=== PATIENT | female | born 1945 | race Caucasian/White ===

== ENCOUNTER 2020-04-29 14:36 | Emergency (ER) | payer MEDICARE, SELFPAY ==
[2020-04-29 14:44] VITALS: BP 140/61; PULSE 71; RESP 18; TEMP 37.5; O2SAT 97
--- NOTE | 2020-04-29 15:40 | ED.SKABFB ---
HPI - Skin/Abscess/Foreign Bdy General Chief complaint: Skin/Abscess/Foreign Body Stated complaint: sore on back of right arm Time Seen by Provider: 04/29/20 15:40 Source: patient Mode of arrival: ambulatory Limitations: no limitations History of Present Illness HPI narrative: Ronald Rivera is a 74 yo feale with a PMH of HTN, prediabetes, mixed connective tissue disease, high cholesterol, fibrosis of lung, here for complaints of swelling around cyst on right arm after scratching 3 to 4 days ago. She stated that she protects on the cyst which made the cyst become more edematous and she scratched it with her nails Related Data Home Medications Medication Instructions Recorded Confirmed flaxseed oil 1,000 mg capsule 1,000 mg PO DAILY 09/24/19 04/29/20 metoprolol succinate 25 mg 25 mg PO DAILY 09/24/19 04/29/20 tablet,extended release 24 hr omeprazole magnesium 20 mg 20 mg PO DAILY 09/24/19 capsule,delayed release propylene glycol 0.6 % eye drops 1 drop EACH EYE DAILY 09/24/19 04/29/20 hydroxychloroquine 04/29/20 04/29/20 Allergies Allergy/AdvReac Type Severity Reaction Status Date / Time Sulfa (Sulfonamide Allergy Unknown Unknown Verified 04/29/20 15:27 Antibiotics) amoxicillin [From Augmentin] Allergy nausea and Verified 04/29/20 15:27 vomitting clavulanic acid Allergy nausea and Verified 04/29/20 15:27 [From Augmentin] vomitting Review of Systems Review of Systems: Narrative: CONSTITUTIONAL: Denies fever, chills, sweats. EYES: Denies visual changes, redness, discharge. ENT: Denies rhinorrhea, congestion, sore throat, otalgia. CARDIOVASCULAR: Denies chest pain, palpitations, edema. RESPIRATORY: Denies dyspnea, wheezing, cough GASTROINTESTINAL: Denies abdominal pain, nausea, vomiting, diarrhea. GENITOURINARY: Denies dysuria, hematuria, abnormal discharge SKIN: Denies rash or itching. Redness and swelling around existing cyst, NEUROLOGIC: Denies numbness, or focal weakness. PSYCHIATRIC: Denies anxiety or depression. [facility] Surgical History Surgical History H/O cataract extraction 09-03-13, 10-03-13 H/O hernia repair (06/03/15) H/O tubal ligation (1979) H/O: hysterectomy (1987) vaginal Hx of cholecystectomy (06/03/15) Family History Family History Mother Hypertension Family history of coronary artery disease Family history of heart disease in male family member before age 55 Father Family history of emphysema Social History Social History Smoking status: Former smoker Smoking end date: 11/03/1965 Alcohol intake: never Gender identity (if verbalized by the patient): Female Comments At time of signature, I agree with nursing past medical, surgical, social and family history. There is no relevant family history pertinent to the presenting complaint. Exam Narrative: Exam Narrative: GENERAL: This is a well-nourished, well-developed patient, in no distress. HEAD: normocephalic, atraumatic. EYES: Sclera clear/white. Vision is grossly intact. EARS: External ears normal. Hearing grossly intact. NOSE: External nose normal without nasal discharge, nares without redness, no rhinorrhea. THROAT: Mucous membranes moist, NECK: Neck supple, CARDIOVASCULAR: Regular rate and rhythm without murmurs, gallops, or rubs. RESPIRATORY: Clear to auscultation. Breath sounds equal bilaterally. No wheezes, rales, or rhonchi. GASTROINTESTINAL: Abdomen soft, non-tender, SKIN: warm, intact with no suspicious lesions or rash, good texture and turgor. Redness and swelling around cyst on back of right upper arm, minimal induration NEURO: awake, alert, and oriented to person, place and time. There were no obvious focal neurologic abnormalities. Steady gait EXTREMITIES: Normal range of motion. BACK: Nontender without deformity Course C
== END 2020-04-29 16:05 | disposition home or self-care (01) ==
PROVIDERS: Emergency Provider Nurse Practitioner; PCP Family Medicine
DX: L03.113 Cellulitis of right upper limb (principal); I10 Essential (primary) hypertension; R73.03 Prediabetes; E78.00 Pure hypercholesterolemia, unspecified; J84.10 Pulmonary fibrosis, unspecified; M35.1 Other overlap syndromes; Z98.49 Cataract extraction status, unspecified eye; Z87.891 Personal history of nicotine dependence
CPT/HCPCS: 99213; G0463

== ENCOUNTER 2020-08-29 14:26 | Outpatient (CLI) | payer MEDICARE, SELFPAY ==
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
== END 2020-08-29 14:27 | disposition home or self-care (01) ==
PROVIDERS: PCP Family Medicine; Visit Provider Obstetrics & Gynecology
DX: Z12.31 Encounter for screening mammogram for malignant neoplasm of breast (principal)
CPT/HCPCS: 77063; 77067

== ENCOUNTER 2021-08-03 14:47 | Outpatient (CLI) | payer MEDICARE, SELFPAY ==
--- NOTE | ~2021-08-03 | XR_ITS ---
XR lumbar spine 2-3V DATE: 08/03/2021 15:38 INDICATION: Hip pain for 2 weeks TECHNIQUE: AP, lateral, coned lateral lumbosacral views COMPARISON: 05/04/2009 lumbar spine FINDINGS: There is advanced of multilevel degenerative disc disease since 05/04/2009; there is severe d egenerative disc disease at L1-2, moderately severe degenerative disc disease at L2-3, L3-4 and L4-5 and L5-S1. No fracture or bone destruction is evident. The included lower thoracic and lumbar pedicles are intac t. No spondylolisthesis. The sacroiliac joints are normal. Right hip prosthesis. Surgical clips overlie the right upper quadrant, consistent with cholecystectomy. IMPRESSION: Prominent multilevel degenerative disc disease, increased in severity since 05/04/2009 Reviewed, dictated and finalized at location B. IMPRESSION: Prominent multilevel degenerative disc disease, increased in severi ty since 05/04/2009
--- NOTE | ~2021-08-03 | XR_ITS ---
XR hip BI wo pelvis DATE: 08/03/2021 15:38 INDICATION: Hip pain for 2 weeks TECHNIQUE: AP and lateral views of each hip COMPARISON: None FINDINGS: Right hip prosthesis is noted. No fracture or dislocation of the right hip is detected. There is moderately prominent osteoarthritic change at the left hip including joint space narrowing a nd degenerative spurring. No fracture, dislocation, avascular necrosis or bone destruction is detecte d. The pubic symphysis and sacroiliac joints are intact. Diffuse osteopenia. IMPRESSION: Right hip replacement Moderately prominent left hip osteoarthritis No fracture, dislocation or bone destruction of either hip Osteopenia Reviewed, dictated and finalized at location B.
--- NOTE | ~2021-08-03 | XR_ITS ---
XR knee RT 3V DATE: 08/03/2021 15:37 INDICATION: Right knee pain TECHNIQUE: AP, lateral, sunrise views COMPARISON: None FINDINGS: There is tricompartment osteoarthritis, most prominent at the medial compartment. No fracture or dislocation or joint effusion. No periosteal reaction or bone destruction. No radiopaq ue interarticular loose body or chondrocalcinosis is detected. IMPRESSION: Tricompartment osteoarthritis Reviewed, dictated and finalized at location B.
--- NOTE | ~2021-08-03 | XR_ITS ---
XR knee LT 3V DATE: 08/03/2021 15:38 INDICATION: Left knee pain TECHNIQUE: Raoul, AP and lateral views COMPARISON: None FINDINGS: There is tricompartment osteoarthritis, most prominent at the medial compartment. No fracture or dislocation or joint effusion, periosteal reaction or bone destruction, radiopaque int ra-articular loose body or chondrocalcinosis. IMPRESSION: Tricompartment osteoarthritis Reviewed, dictated and finalized at location B.
--- NOTE | ~2021-08-03 | XR_ITS ---
XR foot RT min 3V DATE: 08/03/2021 15:39 INDICATION: Right foot pain for 2 weeks TECHNIQUE: 4 views COMPARISON: 05/19/2019 right foot FINDINGS: Again noted is hallux valgus and bunion deformity. There is osteoarthritic change at the fi rst metatarsophalangeal joint and second metatarsophalangeal joint, to a lesser extent third metatars ophalangeal joint. There is interval severe hypertrophic osteoarthritic change at the first through fifth tarsometatarsa l joints, suggesting neuropathic arthropathy. There is a generator change at the ankle joint. Plantar calcaneal enthesopathy. IMPRESSION: Interval severe hypertrophic osteoarthritic change at the first through fifth metatarsal bones suggesting possible neuropathic arthropathy Osteoarthritic change at the tibiotalar and first through third metatarsophalangeal joints Plantar calcaneal enthesopathy Reviewed, dictated and finalized at location B. IMPRESSION: Interval severe hypertrophic osteoarthritic change at the first thr ough fifth metatarsal bones suggesting possible neuropathic arthropathy Osteoarthritic change at the tibiotalar and first through third metatarsophalan geal joints Plantar calcaneal enthesopathy
== END 2021-08-03 14:48 | disposition home or self-care (01) ==
LOC: ANHIMG 14:56
PROVIDERS: PCP Family Medicine; Visit Provider Family Medicine
DX: M25.559 Pain in unspecified hip (principal); M25.561 Pain in right knee; M25.562 Pain in left knee; M54.50 Low back pain, unspecified; M79.671 Pain in right foot; M77.31 Calcaneal spur, right foot; M17.0 Bilateral primary osteoarthritis of knee; Z96.641 Presence of right artificial hip joint; M16.11 Unilateral primary osteoarthritis, right hip; M85.89 Other specified disorders of bone density and structure, multiple sites; M51.36 Other intervertebral disc degeneration, lumbar region
CPT/HCPCS: 72100; 73521; 73562; 73630

== ENCOUNTER 2021-08-17 15:12 | Outpatient (CLI) | payer MEDICARE, SELFPAY ==
--- NOTE | ~2021-08-17 | US_ITS ---
EXAMINATION: US venous doppler LE RT DATE: 08/17/2021 15:38 INDICATION: Right lower limb pain. TECHNIQUE: Grayscale ultrasound images without and with compression and Doppler ultrasound images of the right lower extremity veins were obtained. COMPARISON: None. FINDINGS: The visualized portions of right common femoral vein, profunda (deep) femoral vein, femoral vein, pop liteal vein, peroneal veins, posterior tibial veins, and greater saphenous vein outflow are patent. IMPRESSION: 1. No deep venous thrombosis. Reviewed, dictated and finalized at location A.
== END 2021-08-17 15:13 | disposition home or self-care (01) ==
LOC: ANHIMG 15:15
PROVIDERS: PCP Family Medicine; Visit Provider Family Medicine
DX: M79.671 Pain in right foot (principal)
CPT/HCPCS: 93971

== ENCOUNTER 2021-08-23 15:29 | Outpatient (CLI) | payer MEDICARE, SELFPAY ==
--- NOTE | ~2021-08-23 | MM_ITS ---
EXAMINATION: MM screening freddy BI w cameron HISTORY: Screening mammogram TECHNIQUE: Craniocaudal and mediolateral oblique 3-D tomosynthesis images were obtained and synthetic 2-D images were generated. CAD analysis was submitted and interpreted. COMPARISON: 08/29/2020, 08/27/2018, 04/09/2017 bilateral digital screening mammogram examinations BREAST PARENCHYMAL COMPOSITION: There are scattered areas of fibroglandular density. FINDINGS: Prominent area of benign fat necrosis is again noted in the upper mid outer right breast. T here is no evidence of suspicious mass, calcification, or architectural distortion to suggest maligna ncy in either breast. There has been no suspicious interval change. IMPRESSION: 1. No mammographic evidence of malignancy. 2. Recommend routine screening mammography in one year. BI-RADS Category 2: Benign finding(s). Reviewed, dictated and finalized at location A.
== END 2021-08-23 15:30 | disposition home or self-care (01) ==
LOC: ANHIMG 15:34
PROVIDERS: PCP Family Medicine; Visit Provider Obstetrics & Gynecology
DX: Z12.31 Encounter for screening mammogram for malignant neoplasm of breast (principal)
CPT/HCPCS: 77063; 77067

== ENCOUNTER 2024-12-28 08:34 | Outpatient (CLI) | payer MEDICARE, SELFPAY ==
--- OUTSIDE RECORDS SUMMARY | 2024-12-28 08:48 | XMS_ITS | Encounter Summary ---
Author Organization [facility] Address [address] [place] [address] Care Team Providers Care Utilization Review Nurse Name Role Phone Faith Shukla DO Primary Care Provider [phone] Reason for Visit * Reason Onset Date Comments Results 09/19/2020 BMP Encounter Details Date Type Department Care Team (Late Contact Info) Description 09/19/2020 Telephone [facility] [address] [place] [address] Keagan Swan MD [address] [place] [address] Results (BMP) Social History Tobacco Use Types Packs/Day Years Used Date Smoking Tobacco: Former Cigarettes 0.5 2 1 963 - 11/03/1964 Smokeless Tobacco: Never Alcohol Use Standard Drinks/Week Comments Yes 0 (1 standard drink = 0.6 oz pur e alcohol) Ocassional drink Sex and Gender Information Value Date Recorded Sex Assigned at Not on file Gender Identity Not on file Sexual Orientation Not on file documented as of this encounter Plan of Treatment Upcoming Encounters Date Type Department Care Team (Late Contact Info) Description 06/30/2025 10:00 AM CDT Office Visit [facility] [address] [place] [id number] Nita Lundy, APNP-[employer] [address] OF PULMONARY/[place] [address] documented as of this encounter Goals Goal Patient Goal Type Associated Problems Recent Progress Patient-Stated? Author Safety General On track( 019 2:02 PM CDT) Nita Maria, RN Note: Expected end date: ONgonig Interventions: Your nurse will assess your risk for falls/injury each visit Use appropriate and safe transfer methods Medication Management General On track( 019 2:01 PM CDT) Nita Maria, RN Note: Expected end date: Ongoing Interventions: Take all medications as prescribed Let your doctor know right away about any changes in your medications documented as of this encounter Visit Diagnoses Not on filedocumented in this encounter Care Teams Utilization Review Nurse Relationship Specialty Start Date End Date Faith Shukla DO [address] [address] PCP - General 05/30/20 documented as of this encounter
--- OUTSIDE RECORDS SUMMARY | 2024-12-28 08:48 | XMS_ITS | Referral Summary ---
Author Organization [facility] [employer] Address [address] [place] [address] Care Team Providers Care Analyst Business Analysis Name Role Phone Faith Shukla DO Primary Care Provider [phone] Source Comments [facility],non-owned Affiliates and Associated Physician Practices is amultiple site organization consisting of ambulatory clinics and hospital sitesin [place], [place], [place] and [place]. This disclosure is being madepursuant to the Care Everywhere program and may not contain all information available regarding this patient. Last updated 18.[facility] [employer] Allergies Active Allergy Reactions Criticality Noted Date Comments Amoxicillin-Pot Clavulanate Rash,Nausea and/or Vomiting High 10/20/2019 Augmentin Nausea and/or Vomiting 03/19/2019 Celecoxib Nausea and/or Vomiting 05/17/2019 Clavulanic Acid Rash,Vomiting Medium 04/12/2019 Sulfa Drugs Nausea and/or Vomiting Low 06/23/2012 Medications * Be aware that medications may not be up to date on this document. Alwaysverify current medications with the patient. Medication Sig Dispensed Refills Start Date End Date Status meloxicam (MOBIC) 15 MG tablet Take 1 (one) tablet by mouth once daily 3 12/30/2017 Active atorvastatin (LIPITOR) 10 MG tablet Take 1 (one) tablet by mouth once daily 06/25/2021 Active Cholecalciferol (VITAMIN D3) 1.25 MG (61419 UT) capsule Take 1 (one) capsule by mouth every 7 days Active hydroxypropyl methylcellulose (Genteal; Genteal Mild To Moderate) 0.3 % ophthalmic solution 1 drop by Ophthalmic route once daily as needed Active carvedilol (Coreg) 6.25 MG tablet Take 1 (one) tablet by mouth every 12 hours 01/23/2023 Active acetaminophen (Tylenol) 500 MG capsule Take 2 (two) capsules by mouth every 8 hours 01/09/2023 Active Eliquis 5 MG tablet Take 1 (one) tablet by mouth 2 times daily 01/20/2024 Active losartan (Cozaar) 100 MG tablet Take 1 (one) tablet by mouth once daily 03/12/2024 03/12/2025 Active Active Problems Problem Noted Date Diagnosed Date Diastolic dysfunction 08/19/2023 08/27/2023 Pulmonary hypertension 08/30/2022 Venous insufficiency 01/04/2020 Assessment & Plan (08/30/2020 1:22 PM CDT): Resolved, not tolerating HCTZ previously stopped. Pt monitoring salt and leg elevation with improvement. 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 Did not tolerated HCTZ. Swelling improved, did not tolerate change to BID metoprolol she is now back on Metoprolol XL with controled HR. Will add Norvasc 2.5 mg daily and she will call in one week with report on effects of her blood pressure. Follow up with Dr. Walters in 3 months. Assessment & Plan (08/30/2020 1:20 PM CDT): Per pt report, BP remains above goal. Did not tolerated HCTZ. Swelling improved, will change Metoprolol to 25mg BID and follow up in three months telephone, telemedicine follow up. My Chart Message Akila in 2-3 weeks with BP log. OA (osteoarthritis) Osteoporosis Idiopathic peripheral neuropathy Bilateral carpal tunnel syndrome Immunizations Name Administration Dates Next Due INFLUENZA VACCINE, TRIV. (AF LURIA, FLUZONE TRIVALENT; 6MO+) (IIV3) 09/10/2007 Covid Moderna primary monovalent 12+ yr 0.5mL ,11/30/2020 INFLUENZA VACCINE 07/22/2022 INFLUENZA VACCINE, HIGH-DOSE , QUADR. (FLUZONE HIGH-DOSE QUADRIVALENT; 65Y+), 0.7 ML (HD-IIV4) 09/17/2021 MODERNA SARS-COV-2 COVID-19 VACCINE 0.25ML 09/22 PNEUMOCOCCAL PPSV23 09/06/2010 Pneumococcal Pcv13 Conj 05/30/2015 TDAP (7yrs+) 03/27/2017 iNFLUENZA VACCINE, RECOM-PADILLA, QUADR. (FLUBLOCK QUADRIVALENT; 18Y+) (RIV4) 09/01/2020 Social History Tobacco Use Types Packs/Day Years Used Date Smoking Tobacco: Former Cigarettes 0.5 2 1 963 - 11/03/1964 Smokeless Tobacco: Never Tobacco Cessation:Counseling Given: No Alcohol Use Standard Drinks/Week Comments Not Currently 0 (1 standard drink = 0.6 oz pur e alcohol) Ocassional drink PHQ-2 Answer Date Recorded PHQ2 TOTAL SCORE 0 03/18/2022 Sex and Gender Information Value Date Recorded Sex Assigned at Not on file Gender Identity Not on file Sexual Orientation Not on file Last Filed Vital Signs Vital Sign Reading Time Taken Comments Blood Pressure 165/75 06/30/2024 4:00 PM CDT Pulse 85 06/30/2024 4:00 PM CDT Temperature 36.4 C (97.6 F) 03/01/2024 1:26 PM CDT Respiratory Rate 22 05/19/2023 2:44 PM CDT Oxygen Saturation 96% 03/01/2024 1:26 PM CDT Inhaled Oxygen Concentration - - Weight 106.1 kg (234 lb) 06/30/2024 4:00 PM CDT Height 165.1 cm (5' 5 ) 06/30/2024 4:00 PM CDT Body Mass Index 38.94 06/30/2024 4:00 PM CDT Plan of Treatment Upcoming Encounters Date Type Department Care Team (Late st Contact Info) Description 06/30/2025 10:00 AM CDT Office Visit [facility] - [facility] [address] [place] [address] Nita Lundy, APNP-[employer] NET DEVELOPER [address] OF PULMONARY/[place] [address] Goals Goal Patient Goal Type Associated Problems Recent Progress Patient-Stated? Author Safety General On track( 2:02 PM CDT) No Nita Anaya, RN Note: Expected end date: ONgonig Interventions: Your nurse will assess your risk for falls/injury each visit Use appropriate and safe transfer methods Medication Management General On track( 2:01 PM CDT) No Nita Anaya, RN Note: Expected end date: Ongoing Interventions: Take all medications as prescribed Let your doctor know right away about any changes in your medications Advance Directives Documents on File Type Date Recorded Patient Manager [employer] Advance Directives and Livin g Will 06/15/2015 12:00 AM Care Teams Analyst Business Analysis Relationship Specialty Start Date End Date Faith Shukla DO [address] [place] [address] PCP - General 05/30/20
--- OUTSIDE RECORDS SUMMARY | 2024-12-28 08:48 | XMS_ITS | Clinical Summary ---
Author Organization [facility] [employer] Address [address] [place] [address] Care Team Providers Care Rn Assessment Name Role Phone Faith Shukla DO Primary Care Provider [phone] Source Comments [facility] [employer],non-owned Affiliates and Associated Physician Practices is amultiple site organization consisting of ambulatory clinics and hospital sitesin [place], [place], [place] and [place]. This disclosure is being madepursuant to the Care Everywhere program and may not contain all information available regarding this patient. 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 [...] RECOM-PADILLA, QUADR. (FLUBLOCK QUADRIVALENT; 18Y+) (RIV4) 09/01/2020 Family History Medical History Relation Name Comments Hyperlipidemia Brother 1 Hyperlipidemia Brother 2 Other - Cardiac Brother 2 afib Sleep Disorder - Other Brother 2 zayda Diabetes - Type 2 Daughter Hypertension Daughter COPD - Chronic Obstructive Pulmonary Disease Father Depression Father Emphysema Father Status: d Anxiety Disorder Mother Bleeding Disorders Mother CAD (Coronary Artery Disease) Mother Heart Disease Mother Status: Deceas ed Heart Surgery Mother angioplasty Hyperlipidemia Mother Hypertension Mother Renal Disease Mother None Known Son Status: Alive Relation Name Status Comments Brother 1 Alive Brother 2 Alive Daughter Alive Father Maternal Grandmother Alive Mother Son Alive Social History Tobacco Use Types Packs/Day Years [...] Description 06/30/2025 10:00 AM CDT Office Visit [facility] - [facility] [address] [place] [address] Nita Lundy, APNP-HEEL PRICKER [address] [facility] [address] OF PULMONARY/[place] [address] Health Maintenance Due Date Last Done Comments BONE DENSITY TESTING 1945 MEDICARE AWV 12 MONTHS 1945 ZOSTER VACCINE (1 of 2) 1995 Respiratory Syncytial Virus (RSV) Vaccine Pt: or over 60 yrs (1 - 1-dose 75+ series) 2020 COVID-19 VACCINE ( season) 2024 09/22/2021, 01/04/2021, 11/30/2020 INFLUENZA VACCINE (#1) 2024 2, 09/17/2021, 09/01/2020, Additional history exists DEPRESSION SCREENING 11/03/2024 07/17/2022 DTAP/TDAP/TD VACCINES (2 - Td or Tdap) 03/27/2027 03/27/2017 PNEUMOCOCCAL VACCINE 50+ Completed 05/30/2015, 02/2010 HEPATITIS B VACCINE Aged Out No longe r eligible based on patient's age to complete this topic HIB VACCINE Aged Out No longer eligi ble based on patient's age to complete this topic HPV VACCINE Aged Out No longer eligi ble based on patient's age to complete this topic MENINGOCOCCAL (Group B) VACCINE Aged Out No longer eligible based on patient's age to complete this topic MENINGOCOCCAL VACCINE Aged Out No michelle stuart eligible based on patient's age to complete this topic Goals Goal Patient Goal Type Associated Problems Recent Progress Patient-Stated? Author Safety General On track( 2:02 PM CDT) No Nita Anaya, JILLIAN Note: Expected end date: ONgonig Interventions: Your nurse will assess your risk for falls/injury each visit Use appropriate and safe transfer methods Medication Management General On track( 2:01 PM CDT) No Nita Anaya, JILLIAN Note: Expected end date: Ongoing Interventions: Take all medications as prescribed Let your doctor know right away about any changes in your medications Advance Directives Documents on File Type Date Recorded Patient Surveillance Monitor Expl anation Advance Directives and Livin g Will 06/15/2015 12:00 AM Care Teams Rn Assessment Relationship Specialty Start Date End Date Faith Shukla DO [address] [place] [address] PCP - General 05/30/20
--- OUTSIDE RECORDS SUMMARY | 2024-12-28 08:48 | XMS_ITS | Clinical Summary ---
Author Organization [facility] Address [address] [place] [id number] Care Team Providers Care Floatlight Powder Mixer Name Role Phone David Pantoja MD Primary Care Provider Social History Tobacco Use Types Packs/Day Years Used Date Smoking Tobacco: Never Assessed Comments Unknown Sex and Gender Information Value Date Recorded Sex Assigned at Not on file Legal Sex Female 6:23 PM CDT Gender Identity Not on file Sexual Orientation Not on file Last Filed Vital Signs Vital Sign Reading Time Taken Comments Blood Pressure 120/80 04/02/2013 11:33 AM CDT Pulse - - Temperature - - Respiratory Rate - - Oxygen Saturation - - Inhaled Oxygen Concentration - - Weight 98 kg (216 lb) 04/02/2013 11:33 AM CDT Height 162.6 cm (5' 4 ) 04/02/2013 11:33 AM CDT Body Mass Index 37.08 04/02/2013 11:33 AM CDT Plan of Treatment Health Maintenance Due Date Last Done Comments Hepatitis C 1963 DTaP, Tdap and Td Vaccines ( 1 - Tdap) 1964 Zoster Vaccines (1 of 2) 1995 Dexa Scan (General) 2010 Pneumococcal Vaccine: 65+ Ye ars (1 of 1 - PCV) 2010 RSV Immunization or 60+ Years (1 - 1-dose 75+ series) 2020 COVID-19 Vaccine ( - 2023-2 5 season) 2024 Influenza Adult (#1) 2024 Meningococcal B Vaccine Aged Out No l onger eligible based on patient's age to complete this topic Meningococcal Vaccine Aged Out No michelle stuart eligible based on patient's age to complete this topic RSV Immunizations Under 20 Months Aged Out No longer eligible based on patient's age to complete this topic Care Teams Floatlight Powder Mixer Relationship Specialty Start Date End Date David Pantoja MD [address] [place] [address] PCP - General 11/06/15
--- OUTSIDE RECORDS SUMMARY | 2024-12-28 08:49 | XMS_ITS | Continuity of Care Document ---
Author Organization [facility] Address [address] [facility], [place] [address] [place] [address] Phone Care Team Providers Care Leather Grainer Name Role Phone Leni OD OD, Juarez Unavailable Unavailabl e Advance Directives Directive Yes / No Effective Date File Name No Information Encounters Encounter Description Practice Location Reason(s) For Visit Diagnoses Date Provider Providers Copied on Encounter [facility], [address] [place], [place], [id number], [place] tel:[phone] [facility] No Information Leni OD Juarez. [address], [place], [id number], [place]. tel:[phone] Family History Family Member Type Diagnosis Age At Onset No Information Payers Payer name Insurance type Covered green party ID Authoriza tion(s) No Information Social History Type Description Quantity Date Captured Comments Sex Female Smoking Status No Information Chief Complaint And Reason For Visit No Information Reason For Referral Reason For Referral No Information History Of Present Illness Encounter Date Complaint History Of Prese nt Illness No Information Functional Status Date Functional Assessmen t No Information Instructions Date Instruction Additional Infor mation No Information Assessments Type Assessment Date No Information Patient Care Teams Name Effective Dates (start - stop) Status Members No Information
--- OUTSIDE RECORDS SUMMARY | 2024-12-28 08:49 | XMS_ITS | Patient Health Summary ---
Author Organization [facility] Address [address] [place] [address] Care Team Providers Care Software Engineer Name Role Phone Faith Shukla DO Primary Care Provider [phone] Note from [facility],non-owned Affiliates and Associated Physician Practices is amultiple site organization consisting of ambulatory clinics and hospital sitesin [place] and [place]. This disclosure is being madepursuant to the Care Everywhere program and may not contain all information available regarding this patient. Last updated 18.[facility] Allergies * Amoxicillin-Pot Clavulanate(Rash,Nausea and/or Vomiting) -High Criticality * Augmentin(Nausea and/or Vomiting) * Celecoxib(Nausea and/or Vomiting) * Clavulanic Acid(Rash,Vomiting) -Medium Criticality * Sulfa Drugs(Nausea and/or Vomiting) -Low Criticality Medications * Be aware that medications may not be up to date on this document. Alwaysverify current medications with the patient. * meloxicam (MOBIC) 15 MG tablet(Started 12/30/2017) Take 1 (one) tablet by mouth once daily 3 refills left * atorvastatin (LIPITOR) 10 MG tablet(Started 06/25/2021) Take 1 (one) tablet by mouth once daily * Cholecalciferol (VITAMIN D3) 1.25 MG (33682 UT) capsule Take 1 (one) capsule by mouth every 7 days * hydroxypropyl methylcellulose (Genteal; Genteal Mild To Moderate) 0.3 % ophthalmic solution 1 drop by Ophthalmic route once daily as needed * carvedilol (Coreg) 6.25 MG tablet(Started 01/23/2023) Take 1 (one) tablet by mouth every 12 hours * acetaminophen (Tylenol) 500 MG capsule(Started 01/09/2023) Take 2 (two) capsules by mouth every 8 hours * Eliquis 5 MG tablet(Started 01/20/2024) Take 1 (one) tablet by mouth 2 times daily * losartan (Cozaar) 100 MG tablet(Started 03/12/2024) Take 1 (one) tablet by mouth once daily Active Problems Problem Noted Date Diagnosed Date Diastolic dysfunction 08/19/2023 08/27/2023 Pulmonary hypertension 08/30/2022 Venous insufficiency 01/04/2020 Leg swelling 01/04/2020 Elevated serum immunoglobulin free light chains 05/17/2019 NSIP (nonspecific interstitial pneumonia) 2018 Prediabetes 02/17/2019 Morbid obesity with BMI of 40.0-44.9, adult 02/01 Body mass index (BMI) 40.0-44.9, adult 9 Primary osteoarthritis of left knee 09/10/2018 MCTD (mixed connective tissue disease) 8 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 (AFLURIA, FLUZONE TRIVALENT; 6MO+) (IIV3)(Given 09/10/2007) * Richard Huynh primary monovalent 12+ yr 0.5mL(Given 01/04/2021, 11/30/2020) * INFLUENZA VACCINE(Given 07/22/2022) * INFLUENZA VACCINE, HIGH-DOSE, QUADR. (FLUZONE HIGH-DOSE QUADRIVALENT; 65Y+), 0.7 ML (HD-IIV4)(Given 09/17/2021) * MODERNA SARS-COV-2 COVID-19 VACCINE 0.25ML(Given 09/22/2021) * PNEUMOCOCCAL PPSV23(Given 09/06/2010) * Pneumococcal Pcv13 Conj(Given 05/30/2015) * TDAP (7yrs+)(Given 03/27/2017) * iNFLUENZA VACCINE, RECOM-PADILLA, QUADR. (FLUBLOCK QUADRIVALENT; 18Y+) (RIV4)(Given 09/01/2020) Social History Tobacco Use Types Packs/Day Years [...] Mass Index 38.94 06/30/2024 4:00 PM CDT Procedures * COMPLETE PFT W/WO BRONCHODILATOR(Performed 05/24/2024) Performed for Simple chronic bronchitis (HCC) * SIX MINUTE WALK(Performed 05/24/2024) Performed for Pulmonary fibrosis (HCC) * URINALYSIS W/MICROSCOPIC NO CULTURE(Performed 03/03/2024) Performed for MCTD (mixed connective tissue disease) ([facility]) * ERYTHROCYTE SEDIMENTATION RATE(Performed 03/03/2024) Performed for MCTD (mixed connective tissue disease) ([facility]) * C-REACTIVE PROTEIN(Performed 03/03/2024) Performed for MCTD (mixed connective tissue disease) ([facility]) * COMPREHENSIVE METABOLIC PANEL(Performed 03/03/2024) Performed for MCTD (mixed connective tissue disease) ([facility]) * CK BLOOD(Performed 03/03/2024) Performed for MCTD (mixed connective tissue disease) ([facility]) * CBC W/O DIFFERENTIAL(Performed 03/03/2024) Performed for MCTD (mixed connective tissue disease) ([facility]) * ALDOLASE(Performed 03/03/2024) Performed for MCTD (mixed connective tissue disease) ([facility]) * SCLEROSIS 12 ANTIBODY PNL(Performed 03/03/2024) Performed for MCTD (mixed connective tissue disease) ([facility]) * LUZ PANEL COMPREHENSIVE(Performed 03/03/2024) Performed for MCTD (mixed connective tissue disease) ([facility]) * COMPLETE PFT W/WO BRONCHODILATOR(Performed 05/19/2023) Performed for NSIP (nonspecific interstitial pneumonia) ([facility]), Pulmonary HTN ([facility]), Obstructive sleep apnea, Pulmonary fibrosis ([facility]), Simple chronic bronchitis ([facility]) * SIX MINUTE WALK(Performed 05/19/2023) Performed for NSIP (nonspecific interstitial pneumonia) ([facility]), Pulmonary HTN ([facility]), Obstructive sleep apnea, Pulmonary fibrosis ([facility]), Simple chronic bronchitis ([facility]) * ALDOLASE(Performed 05/12/2023) * HDEZ (SM)+HEAVY EQUIPMENT TECHNICIAN ANTIBODY PANEL(Performed 05/12/2023) * C-REACTIVE PROTEIN(Performed 05/12/2023) * URINALYSIS NO MICROSCOPIC NO CULTURE(Performed 05/12/2023) * CBC W/O DIFFERENTIAL(Performed 05/12/2023) * ERYTHROCYTE SEDIMENTATION RATE(Performed 05/12/2023) * CK BLOOD(Performed 05/12/2023) * COMPREHENSIVE METABOLIC PANEL(Performed 05/12/2023) * PFT(Performed 10/09/2022) * ECHO COMPLETE(Performed 07/17/2022) Performed for MCTD (mixed connective tissue disease) ([facility]) * HDEZ/HEAVY EQUIPMENT TECHNICIAN (RADHA) ANTIBODY IGG(Performed 05/13/2022) Performed for MCTD (mixed connective tissue disease) ([facility]) * PFT-LAB(Performed 05/13/2022) Performed for MCTD (mixed connective tissue disease) ([facility]) * LUZ BLOOD TITER(Performed 04/29/2022) * ALDOLASE(Performed 04/29/2022) * C-REACTIVE PROTEIN(Performed 04/29/2022) * COMPLEMENT C4(Performed 04/29/2022) * COMPLEMENT C3(Performed 04/29/2022) * CBC W/O DIFFERENTIAL(Performed 04/29/2022) * ERYTHROCYTE SEDIMENTATION RATE(Performed 04/29/2022) * CK BLOOD(Performed 04/29/2022) * COMPREHENSIVE METABOLIC PANEL(Performed 04/29/2022) * LUZ PANEL COMPREHENSIVE(Performed 04/29/2022) * HDEZ (SM)+HEAVY EQUIPMENT TECHNICIAN ANTIBODY PANEL(Performed 10/16/2021) Performed for MCTD (mixed connective tissue disease) ([facility]) * URINALYSIS W/MICROSCOPIC NO CULTURE(Performed 10/16/2021) Performed for MCTD (mixed connective tissue disease) ([facility]) * ERYTHROCYTE SEDIMENTATION RATE(Performed 10/16/2021) Performed for MCTD (mixed connective tissue disease) ([facility]) * C-REACTIVE PROTEIN(Performed 10/16/2021) Performed for MCTD (mixed connective tissue disease) ([facility]) * COMPREHENSIVE METABOLIC PANEL(Performed 10/16/2021) Performed for MCTD (mixed connective tissue disease) ([facility]) * CK BLOOD(Performed 10/16/2021) Performed for MCTD (mixed connective tissue disease) ([facility]) * CBC W/O DIFFERENTIAL(Performed 10/16/2021) Performed for MCTD (mixed connective tissue disease) ([facility]) * ALDOLASE(Performed 10/16/2021) Performed for MCTD (mixed connective tissue disease) ([facility]) * ECHO COMPLETE(Performed 07/17/2021) Performed for MCTD (mixed connective tissue disease) ([facility]) * ALDOLASE(Performed 05/09/2021) * C-REACTIVE PROTEIN(Performed 05/09/2021) * COMPLEMENT C4(Performed 05/09/2021) * COMPLEMENT C3(Performed 05/09/2021) * URINALYSIS W/MICROSCOPIC NO CULTURE(Performed 05/09/2021) * CBC W/O DIFFERENTIAL(Performed 05/09/2021) * ERYTHROCYTE SEDIMENTATION RATE(Performed 05/09/2021) * CK BLOOD(Performed 05/09/2021) * COMPREHENSIVE METABOLIC PANEL(Performed 05/09/2021) * LUZ PANEL COMPREHENSIVE(Performed 05/09/2021) * ALDOLASE(Performed 11/27/2020) * HDEZ (SM)+HEAVY EQUIPMENT TECHNICIAN ANTIBODY PANEL(Performed 11/27/2020) * C-REACTIVE PROTEIN(Performed 11/27/2020) * CBC W/O DIFFERENTIAL(Performed 11/27/2020) * ERYTHROCYTE SEDIMENTATION RATE(Performed 11/27/2020) * URINALYSIS W/MICROSCOPIC NO CULTURE(Performed 11/27/2020) * CK BLOOD(Performed 11/27/2020) * COMPREHENSIVE METABOLIC PANEL(Performed 11/27/2020) * BASIC METABOLIC PANEL (CALCIUM TOTAL)(Performed 08/29/2020) Performed for MCTD (mixed connective tissue disease) ([facility]) * AMB REFERRAL TO CARDIOLOGY(Performed 05/30/2020) Performed for MCTD (mixed connective tissue disease) ([facility]) * PROC EKG IN CLINIC(Performed 05/30/2020) Performed for MCTD (mixed connective tissue disease) ([facility]) * ECHO COMPLETE(Performed 04/11/2020) Performed for NSIP (nonspecific interstitial pneumonia) ([facility]), MCTD (mixed connective tissue disease) ([facility]) * SIX MINUTE WALK(Performed 04/11/2020) Performed for NSIP (nonspecific interstitial pneumonia) ([facility]), MCTD (mixed connective tissue disease) ([facility]) * COMPLETE PFT W/WO BRONCHODILATOR(Performed 04/11/2020) Performed for NSIP (nonspecific interstitial pneumonia) ([facility]), MCTD (mixed connective tissue disease) ([facility]) * URINALYSIS W/MICROSCOPIC NO CULTURE(Performed 04/04/2020) Performed for MCTD (mixed connective tissue disease) ([facility]), Encounter for therapeutic drug level monitoring * ERYTHROCYTE SEDIMENTATION RATE(Performed 04/04/2020) Performed for MCTD (mixed connective tissue disease) ([facility]), Encounter for therapeutic drug level monitoring * C-REACTIVE PROTEIN(Performed 04/04/2020) Performed for MCTD (mixed connective tissue disease) ([facility]), Encounter for therapeutic drug level monitoring * COMPREHENSIVE METABOLIC PANEL(Performed 04/04/2020) Performed for MCTD (mixed connective tissue disease) ([facility]), Encounter for therapeutic drug level monitoring * CK BLOOD(Performed 04/04/2020) Performed for MCTD (mixed connective tissue disease) ([facility]), Encounter for therapeutic drug level monitoring * CBC W/O DIFFERENTIAL(Performed 04/04/2020) Performed for MCTD (mixed connective tissue disease) ([facility]), Encounter for therapeutic drug level monitoring * ALDOLASE(Performed 04/04/2020) Performed for MCTD (mixed connective tissue disease) ([facility]), Encounter for therapeutic drug level monitoring * MRI IAC WWO CONTRAST(Performed 11/29/2019) Performed for Unilateral vestibular schwannoma ([facility]) * CREATININE BLOOD - POCT (IP) SLH(Performed 11/29/2019) Performed for Conductive hearing loss of both ears * URINALYSIS REFLEX TO MICROSCOPIC NO CULTURE(Performed 10/04/2019) Performed for MCTD (mixed connective tissue disease) ([facility]), Encounter for therapeutic drug level monitoring * ERYTHROCYTE SEDIMENTATION RATE(Performed 10/04/2019) Performed for MCTD (mixed connective tissue disease) ([facility]), Encounter for therapeutic drug level monitoring * C-REACTIVE PROTEIN(Performed 10/04/2019) Performed for MCTD (mixed connective tissue disease) ([facility]), Encounter for therapeutic drug level monitoring * COMPREHENSIVE METABOLIC PANEL(Performed 10/04/2019) Performed for MCTD (mixed connective tissue disease) ([facility]), Encounter for therapeutic drug level monitoring * CK BLOOD(Performed 10/04/2019) Performed for MCTD (mixed connective tissue disease) ([facility]), Encounter for therapeutic drug level monitoring * CBC W AUTO DIFFERENTIAL(Performed 10/04/2019) Performed for MCTD (mixed connective tissue disease) ([facility]), Encounter for therapeutic drug level monitoring * ALDOLASE(Performed 10/04/2019) Performed for MCTD (mixed connective tissue disease) ([facility]), Encounter for therapeutic drug level monitoring * LUZ PANEL COMPREHENSIVE(Performed 10/04/2019) Performed for MCTD (mixed connective tissue disease) ([facility]), Encounter for therapeutic drug level monitoring * SCLEROSIS 12 ANTIBODY PNL(Performed 10/04/2019) Performed for MCTD (mixed connective tissue disease) ([facility]), Encounter for therapeutic drug level monitoring * XR WRIST LEFT 3VW OR MORE(Performed 07/19/2019) Performed for Bilateral carpal tunnel syndrome * XR WRIST RIGHT 3VW OR MORE(Performed 07/19/2019) Performed for Bilateral carpal tunnel syndrome * PROTEIN ELECTROPHORESIS URINE RANDOM(Performed 04/22/2019) Performed for Epithelial (juvenile) corneal dystrophy, Conductive hearing loss of both ears, Sensorineural hearing loss of both ears, Obstructive sleep apnea, Pulmonary fibrosis ([facility]), Iron deficiency, Vitamin B12 deficiency, Encounter for therapeutic drug level monitoring, 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[facility]), Pseudophakia, both eyes * KAPPA/LAMBDA LITE CHAIN FREE PANEL(Performed 04/22/2019) Performed for Neuropathy, Bilateral carpal tunnel syndrome * PROTEIN ELECTROPHORESIS BLOOD(Performed 04/22/2019) Performed for Neuropathy, Bilateral carpal tunnel syndrome * RUIZ URINE(Performed 04/22/2019) Performed for Neuropathy, Bilateral carpal tunnel syndrome * IMMUNOFIXATION BLOOD(Performed 04/22/2019) Performed for Neuropathy, Bilateral carpal tunnel syndrome * HEMOGLOBIN A1C(Performed 04/22/2019) Performed for Diabetes mellitus screening * IGA BLOOD(Performed 04/22/2019) Performed for Abdominal bloating, Flatulence, Diarrhea, unspecified type * TISSUE TRANSGLUTAMINASE AB IGA(Performed 04/22/2019) Performed for Abdominal bloating, Flatulence, Diarrhea, unspecified type * COMPLETE PFT W/WO BRONCHODILATOR(Performed 04/15/2019) Performed for MCTD (mixed connective tissue disease) ([facility]) * SIX MINUTE WALK(Performed 04/15/2019) Performed for MCTD (mixed connective tissue disease) ([facility]) * ECHO COMPLETE(Performed 04/05/2019) Performed for MCTD (mixed connective tissue disease) ([facility]) * URINALYSIS W/MICROSCOPIC NO CULTURE(Performed 03/15/2019) Performed for MCTD (mixed connective tissue disease) ([facility]), Encounter for therapeutic drug level monitoring * TSH REFLEX FREE T4(Performed 03/15/2019) Performed for MCTD (mixed connective tissue disease) ([facility]), Encounter for therapeutic drug level monitoring * ERYTHROCYTE SEDIMENTATION RATE(Performed 03/15/2019) Performed for MCTD (mixed connective tissue disease) ([facility]), Encounter for therapeutic drug level monitoring * C-REACTIVE PROTEIN(Performed 03/15/2019) Performed for MCTD (mixed connective tissue disease) ([facility]), Encounter for therapeutic drug level monitoring * COMPREHENSIVE METABOLIC PANEL(Performed 03/15/2019) Performed for MCTD (mixed connective tissue disease) ([facility]), Encounter for therapeutic drug level monitoring * CK BLOOD(Performed 03/15/2019) Performed for MCTD (mixed connective tissue disease) ([facility]), Encounter for therapeutic drug level monitoring * CBC W AUTO DIFFERENTIAL(Performed 03/15/2019) Performed for MCTD (mixed connective tissue disease) ([facility]), Encounter for therapeutic drug level monitoring * ALDOLASE(Performed 03/15/2019) Performed for MCTD (mixed connective tissue disease) ([facility]), Encounter for therapeutic drug level monitoring * IMMUNOGLOBULINS IGG/IGM/IGA PANEL(Performed 03/15/2019) Performed for MCTD (mixed connective tissue disease) (HCC), Encounter for therapeutic drug level monitoring * HEAVY EQUIPMENT TECHNICIAN ANTIBODY(Performed 03/15/2019) Performed for MCTD (mixed connective tissue disease) (HCC), Encounter for therapeutic drug level monitoring * CARDIAC EKG ORDER(Performed 03/04/2019) * XR CHEST 2VW(Performed 01/19/2019) Performed for Chest pain, unspecified type * URINALYSIS W/MICROSCOPIC NO CULTURE(Performed 01/19/2019) * TROPONIN I(Performed 01/19/2019) * LIPASE BLOOD(Performed 01/19/2019) * DIFFERENTIAL MANUAL(Performed 01/19/2019) * COMPREHENSIVE METABOLIC PANEL(Performed 01/19/2019) * CBC W AUTO DIFFERENTIAL(Performed 01/19/2019) * EKG 12-LEAD(Performed 01/19/2019) Performed for Chest pain, unspecified type * BREATH HYDROGEN ANALYSIS(Performed 12/03/2018) * ALDOLASE(Performed 10/01/2018) * C-REACTIVE PROTEIN(Performed 10/01/2018) * URINALYSIS W/MICROSCOPIC NO CULTURE(Performed 10/01/2018) * CK BLOOD(Performed 10/01/2018) * COMPREHENSIVE METABOLIC PANEL(Performed 10/01/2018) * ERYTHROCYTE SEDIMENTATION RATE(Performed 10/01/2018) * CBC W AUTO DIFFERENTIAL(Performed 10/01/2018) * PFT-LAB(Performed 04/20/2018) * SIX MINUTE WALK(Performed 04/20/2018) * ECHO COMPLETE(Performed 04/17/2018) Performed for NSIP (nonspecific interstitial pneumonia) (HCC), MCTD (mixed connective tissue disease) (HCC) * MRI BRAIN WWO CONTRAST(Performed 02/11/2018) Performed for Acoustic neuroma (HCC) * CREATININE BLOOD - POCT (IP) SLH(Performed 02/11/2018) Performed for Acoustic neuroma (HCC) * EARLY SJOGREN'S SYNDROME PROFILE(Performed 01/07/2018) * LUPUS ERYTHEMATOSUS PANEL(Performed 01/07/2018) * URINALYSIS W/MICROSCOPIC REFLEX TO CULTURE(Performed 01/07/2018) * TSH HI LOW REFLEX FREE T4(Performed 01/07/2018) * ERYTHROCYTE SEDIMENTATION RATE(Performed 01/07/2018) * CK BLOOD(Performed 01/07/2018) * C-REACTIVE PROTEIN(Performed 01/07/2018) * COMPREHENSIVE METABOLIC PANEL(Performed 01/07/2018) * CBC W/O DIFFERENTIAL(Performed 01/07/2018) * ALDOLASE(Performed 01/07/2018) * C-REACTIVE PROTEIN(Performed 04/17/2017) * COMPREHENSIVE METABOLIC PANEL(Performed 04/17/2017) * CBC W AUTO DIFFERENTIAL(Performed 04/17/2017) * ALDOLASE(Performed 04/17/2017) * URINALYSIS W/MICROSCOPIC REFLEX TO CULTURE(Performed 04/17/2017) * ERYTHROCYTE SEDIMENTATION RATE(Performed 04/17/2017) * CK BLOOD(Performed 04/17/2017) * COMPLETE PFT W/WO BRONCHODILATOR(Performed 04/16/2017) * BLOOD GASES ART - PFT(Performed 04/16/2017) * ECHO COMPLETE(Performed 04/16/2017) * FERRITIN(Performed 03/21/2017) * METHYLMALONIC ACID BLOOD(Performed 03/21/2017) * IRON BLOOD(Performed 03/21/2017) * LUPUS ERYTHEMATOSUS PANEL(Performed 08/16/2016) * ERYTHROCYTE SEDIMENTATION RATE(Performed 08/16/2016) * CK BLOOD(Performed 08/16/2016) * C-REACTIVE PROTEIN(Performed 08/16/2016) * COMPREHENSIVE METABOLIC PANEL(Performed 08/16/2016) * CBC W AUTO DIFFERENTIAL(Performed 08/16/2016) * ALDOLASE(Performed 08/16/2016) * XR PELVIS W BILAT HIP 2VW(Performed 07/01/2016) * XR LUMBAR SPINE 2 OR 3VW(Performed 07/01/2016) * CT CHEST WO CONT AND HIRES(Performed 04/29/2016) * COMPLETE PFT W/WO BRONCHODILATOR(Performed 03/12/2016) * ECHO COMPLETE(Performed 03/12/2016) * URINALYSIS W/MICROSCOPIC REFLEX TO CULTURE(Performed 01/31/2016) * ERYTHROCYTE SEDIMENTATION RATE(Performed 01/31/2016) * CK BLOOD(Performed 01/31/2016) * C-REACTIVE PROTEIN(Performed 01/31/2016) * COMPREHENSIVE METABOLIC PANEL(Performed 01/31/2016) * CBC W AUTO DIFFERENTIAL(Performed 01/31/2016) * ALDOLASE(Performed 01/31/2016) * XR LUMBAR SPINE 4VW OR MORE(Performed 01/30/2016) * URINALYSIS W/MICROSCOPIC REFLEX TO CULTURE(Performed 08/25/2015) * ERYTHROCYTE SEDIMENTATION RATE(Performed 08/25/2015) * CK BLOOD(Performed 08/25/2015) * C-REACTIVE PROTEIN(Performed 08/25/2015) * COMPREHENSIVE METABOLIC PANEL(Performed 08/25/2015) * CBC W AUTO DIFFERENTIAL(Performed 08/25/2015) * LDH ISOENZYMES+LDH TOTAL(Performed 08/25/2015) * ALDOLASE(Performed 08/25/2015) * CULTURE URINE REFLEXED(Performed 08/25/2015) * LUPUS ERYTHEMATOSUS PANEL(Performed 08/25/2015) * PATHOLOGY TISSUE(Performed 06/15/2015) * FL HARJIT SURGERY(Performed 06/15/2015) * COMPLETE PFT W/WO BRONCHODILATOR(Performed 04/24/2015) * LUPUS ERYTHEMATOSUS PANEL(Performed 03/15/2015) * URINALYSIS W/MICROSCOPIC REFLEX TO CULTURE(Performed 03/15/2015) * ERYTHROCYTE SEDIMENTATION RATE(Performed 03/15/2015) * CK BLOOD(Performed 03/15/2015) * C-REACTIVE PROTEIN(Performed 03/15/2015) * COMPREHENSIVE METABOLIC PANEL(Performed 03/15/2015) * CBC W AUTO DIFFERENTIAL(Performed 03/15/2015) * ALDOLASE(Performed 03/15/2015) * CULTURE URINE REFLEXED(Performed 03/15/2015) * CULTURE URINE(Performed 03/15/2015) * ECHO COMPLETE(Performed 11/16/2014) * COMPLETE PFT W/WO BRONCHODILATOR(Performed 10/17/2014) * CT CHEST WO CONT AND HIRES(Performed 10/17/2014) * METHYLMALONIC ACID BLOOD(Performed 08/05/2014) * VITAMIN B12(Performed 08/05/2014) * FERRITIN(Performed 08/05/2014) * COMPREHENSIVE METABOLIC PANEL(Performed 08/05/2014) * CBC W AUTO DIFFERENTIAL(Performed 07/22/2014) * ALDOLASE(Performed 07/22/2014) * URINALYSIS W/MICROSCOPIC REFLEX TO CULTURE(Performed 07/22/2014) * ERYTHROCYTE SEDIMENTATION RATE(Performed 07/22/2014) * CK BLOOD(Performed 07/22/2014) * C-REACTIVE PROTEIN(Performed 07/22/2014) * COMPREHENSIVE METABOLIC PANEL(Performed 07/22/2014) * COMPREHENSIVE METABOLIC PANEL(Performed 07/22/2014) * CULTURE URINE REFLEXED(Performed 07/22/2014) * XR CERVICAL SPINE 4 OR 5VW(Performed 06/21/2014) * LUZ COMPREHENSIVE PLUS PROFILE(Performed 01/05/2014) * VITAMIN D 25-HYDROXY D2+D3(Performed 01/05/2014) * HEAVY EQUIPMENT TECHNICIAN ANTIBODY(Performed 01/05/2014) * C-REACTIVE PROTEIN(Performed 01/05/2014) * ALDOLASE(Performed 01/05/2014) * COMPREHENSIVE METABOLIC PANEL(Performed 01/05/2014) * CK BLOOD(Performed 01/05/2014) * URINALYSIS W/MICROSCOPIC REFLEX TO CULTURE(Performed 01/05/2014) * TSH(Performed 01/05/2014) * ERYTHROCYTE SEDIMENTATION RATE(Performed 01/05/2014) * CBC W AUTO DIFFERENTIAL(Performed 01/05/2014) * CULTURE URINE REFLEXED(Performed 01/05/2014) * COMPLETE PFT W/WO BRONCHODILATOR(Performed 11/15/2013) * CT CHEST WO CONT AND HIRES(Performed 11/15/2013) * NM LUNG QUANT DIFF PERF ONLY(Performed 11/15/2013) * ECHO COMPLETE(Performed 11/15/2013) * HIV-1 HIV-2 ANTIBODIES W RFLX REFLEXED(Performed 09/28/2013) * C-REACTIVE PROTEIN(Performed 06/22/2013) * HEAVY EQUIPMENT TECHNICIAN ANTIBODY(Performed 06/22/2013) * ALDOLASE(Performed 06/22/2013) * COMPREHENSIVE METABOLIC PANEL(Performed 06/22/2013) * CK BLOOD(Performed 06/22/2013) * URINALYSIS W/MICROSCOPIC REFLEX TO CULTURE(Performed 06/22/2013) * ERYTHROCYTE SEDIMENTATION RATE(Performed 06/22/2013) * CBC W AUTO DIFFERENTIAL(Performed 06/22/2013) * CULTURE URINE REFLEXED(Performed 06/22/2013) * LUZ COMPREHENSIVE PLUS PROFILE(Performed 01/11/2013) * URINALYSIS W/MICROSCOPIC REFLEX TO CULTURE(Performed 01/11/2013) * ERYTHROCYTE SEDIMENTATION RATE(Performed 01/11/2013) * ALDOLASE(Performed 01/11/2013) * CK BLOOD(Performed 01/11/2013) * COMPREHENSIVE METABOLIC PANEL(Performed 01/11/2013) * C-REACTIVE PROTEIN(Performed 01/11/2013) * CBC W AUTO DIFFERENTIAL(Performed 01/11/2013) * CULTURE URINE REFLEXED(Performed 01/11/2013) * ECHO COMPLETE(Performed 12/18/2012) * LAB HISTORICAL RESULTS-ONBASE(Performed 08/18/2012) * LAB HISTORICAL RESULTS-ONBASE(Performed 05/18/2012) * PATHOLOGY/GENETICS HISTORICAL-ONBASE(Performed 04/15/2012) * LAB HISTORICAL RESULTS-ONBASE(Performed 03/20/2012) * URINALYSIS W/MICROSCOPIC NO CULTURE(Performed 03/19/2012) * CULTURE URINE(Performed 03/19/2012) * PATHOLOGY REPORTS - HPF HISTORICAL(Performed 03/19/2012) * DERMATOPATHOLOGY(Performed 03/19/2012) * DERMATOPATHOLOGY(Performed 03/19/2012) Results * COMPLETE PFT W/WO BRONCHODILATOR (05/24/2024 6:08 PM CDT) Impressions Jenni Montes MD - 05/24/2024 6:08 PM CDT [facility] DEPARTMENT OF PULMONARY, CRITICAL CARE, AND SLEEP MEDICINE PULMONARY FUNCTION TEST Please see technologist's comments mentioned in the report. INTERPRETATION: SPIROMETRY: FVC: normal FEV1: normal FEV1/FVC ratio is normal BRONCHODILATOR RESPONSE: There is no significant response to bronchodilator therapy however does not preclude from bronchodilator therapy if clinically indicated otherwise FLOW-VOLUME LOOPS: Normal flow-volume loops LUNG VOLUMES: Lung volumes by body plethysmography show normal total lung volume and normal residual volume DLCO: Unadjusted for Hb and COHb is: normal (-1.65 to 1.645) ARTERIAL BLOOD GAS ANALYSIS: not performed IMPRESSION: 1. Normal Pulmonary Function Test 2. No significant bronchodilator response, however this does not preclude the use of bronchodilators 3. Compared with previous study on 05/19/23, there is no significant change. Cathi Maya MD Pulmonary and Critical Care Fellow [facility] Pager: [phone] I have personally reviewed the fellow's interpretation of the test and made any necessary changes when needed. Jenni Montes MD Osteopathic Medicine Teacherexcellence leader Division of Pulmonary, Critical Care and Sleep Medicine [facility] [employer] Pager: [phone] Narrative Jenni Montes MD - 05/24/2024 6:08 PM CDT Cathi Maya MD 05/24/2024 9:36 PM Procedure Note Cathi Maya MD - 05/24/2024 6:08 PM CDT Images from the original note were not included. Julian Mcknight MD RESPIRATORY THE RAPY ORDERABLES * SIX MINUTE WALK (05/24/2024 6:03 PM CDT) Impressions Jenni Montes MD - 05/24/2024 6:03 PM CDT [facility] DEPARTMENT OF PULMONARY, CRITICAL CARE, AND SLEEP MEDICINE SIX MINUTE WALK TEST Ronald Rivera 05/24/2024 Interpretation: The patient walked for 6 minutes on room air and covered total distance of 270 meters. On the Alex scale at baseline, reported dyspnea was 0.5 and fatigue was 1. At the end of the study, the Alex reported dyspnea was 1 and fatigue was 1. There was no additional symptoms reported and oxygen saturation remained 100% throughout the test. IMPRESSION: 1. Total 6 minute walk distance is 270 meters, which is above the lower limit of normal of 174 meters for this patient. 2. Compared with previous study on 05/19/23, 6MWD increased by 45 meters. Cathi Maya MD Pulmonary and Critical Care Fellow [facility] Pager: [phone] I have personally reviewed the fellow's interpretation of the test and made any necessary changes when needed. Jenni Montes MD Osteopathic Medicine Teacherexcellence leader Division of Pulmonary, Critical Care and Sleep Medicine [facility] [employer] Pager: [phone] Narrative Jenni Montes MD - 05/24/2024 6:03 PM CDT Cathi Maya MD 05/24/2024 9:39 PM Procedure Note Cathi Maya MD - 05/24/2024 6:03 PM CDT Images from the original note were not included. Julian Mcknight MD RESPIRATORY THE RAPY ORDERABLES * (ABNORMAL) SCLEROSIS 12 ANTIBODY PNL (03/03/2024 9:05 AM CDT) Only the most recent of2 resultswithin the time period is included. SCL-70 <11 <11 SI [facility] Centromere protein A Antibody <11 <11 SI [facility] Centromere protein B Antibody <11 <11 SI [facility] RP11 <11 <11 SI [facility] RP11 <11 <11 SI [facility] U1 small nuclear ribonucleoprotein A Antibody 57(H) <11 SI [facility] U1 small nuclear ribonucleoprotein C Antibody <11 <11 SI [facility] U1 small nuclear ribonucleoprotein 70kD Antibody <11 <11 SI [facility] Fibrillarin <11 <11 SI [facility] TH/TO <11 <11 [facility] PM/SCL 100 <11 <11 SI [facility] PM/SCL 75 <11 <11 SI [facility] Comment: The [place] [employer] (ACR) considers anti-Scl-70 (also known as anti-topoisomerase I), anti-centromere and/or anti-RNA polymerase III antibodies part of the classification criteria for Systemic Sclerosis(SSc) given that the antibodies are present in 30%-60% of patients with SSc. Centromere protein B (CENP B) antibody positivity is found in 64-95% of patients with a limited form of cutaneous systemic sclerosis i.e. CREST syndrome. The addition of centromere protein A (CENP A) antibody to CENP B antibody improves specificity for diagnosis of SSc. Patients presenting with diffuse cutaneous systemic sclerosis (dcSSc) and features of CREST may have both centromere (A & B) antibodies and Scl-70 antibodies. RNA polymerase III antibodies target RNAP III epitopes 11 (RP11) and 155 (RP155). Anti-RP11 antibody occurs in about 10% of scleroderma patients and anti-RP155 antibodies in about 8%. Lmep-L7-gqTWG antibodies are associated with SSc and inflammatory myopathy overlap syndromes. Three major components of U1-snRNP are tested: U1-snRNP HEAVY EQUIPMENT TECHNICIAN A, U1-snRNP HEAVY EQUIPMENT TECHNICIAN C, U1-snRNP EQN69xs. The presence of U1-snRNP antibodies occur in 14% and 26% of Caucasians and Americans, respectively, in [place]. Anti-fibrillarin (anti-U3RNP) antibodies are specific for SSc, but are mutually exclusive from Scl-70, CENP, and RNAP III antibodies. Anti-U3RNP antibodies are detected in 4-10% of SSc patients, and when present are associated with dcSSc and frequently visceral renal and cardiac involvement. Fibrillarin antibodies are found more frequently in -[place] patients and when seen in this population, the antibodies are associated with severe pulmonary disease, pulmonary hypertension, severe small bowel involvement, and a poorer prognosis. Anti-Th/To antibodies are present in 1-13% of SSc patients, and are rarely found in other autoimmune diseases. Anti-Th/To antibodies are primarily associated with localized cutaneous systemic sclerosis (lcSSc). Anti-Th/To antibodies are also associated with pericarditis, interstitial lung disease and a high frequency of intrinsic pulmonary hypertension, and hence, a poorer prognosis. Autoantibodies to PM/Scl, the human exosome complex, are found in 4-11% of patients with SSc. PM/Scl antibodies have also been observed in polymyositis/SSc overlap syndromes and other autoimmune diseases. The majority of anti-PM/Scl reactivity is directed to one of two proteins: PM/Xln035 and/or PM/Scl75. More information can be found at https://www.Queplix.USB Promos/testcenter/testguide.action ?dc=CF-SystScler This test was developed and its analytical performance characteristics have been determined by [employer]. It has not been cleared or approved by FDA. This assay has been validated pursuant to the CLIA regulations and is used for clinical purposes. Test Performed at: [employer] [address] [place] [address] PADMINI ANDERSON MD,PHD,ERNIE Blood BLOOD SPECIMEN / Unknown 03/03/2024 9:05 AM CDT 03/03/2024 9:05 AM CDT Xavier Alfred MD LAB - SEROLOGY ORDER ADITYA nGAP [address] [place] [address] * (ABNORMAL) URINALYSIS W/MICROSCOPIC NO CULTURE (03/03/2024 9:05 AM CDT) Only the most recent of9 resultswithin the time period is included. Color UA DARK YELLOW YELLOW [facility] Appearance CLEAR CLEAR [facility] Specific [place] UA 1.027 1.001 - 1.035 [facility] pH UA 6.0 5.0 - 8.0 [facility] Glucose UA NEGATIVE NEGATIVE [facility] Bilirubin UA NEGATIVE NEGATIVE [facility] Ketone UA NEGATIVE NEGATIVE [facility] Blood UA NEGATIVE NEGATIVE [facility] Protein UA TRACE(A) NEGATIVE [facility] Nitrite UA NEGATIVE NEGATIVE [facility] Leukocyte UA NEGATIVE NEGATIVE [facility] WBC UA NONE SEEN < OR = 5 /HPF [facility] RBC UA 0-2 < OR = 2 /HPF [facility] Epithelial Cell UA 0-5 < OR = 5 /HPF [facility] Bacteria UA NONE SEEN NONE SEEN /HPF [facility] Hyaline Casts NONE SEEN NONE SEEN /LPF [facility] Comment: Test Performed at: [facility] [id number] [facility] [address] JACOBO PUTNAM MD Urine URINARY BLADDER CYTOLOGIC MATERIAL / Unknown 03/03/2024 9:05 AM CDT 03/03/2024 9:05 AM CDT Xavier Alfred MD LAB - URINALYSIS ORD ERABLES nGAP [address] [place] [address] * LUZ PANEL COMPREHENSIVE (03/03/2024 9:05 AM CDT) Only the most recent of4 resultswithin the time period is included. LUZ Screen NEGATIVE NEGATIVE [facility] Comment: LUZ IFA is a first line screen for detecting the presence of up to approximately 150 autoantibodies in various autoimmune diseases. A negative LUZ IFA result suggests an LUZ-associated autoimmune disease is not present at this time, but is not definitive. If there is high clinical suspicion for Sjogren's syndrome, testing for anti-SS-A/Ro antibody should be considered. Anti-Alva-1 antibody should be considered for clinically suspected inflammatory myopathies. AC-0: Negative International Consensus on LUZ Patterns (https://doi.org/10.1515/fqpp-1242-2061) For additional information, please refer to http://education.Venvy Interactive Video/faq/OYW926 (This link is being provided for informational/ educational purposes only.) Test Performed at: [facility] [place] [address] JACOBO PUTNAM MD dsDNA Antibody <1 IU/mL [facility] Comment: IU/mL Interpretation < or = 4 Negative 5-9 Indeterminate > or = 10 Positive SCL-70 Antibody <1.0 NEG <1.0 NEG AI [facility] SM Antibody <1.0 NEG <1.0 NEG AI [facility] SM/HEAVY EQUIPMENT TECHNICIAN Antibody <1.0 NEG <1.0 NEG AI [facility] Sjogren's Antibodies (SSA) <1.0 NEG <1.0 NEG AI [facility] Sjogren's Antibodies (SSB) <1.0 NEG <1.0 NEG AI [facility] Comment: Test Performed at: [place] [address] JACOBO PUTNAM MD Blood BLOOD SPECIMEN / Unknown 03/03/2024 9:05 AM CDT 03/03/2024 9:05 AM CDT Xavier Alfred MD LAB - SEROLOGY ORDER ADITYA Performing Organization Address [facility] Co de Phone Number [facility] [id number] [place] [address] * C-REACTIVE PROTEIN (03/03/2024 9:05 AM CDT) Only the most recent of20 resultswithin the time period is included. C-Reactive Protein 3.1 <8.0 mg/L [facility] Comment: Test Performed at: [facility] [place], [place] [address] JACOBO PUTNAM MD Blood BLOOD SPECIMEN / Unknown 03/03/2024 9:05 AM CDT 03/03/2024 9:05 AM CDT Xavier Alfred MD LAB - CHEMISTRY ORDSenia DE Performing Organization Address [facility] de Phone Number [facility] [id number] [place] [address] * ALDOLASE (03/03/2024 9:05 AM CDT) Only the most recent of20 resultswithin the time period is included. Aldolase 4.7 < OR = 8.1 U/L [facility] Comment: Test Performed at: [facility], [place] [address] JACOBO PUTNAM MD Blood BLOOD SPECIMEN / Unknown 03/03/2024 9:05 AM CDT 03/03/2024 9:05 AM CDT Xavier Alfred MD LAB - CHEMISTRY ERA DE Performing Organization Address [facility] Co de Phone Number [facility] [address] [place] [address] * ERYTHROCYTE SEDIMENTATION RATE (03/03/2024 9:05 AM CDT) Only the most recent of20 resultswithin the time period is included. Pathologist [facility] [place] Erythrocyte Sedimentation Rate Westergren 9 < OR = 30 mm/h [facility] Comment: Test Performed at: [email or web address] [address] JACOBO PUTNAM MD Blood BLOOD SPECIMEN / Unknown 03/03/2024 9:05 AM CDT 03/03/2024 9:05 AM CDT Xavier Alfred MD LAB - HEMATOLOGY ORD ERABLES Performing Organization Address [facility] Co de Phone Number [facility] [address] [place] [address] * (ABNORMAL) CBC W/O DIFFERENTIAL (03/03/2024 9:05 AM CDT) Only the most recent of8 resultswithin the time period is included. Pathologist [facility] White Blood Cell Count 7.6 3.8 - 10.8 Thousand/u L [facility] RBC 4.22 3.80 - 5.10 Million/uL [facility] Hemoglobin 12.2 11.7 - 15.5 g/dL [facility] Hematocrit 38.3 35.0 - 45.0 % [facility] MCV 90.8 80.0 - 100.0 fL [facility] MCH 28.9 27.0 - 33.0 pg [facility] MCHC 31.9(L) 32.0 - 36.0 g/dL [facility] RDW 14.5 11.0 - 15.0 % [facility] Platelet Count 284 140 - 400 Thousand/u L [facility] MPV 9.8 7.5 - 12.5 fL [facility] Comment: Test Performed at: [employer] [email or web address] [address] JACOBO PUTNAM MD Blood BLOOD SPECIMEN / Unknown 03/03/2024 9:05 AM CDT 03/03/2024 9:05 AM CDT Xavier Alfred MD LAB - HEMATOLOGY ORD ERABLES Performing Organization Address City/[facility] Co de Phone Number [facility] [address] [place] [address] * COMPREHENSIVE METABOLIC PANEL (03/03/2024 9:05 AM CDT) Only the most recent of23 resultswithin the time period is included. Glucose 95 65 - 99 mg/dL [facility] Comment: Fasting reference interval BUN 21 7 - 25 mg/dL [facility] Creatinine 0.84 0.60 - 1.00 mg/dL [facility] eGFR by Cystatin C 71 > OR = 60 mL/min/1. 73m2 [facility] BUN/Creatinine Ratio SEE NOTE: 6 - 22 (calc) [facility] Comment: Not Reported: BUN and Creatinine are within reference range. Sodium 142 135 - 146 mmol/L [facility] Potassium 3.9 3.5 - 5.3 mmol/L [facility] Chloride 108 98 - 110 mmol/L [facility] CO2 26 20 - 32 mmol/L [facility] Calcium 8.8 8.6 - 10.4 mg/dL [facility] Protein Total 6.4 6.1 - 8.1 g/dL [facility] Albumin 4.0 3.6 - 5.1 g/dL [facility] Globulin Total 2.4 1.9 - 3.7 g/dL (calc) [facility] Albumin/Globulin Ratio 1.7 1.0 - 2.5 (calc) [facility] Bilirubin Total 0.5 0.2 - 1.2 mg/dL [facility] Alkaline Phosphatase 90 37 - 153 U/L [facility] AST 19 10 - 35 U/L [facility] ALT 20 6 - 29 U/L [facility] Comment: Test Performed at: [facility] [place] [address] JACOBO PUTNAM MD Blood BLOOD SPECIMEN / Unknown 03/03/2024 9:05 AM CDT 03/03/2024 9:05 AM CDT Xavier Alfred MD LAB - CHEMISTRY ERA DE [facility] [address] [place] [address] * CK BLOOD (03/03/2024 9:05 AM CDT) Only the most recent of20 resultswithin the time period is included. CK 122 29 - 143 U/L [facility] Comment: Test Performed at: [employer] [place] [address] JACOBO PUTNAM MD Blood BLOOD SPECIMEN / Unknown 03/03/2024 9:05 AM CDT 03/03/2024 9:05 AM CDT Xavier Alfred MD LAB - CHEMISTRY ERA DE [facility] Organization Address City/State/ZIP Co de Phone Number [facility] [address] [place] [address] * Complete PFT w/wo Bronchodilator [facility] PFT Lab (05/19/2023 2:58 PM CDT) Impressions Sebastian Matthew MD - 05/19/2023 2:58 PM CDT [facility] DEPARTMENT OF PULMONARY, CRITICAL CARE, AND SLEEP MEDICINE PULMONARY FUNCTION TEST Please see technologist's comments mentioned in the report. INTERPRETATION: SPIROMETRY: FVC: normal. FEV1: normal. FEV1/FVC ratio is normal. BRONCHODILATOR RESPONSE: There is no significant response to bronchodilator therapy, however this does not mean the patient would not benefit from bronchodilator therapy. FLOW-VOLUME LOOPS: Inspection of the flow-volume loops shows normal flow-volume loops. LUNG VOLUMES: Lung volumes by body plethysmography show normal total lung volume and normal residual volume DIFFUSION CAPACITY DLCO: Unadjusted for Hb and COHb is normal. DLCO: Corrected for Hb and COHb is normal. IMPRESSION: 1. Normal spirometry and lung volumes. 2. Uncorrected DLCO is normal. 3. No significant bronchodilator response, however this does not preclude the use of bronchodilators. 4. Compared with previous study on 05/13/2023, there is no significant change in FEV1, FVC, TLC, and DLCO. Favio Anthony MD Pulmonary & Critical Care Fellow, PGY-4 Division of Pulmonary, Critical Care and Sleep Medicine [facility] I have personally reviewed the pulmonary function test data and made adjustment to the interpretation where necessary. Sebastian Matthew MD 05/30/2023 Narrative Sebastian Matthew MD - 05/19/2023 2:58 PM CDT Favio Anthony MD 05/19/2023 5:08 PM Devon Currie MD RESPIRATORY THERAPY ORDERABLES * Six Minute Walk Test [facility] PFT Lab (05/19/2023 2:54 PM CDT) Impressions Sebastian Matthew MD - 05/19/2023 2:54 PM CDT [facility] DEPARTMENT OF PULMONARY, CRITICAL CARE, AND SLEEP MEDICINE SIX MINUTE WALK TEST Ronald Rivera 05/19/2023 Interpretation: The patient walked for 6 minutes on room air and covered total distance of 225 meters. On the Alex scale at baseline, reported dyspnea was 3 and fatigue was 3. At the end of the study, the Alex reported dyspnea was 4 and fatigue was 3. There were no additional symptoms reported and oxygen saturation remained above 95% throughout the test. IMPRESSION: 1. Total 6 minute walk distance is 225 meters, which is above the lower limit of normal of 159 meters for this patient. 2. Compared to prior study on 04/11/2020, the patients 6 minute walk distance has decreased by 87 meters. Favio Anthony MD Pulmonary & Critical Care Fellow, PGY-4 Division of Pulmonary, Critical Care and Sleep Medicine [facility] I have personally reviewed the pulmonary function test data and made adjustment to the interpretation where necessary. Sebastian Matthew MD 05/30/2023 Narrative Sebastian Matthew MD - 05/19/2023 2:54 PM CDT Favio Anthony MD 05/19/2023 5:09 PM Devon Currie MD RESPIRATORY THERAPY ORDERABLES * HDEZ (SM)+HEAVY EQUIPMENT TECHNICIAN ANTIBODY PANEL (05/12/2023 9:34 AM CDT) Only the most recent of3 resultswithin the time period is included. SM Antibody <1.0 NEG <1.0 NEG AI [facility] SM/HEAVY EQUIPMENT TECHNICIAN Antibody <1.0 NEG <1.0 NEG AI [facility] Comment: Test Performed at: [facility] [id number] [place] [address] JACOBO PUTNAM MD 05/12/2023 9:34 AM CDT 05/12/2023 9:34 AM CDT Xavier Alfred MD LAB - SEROLOGY ORDER ADITYA [facility] [address] [place] [address] * URINALYSIS NO MICROSCOPIC NO CULTURE (05/12/2023 9:34 AM CDT) Color UA YELLOW YELLOW [facility] Appearance CLEAR CLEAR [facility] Specific [place] UA 1.014 1.001 - 1.035 [facility] pH UA 6.5 5.0 - 8.0 [facility] Glucose UA NEGATIVE NEGATIVE [facility] Bilirubin UA NEGATIVE NEGATIVE [facility] Ketone UA NEGATIVE NEGATIVE [facility] Blood UA NEGATIVE NEGATIVE [facility] Protein UA NEGATIVE NEGATIVE [facility] Nitrite UA NEGATIVE NEGATIVE [facility] Leukocyte UA NEGATIVE NEGATIVE [facility] Comment: Test Performed at: [employer] [email or web address] [address] [place] [address] JACOBO PUTNAM MD 05/12/2023 9:34 AM CDT 05/12/2023 9:34 AM CDT Xavier Alfred MD LAB - URINALYSIS ORD ERABLES [facility] [address] [place] [address] * PFT (10/09/2022) 10/09/2022 Narrative 10/09/2022 Ordered by an unspecified provider. Scanned Document SCANNING ONLY * ECHO COMPLETE (07/17/2022 11:43 AM CDT) Only the most recent of10 resultswithin the time period is included. Anatomical Region Laterality Modality Chest Echo 07/17/2022 10:5 4 AM CDT Narrative Procedure Note Lang Daniel MD - 07/18/2022 Xavier Alfred MD ECHOCARDIOGRAPHY RAD IANT * HDEZ/HEAVY EQUIPMENT TECHNICIAN (RADHA) ANTIBODY IGG (05/13/2022 2:10 PM CDT) Hdez/HEAVY EQUIPMENT TECHNICIAN (RADHA) Antibody IgG 4 0 - 19 Units 05/15/2022 4:54 AM CDT [facility] ([facility]) Comment: INTERPRETIVE INFORMATION: Hdez/HEAVY EQUIPMENT TECHNICIAN (RADHA) Antibody, IgG 19 Units or Less ............. Negative 20 to 39 Units ............... Weak Positive 40 to 80 Units ............... Moderate Positive 81 Units or greater .......... Strong Positive Hdez/HEAVY EQUIPMENT TECHNICIAN antibodies are frequently seen in patients with mixed connective tissue disease (MCTD) and are also associated with other systemic autoimmune rheumatic diseases (SARDs) such as systemic lupus erythematosus (SLE), systemic sclerosis, and myositis. Antibodies targeting the Hdez/HEAVY EQUIPMENT TECHNICIAN antigenic complex also recognize Hdez antigens, therefore, the Hdez antibody response must be considered when interpreting these results. Performed By: [facility] [address] [place] [address] Director Information: Jordan Bearden MD, PhD Blood BLOOD SPECIMEN / Unknown Lab Venipuncture / Unknown 05/13/2022 2:10 PM CDT 05/13/2022 2:44 PM CDT Xavier Alfred MD LAB - CHEMISTRY ERA DE [facility] ([facility]) [address] [place] [address], [facility] * Complete PFT [facility] PFT Lab (05/13/2022 1:51 PM CDT) Impressions Carlos Otto MD - 05/13/2022 1:51 PM CDT [facility] DEPARTMENT OF PULMONARY, CRITICAL CARE, AND SLEEP MEDICINE PULMONARY FUNCTION TEST Please see technologist's comments mentioned in the report. INTERPRETATION: SPIROMETRY: FVC: normal FEV1: normal FEV1/FVC ratio is normal. (This data is based on the best response by the patient, including pre- bronchodilator and post-bronchodilator.) BRONCHODILATOR RESPONSE: There is no response to bronchodilator administration FLOW-VOLUME LOOPS: Normal flow-volume loops LUNG VOLUMES: Lung volumes by body plethysmography showed increased RV DLCO: Unadjusted for Hb and COHb is Normal DLCO: Corrected for Hb and COHb is: Increased AIRWAY RESISTANCE: The airway resistance is normal and the specific conductance is normal ARTERIAL BLOOD GAS ANALYSIS: Not performed IMPRESSION: 1. Normal spirometry 2. Significant air trapping without hyperinflation. Normal DLCO. 3. No positive bronchodilator response, however this does not preclude the use of bronchodilators 4. Compared with previous study on 6/9/20. There was no significant change in FVC, FEV1, TLC, or DLCO. Maria Del Carmen Grajeda M.D. Division of Pulmonary, Critical Care, & Sleep Medicine [facility] I have personally reviewed pulmonary function test data and finding. I concur with fellow's note. Carlos Otto MD Narrative Carlos Otot MD - 05/13/2022 1:51 PM CDT Genie Grajeda MD 05/16/2022 2:35 PM Xavier Alfred MD RESPIRATORY THERAPY ORDERABLES * (ABNORMAL) LUZ BLOOD TITER (04/29/2022 10:08 AM CDT) Pathologist [facility] [place] LUZ 1:40(H) titer [facility] Comment: A low level LUZ titer may be present in pre-clinical autoimmune diseases and normal individuals. Reference Range <1:40 Negative 1:40-1:80 Low Antibody Level >1:80 Elevated Antibody Level LUZ Pattern Nuclear, Speckled( A) [facility] Comment: Speckled pattern is associated with mixed connective tissue disease (MCTD), systemic lupus erythematosus (SLE), Sjogren's syndrome, dermatomyositis, and systemic sclerosis/polymyositis overlap. AC-2,4,5,29: Speckled International Consensus on LUZ Patterns (https://doi.org/10.1515/imbq-5433-2234) REPORT COMMENT: FASTING:YES Test Performed at: [facility] [address] [place] [address] GINETTE WU DO,MPH 04/29/2022 10:0 8 AM CDT 04/29/2022 10:09 AM CDT Xavier Alfred MD LAB - CHEMISTRY ERA DE [facility] Organization Address City/State/ZIP Co de Phone Number [facility] [address] [place] [address] * COMPLEMENT C4 (04/29/2022 10:08 AM CDT) Only the most recent of2 resultswithin the time period is included. Pathologist [facility] [place] Complement C4 36 15 - 57 mg/dL [facility] Comment: Test Performed at: [email or web address] [address] GINETTE WU DO,MPH 04/29/2022 10:0 8 AM CDT 04/29/2022 10:09 AM CDT Xavier Alfred MD LAB - SEROLOGY ORDER ADITYA Performing Organization Address [facility] Co de Phone Number [facility] [address] [place] [address] * COMPLEMENT C3 (04/29/2022 10:08 AM CDT) Only the most recent of2 resultswithin the time period is included. Complement C3 159 83 - 193 mg/dL [facility] Comment: Test Performed at: [place] [address] GINETTE WU DO,MPH 04/29/2022 10:0 8 AM CDT 04/29/2022 10:09 AM CDT Xavier Alfred MD LAB - CHEMISTRY ORDE RABLES Performing Organization Address [facility] de Phone Number [facility] [address] [place] [address] * BASIC METABOLIC PANEL (CALCIUM TOTAL) (08/29/2020 9:48 AM CDT) Glucose 92 65 - 99 mg/dL [facility] Comment: Fasting reference interval BUN 20 7 - 25 mg/dL [facility] Creatinine 0.84 0.60 - 0.93 mg/dL [facility] Comment: For patients >49 years of age, the reference limit for Creatinine is approximately 13% higher for people identified as -[place]. eGFR by MDRD 68 > OR = 60 mL/min/1 .73m2 [facility] eGFR by MDRD 79 > OR = 60 mL/min/1 .73m2 [facility] BUN/Creatinine Ratio NOT APPLICABLE 6 - 22 (calc) [facility] Sodium 138 135 - 146 mmol/L [facility] Potassium 4.3 3.5 - 5.3 mmol/L [facility] Chloride 104 98 - 110 mmol/L [facility] CO2 26 20 - 32 mmol/L [facility] Calcium 9.3 8.6 - 10.4 mg/dL [facility] Comment: Test Performed at: [place] [address] GINETTE WU DO,MPH Blood BLOOD SPECIMEN / Unknown 08/29/2020 9:48 AM CDT 08/29/2020 9:48 AM CDT Keagan Swan MD LAB - CHEMIS TRY ORDERABLES [facility] [address] [place] [address] * AMB Ref Cardiology -CAR-UCT 1120 (05/30/2020 10:02 AM CDT) Xavier Alfred MD OUTPATIENT REFERRALS * EKG - Clinic Performed (05/30/2020 8:45 AM CDT) Estela Walters MD ECG ORDERABLES * SIX MINUTE WALK (04/11/2020 10:00 AM CDT) Impressions Emerson Bone MD - 04/11/2020 10:00 AM CDT [facility] DEPARTMENT OF PULMONARY, CRITICAL CARE, AND SLEEP MEDICINE SIX MINUTE WALK TEST Ronald Rivera 04/11/2020 Interpretation: The patient walked for 6 minutes on room air and covered total distance of 312 meters. On the Alex scale at baseline, reported dyspnea was 0 and fatigue was 1. At the end of the study, the Alex reported dyspnea was 4 and fatigue was 4. There were no additional symptoms reported and oxygen saturation remained above 99% throughout the test. IMPRESSION: 1. Total 6 minute walk distance is 312 meters, which is above the lower limit of normal of 188 meters for this patient. 2. Compared to prior study on 04/17/2018, the patients 6 minute walk distance has decreased by 101 meters. Jenni Montes MD Pulmonary & Critical Care Fellow Division of Pulmonary, Critical Care and Sleep Medicine [facility] Pager: [phone] I have personally reviewed the fellow's interpretation of the test and made any necessary changes when needed. Emerson Bone MD Osteopathic Medicine Teacher of Internal Medicine Division of Pulmonary, Critical Care and Sleep Medicine [facility] Pager: [phone] Narrative Emerson Bone MD - 04/11/2020 10:00 AM CDT Jenni Montes MD 04/11/2020 11:59 AM Procedure Note Jenni Montes MD - 04/11/2020 10:00 AM CDT Images from the original note were not included. Keagan Swan MD RESPIRATORY THERAPY ORDERABLES * COMPLETE PFT W/WO BRONCHODILATOR (04/11/2020 10:00 AM CDT) Impressions Emerson Bone MD - 04/11/2020 10:00 AM CDT [facility] DEPARTMENT OF PULMONARY, CRITICAL CARE, AND SLEEP MEDICINE PULMONARY FUNCTION TEST Please see technologist's comments mentioned in the report. INTERPRETATION: SPIROMETRY: FVC: normal FEV1: normal FEV1/FVC ratio is normal. BRONCHODILATOR RESPONSE: There is no response to bronchodilator therapy however does not mean the patient wont benefit from bronchodilator therapy. FLOW-VOLUME LOOPS: Normal flow-volume loops LUNG VOLUMES: Lung volumes by body plethysmography are within normal limits DLCO: Unadjusted for Hb and COHb is normal DLCO: Corrected for Hb is: increased AIRWAY RESISTANCE: The airway resistance is normal and the specific conductance is normal ARTERIAL BLOOD GAS ANALYSIS: not performed IMPRESSION: 1. Normal pulmonary function test. 2. No positive bronchodilator response, however this does not preclude the use of bronchodilators 3. Compared with previous study on 04/05/2019, there is no significant change in FVC, FEV1, TLC or DLCO. Jenni Montes MD Pulmonary & Critical Care Fellow Division of Pulmonary, Critical Care and Sleep Medicine [facility] Pager: [phone] I have personally reviewed the fellow's interpretation of the test and made any necessary changes when needed. Emerson Bone MD Osteopathic Medicine Teacher of Internal Medicine Division of Pulmonary, Critical Care and Sleep Medicine [facility] Pager: [phone] Narrative Emerson Bone MD - 04/11/2020 10:00 AM CDT Jenni Montes MD 04/11/2020 12:00 PM Procedure Note Jenni Montes MD - 04/11/2020 10:00 AM CDT Images from the original note were not included. Keagan Swan MD RESPIRATORY THERAPY ORDERABLES * MRI IAC WWO CONTRAST (11/29/2019 2:53 PM [employer]AWAY DRIVER) Anatomical Region Laterality Modality Head Magnetic Resonan ce 11/29/2019 2:39 PM [employer]AY [employer]IVER Impressions 11/29/2019 2:50 PM [employer]AWAY [employer]IVER IMPRESSION: Compared to prior scan performed 02/11/2018: -No substantial change in tiny enhancing lesion consistent with schwannoma in right IAC. This report was electronically signed by ELIZABETH BENTON on 11/29/2019 2:50 PM . 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 This included detailed coronal and axial imaging through the intracranial course of cranial nerves five through eight. COMPARISON: MRI IACs 02/11/2018 COMPARISON: FINDINGS: Enhancing lesion in the right IAC, a junction between middle and lateral third. This measures about 0.2 cm in maximum axial plane, similar to prior scan, although visually this has marginal decrease in size and degree of enhancement which may be attributable to slice selection (based on comparison of , which is series 10 on current study). The inner ears structures show normal T2 signal. The cerebellopontine angle cisterns are normal. Moderate burden of hyperintense T2 FLAIR signal foci in the supratentorial white matter, and mild burden in the shaka and left cerebellar hemisphere, consistent with chronic small vessel ischemic disease. No diffusion restriction to suggest recent ischemic infarct or cytotoxic edema. No intracranial mass effect. No midline shift. No change in normal ventricle sizes. Partial right mastoid effusion. Opacification of the right ethmoid air cell, and mild mucosal thickening or small mucous retention cyst in right maxillary antrum. 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 This included detailed coronal and axial imaging through the intracranial course of cranial nerves five through eight. COMPARISON: MRI IACs 02/11/2018 COMPARISON: FINDINGS: Enhancing lesion in the right IAC, a junction between middle and lateral third. This measures about 0.2 cm in maximum axial plane, similar toprior scan, although visually this has marginal decrease in size and degree of enhancement which may be attributable to slice selection (based on comparison of , which is series 10 on current study). The inner ears structures show normal T2 signal. The cerebellopontine angle cisterns are normal. Moderate burden of hyperintense T2 FLAIR signal foci in thesupratentorial white matter, and mild burden in the shaka and left cerebellarhemisphere, consistent with chronic small vessel ischemic disease. No diffusion restriction to suggest recent ischemic infarct or cytotoxic edema. No intracranial mass effect. No midline shift. No change in normal ventricle sizes. Partial right mastoid effusion. Opacification of the right ethmoid air cell, and mild mucosal thickening or small mucous retention cyst inright maxillary antrum. IMPRESSION: Compared to prior scan performed 02/11/2018: -No substantial change in tiny enhancing lesion consistent withschwannoma in right IAC. This report was electronically signed by ELIZABETH BENTON on 11/29/2019 2:50 PM . Glenn Tran MD MR ORDERABLES * (ABNORMAL) CREATININE BLOOD - POCT (IP) [facility] (11/29/2019 1:46 PM [employer]IVER) Only the most recent of2 resultswithin the time period is included. Creatinine POCT 1.43(A) 0.3 - 1.3 mg/dL [facility] eGFR POCT 38(A) 60 ml/min [facility] Blood BLOOD SPECIMEN / Unknown 11/29/2019 1:46 PM [employer] DRIVER Glenn Tran MD LAB - POINT OF CARE ORDERABLES [facility] [address] [phone] * URINALYSIS REFLEX TO MICROSCOPIC NO CULTURE (10/04/2019 10:18 AM [employer]AW[employer] DRIVER) Color UA YELLOW YELLOW [facility] Appearance CLEAR CLEAR [facility] Specific [place] UA 1.015 1.001 - 1.035 [facility] pH UA 6.0 5.0 - 8.0 [facility] Glucose UA NEGATIVE NEGATIVE [facility] Bilirubin UA NEGATIVE NEGATIVE [facility] Ketone UA NEGATIVE NEGATIVE [facility] Blood UA NEGATIVE NEGATIVE [facility] Protein UA NEGATIVE NEGATIVE [facility] Nitrite UA NEGATIVE NEGATIVE [facility] Leukocyte UA NEGATIVE NEGATIVE [facility] Comment: Test Performed at: [employer] [email or web address] [id number] [facility] [place] [address] GINETTE WU DO,MPH Urine URINE SPECIMEN OBTAINED BY CLEAN CATCH PROCEDURE / Unknown 10/04/2019 10:18 AM [employer]AWAY [employer]IVER 10/04/2019 10:19 AM [employer]AWAY DRIVER Xavier Alfred MD LAB - URINALYSIS ORD ERABLES Performing Organization Address City/State/[facility] Co de Phone Number [employer] [address] [place] [phone] * (ABNORMAL) CBC WITH DIFFERENTIAL (10/04/2019 10:18 AM [employer]ULAWAY DRIVER) Only the most recent of13 resultswithin the time period is included. Pathologist [facility] [place] White Blood Cell Count 11.1(H) 3.8 - 10.8 Thousand/ uL [facility] RBC 4.64 3.80 - 5.10 Million/u L [facility] Hemoglobin 13.5 11.7 - 15.5 g/dL [facility] Hematocrit 41.3 35.0 - 45.0 % [facility] MCV 89.0 80.0 - 100.0 fL [facility] MCH 29.1 27.0 - 33.0 pg [facility] MCHC 32.7 32.0 - 36.0 g/dL [facility] RDW 13.1 11.0 - 15.0 % [facility] Platelet Count 385 140 - 400 Thousand/ uL [facility] MPV 9.3 7.5 - 12.5 fL [facility] Neutrophil Absolute 6949 1500 - 7800 cells/uL [facility] Lymphocytes Absolute 2264 850 - 3900 cells/uL [facility] Absolute Monocytes 944 200 - 950 cells/uL [facility] Eosinophils Absolute 877(H) 15 - 500 cells/uL [facility] Basophils Absolute 67 0 - 200 cells/uL [facility] Granulocytes % 62.6 % [facility] Lymphocytes % 20.4 % [facility] Monocytes % 8.5 % [facility] Eosinophils % 7.9 % [facility] Basophils % 0.6 % [facility] Comment: Test Performed at: [facility] [address] [place] [address] JACOBO PUTNAM MD Blood BLOOD SPECIMEN / Unknown 10/04/2019 10:18 AM [employer]IVER 10/04/2019 10:19 AM [employer]AWAY DRIVER Xavier Alfred MD LAB - HEMATOLOGY ORD ERABLES [facility] [address] [place] [address] * XR WRIST RIGHT 3VW OR MORE (07/19/2019 9:44 AM CDT) Anatomical Region Laterality Modality Wrist / Hand Radiographic Anna Marie ging 07/19/2019 9:49 AM CDT Impressions 07/19/2019 9:51 AM CDT IMPRESSION: No acute fracture or dislocation identified. Dictated by Michael Velez MD (supervisor residential). Dr. BRIDGETTE Lozano have personally reviewed and interpreted this examination/study. This report was electronically signed by BRIDGETTE ALMONTE on 07/19/2019 9:51 AM . Narrative 07/19/2019 9:51 AM CDT EXAMINATION: XR WRIST RIGHT 3VW OR MORE HISTORY: carpal tunnel COMPARISON: No prior study is available for comparison. FINDINGS: The osseous structures are intact and well aligned without acute fracture or dislocation. There are degenerative changes of the first carpometacarpal joint Bone density and texture are normal. There is soft tissue swelling around the wrist. Procedure Note Bridgette Almonte DO - 07/19/2019 EXAMINATION: XR WRIST RIGHT 3VW OR MORE HISTORY: carpal tunnel COMPARISON: No prior study is available for comparison. FINDINGS: The osseous structures are intact and well aligned without acutefracture or dislocation. There are degenerative changes of the first carpometacarpal joint Bone density and texture are normal. There is soft tissue swelling around the wrist. IMPRESSION: No acute fracture or dislocation identified. Dictated by Michael Velez MD (supervisor residential). Dr. BRIDGETTE Lozano have personally reviewed and interpreted this examination/study. This report was electronically signed by BRIDGETTE ALMONTE on 07/19/2019 9:51 AM . Boris Rodas MD DIAGNOSTIC IMAGING O RDERABLES * XR WRIST LEFT 3VW OR MORE (07/19/2019 9:44 AM CDT) Anatomical Region Laterality Modality Wrist / Hand Radiographic Anna Marie ging 07/19/2019 9:44 AM CDT Impressions 07/19/2019 9:50 AM CDT IMPRESSION: No acute fracture or dislocation identified. Dictated by Michael Velez MD (supervisor residential). Dr. BRIDGETTE Lozano have personally reviewed and interpreted this examination/study. This report was electronically signed by BRIDGETTE ALMONTE on 07/19/2019 9:50 AM . Narrative 07/19/2019 9:50 AM CDT EXAMINATION: XR WRIST LEFT 3VW OR MORE HISTORY: carpal tunnel COMPARISON: No prior study is available for comparison. FINDINGS: The osseous structures are intact and well aligned without acute fracture or dislocation. There are degenerative changes of the first carpometacarpal joint. Bone density and texture are normal. There is soft tissue swelling around the wrist. Procedure Note Bridgette Almonte, - 07/19/2019 EXAMINATION: XR WRIST LEFT 3VW OR MORE HISTORY: carpal tunnel COMPARISON: No prior study is available for comparison. FINDINGS: The osseous structures are intact and well aligned without acutefracture or dislocation. There are degenerative changes of the first carpometacarpal joint. Bone density and texture are normal. There issoft tissue swelling around the wrist. IMPRESSION: No acute fracture or dislocation identified. Dictated by Michael Velez MD (supervisor residential). Dr. BRIDGETTE Lozano have personally reviewed and interpreted this examination/study. This report was electronically signed by BRIDGETTE ALMONTE on 07/19/2019 9:50 AM . Boris Rodas MD DIAGNOSTIC IMAGING O RDERABLES * IMMUNOFIXATION (04/22/2019 12:46 PM CDT) Immunofixation Serum Normal Pattern Normal Pattern 04/28/2019 2:14 PM CDT [facility] Comment: No monoclonal immunoglobulins detected by serum immunotyping. Maritza Winchester PhD, [facility] Clinical Child Care Director crawler dragline operator *The electrophoresis pattern and the interpretation have been reviewed and verified by the teaching physician. Blood BLOOD SPECIMEN / Unknown Lab Venipuncture / Unknown 04/22/2019 12:46 PM CDT 04/22/2019 1:09 PM CDT Ed Montes MD LAB - CHEMISTRY ORDE KENISHA Performing Organization Address [facility] Co de Phone Number [address] [phone] * PROTEIN ELECTROPHORESIS URINE RANDOM (04/22/2019 12:46 PM CDT) Pathologist [facility] [place] Interpretation Urine PE See Comment Normal Pattern 04/28/2019 2:19 PM CDT [facility] Comment: Urine protein electrophoresis shows a band corresponding to albumin with small amounts of other nonspecific proteinuria. No monoclonal immunoglobulins detected by urine protein electrophoresis. Maritza Winchester PhD, [facility] Clinical Child Care Director crawler dragline operator Protein Urine 12 Not Established mg/dL 04/28/2019 2:19 PM CDT [facility] Urine URINE SPECIMEN OBTAINED BY CLEAN CATCH PROCEDURE / Unknown Collection / Unknown 04/22/2019 12:46 PM CDT 04/22/2019 1:09 PM CDT Ed Montes MD LAB - URINE CHEMISTR Y ORDERABLES Performing Organization Address [facility] Co de Phone Number [address] [phone] * TISSUE TRANSGLUTAMINASE AB IGA (04/22/2019 12:46 PM CDT) TTG Antibody IgA <2 0 - 3 U/mL 04/23/2019 3:09 PM CDT [facility] ([facility]) Comment: Negative 0 - 3 Weak Positive 4 - 10 Positive >10 Tissue Transglutaminase (tTG) has been identified as the endomysial antigen. Studies have demonstr- ated that endomysial IgA antibodies have over 99% specificity for gluten sensitive enteropathy. Blood BLOOD SPECIMEN / Unknown Lab Venipuncture / Unknown 04/22/2019 12:46 PM CDT 04/22/2019 1:09 PM CDT Narrative [facility] ([facility]) - 04/23/2019 3:09 PM CDT Performed at: [facility] [address] [place], [place] [id number] Topology Teacher: Harpal Hayward PhD, Phone: [phone] Genie Winter MD LAB - SEROLOGY OR DERABLES Performing Organization Address City/[facility]/ZIP Co de Phone Number [facility] ([facility]) [address] [place] [address], [facility] * RUIZ URINE (04/22/2019 12:46 PM CDT) Immunofixation Urine Normal Pattern Normal Pattern 04/28/2019 2:23 PM CDT [facility] Comment: Urine immunofixation electrophoresis shows polyclonal IgG and IgA immunoglobulins. Urine immunofixation electrophoresis shows polyclonal kappa and lambda light chains. No monoclonal immunoglobulins detected. Maritza Winchester PhD, [facility] Clinical Child Care Director crawler dragline operator *The electrophoresis pattern and the interpretation have been reviewed and verified by the teaching physician. Urine URINE SPECIMEN OBTAINED BY CLEAN CATCH PROCEDURE / Unknown Collection / Unknown 04/22/2019 12:46 PM CDT 04/22/2019 1:09 PM CDT Ed Montes MD LAB - URINE CHEMISTR Y ORDERABLES Performing Organization Address City/[facility]/ZIP Co de Phone Number [address] [phone] * HEMOGLOBIN A1C (04/22/2019 12:46 PM CDT) Hemoglobin A1c 5.8 4.4 - 6.3 % 04/22/2019 6:47 PM CDT [facility] Estimated Average Glucose 120 mg/dL 04/22/2019 6:47 PM CDT [facility] Comment: HbA1c Interpretation: Treatment target values recommended by ADA and other clinical organizations should be used to evaluate metabolic control in patients. Treatment Target Values: Normal : < 5.7% Pre-diabetes: 5.7-6.4% Diabetes: Equal to or greater than 6.5% Reference: [place] [employer] Standards of Care in Diabetes -2014 In patients 70 years and older consider HbA1c target range of 7.0-7.5% Reference: Diabetes Mellitus in Older People: Position Statement on behalf of the International Association of Gerontology and Geriatrics (IAGG), the Diabetes Working Libertarian for Older People (EDWPOP), and the International Task Force of Experts in Diabetes. Jose E Vick et al. J [place] [employer] Directors Association. 2012 Test results diagnostic of diabetes should be repeated for confirmation. The Sebia Capillary 2 assay for the measurement of HbA1c is a National Glycohemoglobin Standardization Program (NGSP)certified method. Blood BLOOD SPECIMEN / Unknown Lab Venipuncture / Unknown 04/22/2019 12:46 PM CDT 04/22/2019 1:09 PM CDT Ed Montes MD LAB - CHEMISTRY ERA DE Performing Organization Address [facility]/ZIP Co de Phone Number [address] [phone] * (ABNORMAL) KAPPA/LAMBDA LITE CHAIN FREE PANEL (04/22/2019 12:46 PM CDT) [facility] Free Rendon Light Chains 27.8(H) 3.3 - 19.4 mg/L 04/23/2019 2:11 PM CDT [facility] ([facility]) Free Lambda Light Chains 19.7 5.7 - 26.3 mg/L 04/23/2019 2:11 PM CDT [facility] ([facility]) Rendon/Lambda Ratio 1.41 0.26 - 1.65 04/23/2019 2:11 PM CDT [facility] ([facility]) Blood BLOOD SPECIMEN / Unknown Lab Venipuncture / Unknown 04/22/2019 12:46 PM CDT 04/22/2019 1:09 PM CDT Narrative [facility] ([facility]) - 04/23/2019 2:11 PM CDT Performed at: [address] [place] [id number] Topology Teacher: Harpal Hayward PhD, Phone: [phone] Ed Montes MD LAB - CHEMISTRY ERA DE [facility] ([facility]) [address] [place] [address], [facility] * PROTEIN ELECTROPHORESIS BLOOD (04/22/2019 12:46 PM CDT) Interpretation Serum PE Normal Pattern Normal Pattern 04/28/2019 2:14 PM CDT [facility] Comment: Serum capillary electrophoresis shows characteristic bands corresponding to albumin, alpha and beta globulins and polyclonal immunoglobulins. No monoclonal immunoglobulins detected. Non-secretory myeloma (NSM) and light chain only myeloma cannot be excluded based on this result. Recommend serum free light chain measurements for complete evaluation of plasma cell disorders. Maritza Winchester PhD, [facility] Clinical Child Care Director crawler dragline operator *The electrophoresis pattern and the interpretation have been reviewed and verified by the teaching physician. Protein Total 6.8 6.0 - 8.3 g/dL 04/28/2019 2:14 PM CDT [facility] Albumin 3.8 3.3 - 5.6 g/dL 04/28/2019 2:14 PM CDT [facility] Alpha-1 Globulins 0.3 0.2 - 0.4 g/dL 04/28/2019 2:14 PM CDT [facility] Alpha-2 Globulins 0.7 0.5 - 1.0 g/dL 04/28/2019 2:14 PM CDT [facility] Beta Globulins 1.0 0.6 - 1.1 g/dL 04/28/2019 2:14 PM CDT [facility] Gamma Globulins 1.0 0.6 - 1.6 g/dL 04/28/2019 2:14 PM CDT [facility] Blood BLOOD SPECIMEN / Unknown Lab Venipuncture / Unknown 04/22/2019 12:46 PM CDT 04/22/2019 1:09 PM CDT Ed Montes MD LAB - CHEMISTRY ERA DE [facility] [address] [place] [address] * IGA BLOOD (04/22/2019 12:46 PM CDT) IgA 367 87 - 534 mg/dL 04/22/2019 6:50 PM CDT [facility] Blood BLOOD SPECIMEN / Unknown Lab Venipuncture / Unknown 04/22/2019 12:46 PM CDT 04/22/2019 1:09 PM CDT Genie Winter MD LAB - CHEMISTRY O RDERABLES [facility] [address] [place] [address] * COMPLETE PFT W/WO BRONCHODILATOR (04/15/2019 10:26 AM CDT) Impressions Seabstian Matthew MD - 04/15/2019 10:26 AM CDT [facility] DEPARTMENT OF PULMONARY, CRITICAL CARE, AND SLEEP MEDICINE PULMONARY FUNCTION TEST Please see technologist's comments mentioned in the report. INTERPRETATION: SPIROMETRY: Normal FVC. Increased FEV1. Normal FEV1/FVC ratio. BRONCHODILATOR RESPONSE: Bronchodilator test showed no significant response to bronchodilator. That does not preclude the use of bronchodilator therapy if clinically indicated. LUNG VOLUME: Total lung capacity by body plethysmography is increased Increased residual volume Low expiratory reserved volume Normal unadjusted DLCO FLOW-VOLUME LOOPS: Normal flow volume loops IMPRESSION: 1/Normal spirometry. 2/Normal unadjusted DLCO . Low expiratory reserved volume likely due to obesity. 3/There is no response to bronchodilator but that does not preclude the use of bronchodilators. Julia Bravo MD [facility] [employer] Pager: [phone] I have personally reviewed the pulmonary function test data and made adjustment to the interpretation where necessary. Sebastian Matthew MD 04/15/2019 Narrative Sebastian Matthew MD - 04/15/2019 10:26 AM CDT Julia Bravo MD 04/07/2019 6:29 PM Procedure Note Julia Bravo MD - 04/05/2019 10:05 AM CDT Images from the original note were not included. Moi Champagne MD RESPIRATORY THER APY ORDERABLES * SIX MINUTE WALK (04/15/2019 10:25 AM CDT) Impressions Sebastian Matthew MD - 04/15/2019 10:25 AM CDT [facility] DEPARTMENT OF PULMONARY, CRITICAL CARE, AND SLEEP MEDICINE SIX MINUTE WALK TEST Ronald Rivera 04/05/2019 Interpretation: The patient walked for 6 minutes on no oxygen and covered total distance of 375 meters. On the Alex scale at baseline, reported dyspnea was 1 and fatigue was 1. At the end of the study, the Alex reported dyspnea was 4 and fatigue was 5. There were left hip pain but no additional symptoms reported and oxygen saturation remained above 95% throughout the test. IMPRESSION: 1. Total 6 minute walk distance is 375 meters, which is above the lower limit of normal of 194 meters for this patient. 2. Compared to prior study, the patients 6 minute walk distance has decreased 30 meters. Julia Bravo MD Pulmonary & Critical Care Fellow Division of Pulmonary, Critical Care and Sleep Medicine [facility] Pager: [phone] I have personally reviewed the pulmonary function test data and made adjustment to the interpretation where necessary. Sebastian Matthew MD 04/15/2019 Narrative Sebastian Matthew MD - 04/15/2019 10:25 AM CDT Julia Bravo MD 04/07/2019 6:29 PM Procedure Note Julia Bravo MD - 04/05/2019 10:05 AM CDT Images from the original note were not included. Moi Champagne MD RESPIRATORY THER APY ORDERABLES * TSH REFLEX FREE T4 (03/15/2019 11:09 AM CDT) TSH with Reflex FT4 1.57 0.40 - 4.50 mIU/L [facility] Comment: Test Performed at: [employer] [id number] [place] [address] GINETTE WU DO,MPH Blood BLOOD SPECIMEN / Unknown 03/15/2019 11:09 AM CDT 03/15/2019 11:10 AM CDT Xavier Alfred MD LAB - CHEMISTRY ERA DE [facility] Organization Address City/State/ZIP Co de Phone Number [employer] [address] [place] [address] * (ABNORMAL) HEAVY EQUIPMENT TECHNICIAN ANTIBODY (03/15/2019 11:09 AM CDT) Only the most recent of3 resultswithin the time period is included. HEAVY EQUIPMENT TECHNICIAN Antibody >8.0 POS(A) <1.0 NEG AI [facility] Comment: Test Performed at: [employer] [place] [id number] [employer] [address] GINETTE WU DO,MPH Blood BLOOD SPECIMEN / Unknown 03/15/2019 11:09 AM CDT 03/15/2019 11:10 AM CDT Xavier Alfred MD LAB - CHEMISTRY ERA DE Performing Organization Address City/[facility] Co de Phone Number [facility] [phone] [place] [address] * IMMUNOGLOBULINS IGG/IGM/IGA PANEL (03/15/2019 11:09 AM CDT) Pathologist [facility] [place] IgA 375 81 - 463 mg/dL [facility] IgG 1170 694 - 1618 mg/dL [facility] IgM 57 48 - 271 mg/dL [facility] Comment: Test Performed at: [employer] [place] [id number] [employer] [address] GINETTE WU DO,MPH Blood BLOOD SPECIMEN / Unknown 03/15/2019 11:09 AM CDT 03/15/2019 11:10 AM CDT Xavier Alfred MD LAB - CHEMISTRY ERA DE Performing Organization Address City/[facility] Co de Phone Number [facility] [address] [place] [phone] * CARDIAC EKG ORDER (03/04/2019 3:45 PM CDT) Narrative 03/04/2019 3:45 PM CDT Ordered by an unspecified provider. Scanned Document CARDIAC SERVICES ORD ERABLES * XR CHEST 2VW (01/19/2019 5:21 PM CDT) Anatomical Region Laterality Modality Chest Radiographic Anna Marie ging 01/20/2019 6:45 AM CDT Impressions 01/20/2019 6:46 AM CDT Findings/impression: Bibasilar atelectasis. No focal consolidation, pleural effusion, or pneumothorax. Obscuration of the medial aspect of the bilateral hemidiaphragms represents a epicardial fat-pad when compared with prior CT. The cardiac chambers are unremarkable. Bony structures are intact. This report was electronically signed by BRIDGETTE ALMONTE on 01/20/2019 6:46 AM . Narrative 01/20/2019 6:46 AM CDT EXAMINATION: XR CHEST 2VW HISTORY: chest pain FINDINGS: Chest CT dated 04/29/2016 Procedure Note Bridgette Almonte DO - 01/20/2019 EXAMINATION: XR CHEST 2VW HISTORY: chest pain FINDINGS: Chest CT dated 04/29/2016 Findings/impression: Bibasilar atelectasis. No focal consolidation, pleural effusion, or pneumothorax. Obscuration of the medial aspect of the bilateral hemidiaphragms represents a epicardial fat-pad when compared with prior CT. The cardiac chambers are unremarkable. Bony structures are intact. This report was electronically signed by BRIDGETTE ALMONTE on 01/20/2019 6:46 AM . Ifrah Coyne PA-C DIAGNOSTIC IMAGING ORDERABLES * TROPONIN I (01/19/2019 4:25 PM CDT) Troponin I <0.010 <0.032 ng/mL 01/19/2019 4:55 PM CDT [facility] Blood BLOOD SPECIMEN / Unknown Venipuncture / Unknown 01/19/2019 4:25 PM CDT 01/19/2019 4:27 PM CDT Ifrah Coyne PA-C LAB - CHEMI STRY ORDERABLES [address] [phone] * LIPASE BLOOD (01/19/2019 4:25 PM CDT) Lipase 13 8 - 78 Units/L 01/19/2019 4:49 PM CDT [facility] Blood BLOOD SPECIMEN / Unknown Venipuncture / Unknown 01/19/2019 4:25 PM CDT 01/19/2019 4:27 PM CDT Ifrah Coyne PA-C LAB - CHEMI STRY ORDERABLES [facility] [address] [place] [address], [facility] [phone] * (ABNORMAL) DIFFERENTIAL MANUAL (01/19/2019 3:38 PM CDT) WBC (corrected for NRBC) 14.2 10 3/uL 01/19/2019 4:16 PM [facility] Total Cell Count 100 01/19/2019 4:16 PM [facility] Neutrophils Absolute Manual 9.66(H) 1.60 - 7.00 10 3/uL 01/19/2019 4:16 PM [facility] Comment:(BANDS+SEGS) x WBC = NEUT # (ANC) Lymphocyte Absolute Manual 1.85 0.80 - 2.90 10 3/uL 01/19/2019 4:16 PM [facility] Monocytes Absolute Manual 1.42(H) 0.14 - 0.66 10 3/uL 01/19/2019 4:16 PM [facility] Eosinophils Absolute Manual 1.28(H) 0.00 - 0.22 10 3/uL 01/19/2019 4:16 PM [facility] Neutrophil % Manual 68(H) 30 - 60 % 01/19/2019 4:16 PM [facility] Lymphocyte % Manual 13(L) 20 - 45 % 01/19/2019 4:16 PM [facility] Monocytes % Manual 10 2 - 10 % 01/19/2019 4:16 PM [facility] Eosinophils % Manual 9(H) 1 - 6 % 01/19/2019 4:16 PM [facility] Platelet Estimate Adequate Adequate 01/19/2019 4:16 PM [facility] RBC Morphology Normal 01/19/2019 4:16 PM [facility] Blood BLOOD SPECIMEN / Unknown Venipuncture / Unknown 01/19/2019 3:38 PM CDT 01/19/2019 3:47 PM CDT Ifrah Coyne PA-C LAB - HEMAT OLOGY ORDERABLES Performing Organization Address City/[facility]/ZIP Co de Phone Number [facility] [address] [phone] * EKG 12-LEAD (01/19/2019 3:23 PM CDT) Ventricular Rate 95 BPM [facility] MUSE Atrial Rate 95 BPM [facility] MUSE P-R Interval 202 ms [facility] MUSE QRS Duration ms 82 ms [facility] MUSE Q-T Interval ms 360 ms [facility] MUSE QTC Calculation (Bezet) 452 ms [facility] Calculated P [place] 49 degrees [facility] MUSE Calculated R [place] 13 degrees [facility] Calculated T [place] 33 degrees [facility] MUSE Interpretation EKG NORMAL SINUS RHYTHM NORMAL ECG NO PREVIOUS ECGS AVAILABLE Confirmed by Dejuan DURHAM, CRISS ([id number]), material expeditor JENNIFER LEHMAN ([id number]) on 02/12/2019 2:27:34 PM [facility] MUSE 01/19/2019 3:23 PM CDT 02/12/2019 2:27 PM CDT Ifrah Coyne PA-C ECG ORDERAB LES Performing Organization Address [facility] Co de Phone Number [facility] M[facility] * BREATH HYDROGEN ANALYSIS (12/03/2018 12:56 PM [employer]AW[employer] DR[employer]) Narrative Aleksander Jack RCP - 12/03/2018 12:56 PM [employer]AWAY DRIVER Aleksander Jack RCP 11/23/2021 9:12 AM Genie Winter MD PFT ORDERABLES * COMPLETE PFT (04/20/2018 1:57 AM CDT) Impressions Ghulam Vazquez MD - 04/20/2018 1:57 AM CDT [facility] DEPARTMENT OF PULMONARY, CRITICAL CARE, AND SLEEP MEDICINE PULMONARY FUNCTION TEST Please see technologist's comments mentioned in the report. INTERPRETATION: SPIROMETRY: FVC: normal FEV1: normal FEV1/FVC ratio is normal. BRONCHODILATOR RESPONSE: There is no response to bronchodilator therapy however does not mean the patient wont benefit from bronchodilator therapy FLOW-VOLUME LOOPS: Normal flow-volume loops LUNG VOLUMES: Lung volumes by body plethysmography are within normal limits DLCO: Unadjusted for Hb and COHb is normal DLCO: Corrected for Hb and COHb is: not able to perform AIRWAY RESISTANCE: The airway resistance is normal and the specific conductance is normal ARTERIAL BLOOD GAS ANALYSIS: not performed IMPRESSION: 1. Normal Pulmonary Function Test 2. Normal lung volumes, normal DLCO, unadjusted. 3. No positive bronchodilator response, however this does not preclude the use of bronchodilators 4. Compared with previous study on 04/16/17 there is a significant decrease in FEV1 of 400mL. Terry Mccord DO Pulmonary & Critical Care Fellow Division of Pulmonary, Critical Care and Sleep Medicine [facility] Pager: [phone] ATTENDING PHYSICIAN ATTESTATION/GHULAM VAZQUEZ M.D.: I have personally reviewed and interpreted the above test and I have made the necessary changes if needed to the above interpretation. Narrative Ghulam Vazquez MD - 04/20/2018 1:57 AM CDT Julian Mccord DO 04/17/2018 4:40 PM Moi Champagne MD RESPIRATORY THER APY ORDERABLES * SIX MINUTE WALK (04/20/2018 1:56 AM CDT) Impressions Ghulam Vazquez MD - 04/20/2018 1:56 AM CDT [facility] DEPARTMENT OF PULMONARY, CRITICAL CARE, AND SLEEP MEDICINE SIX MINUTE WALK TEST Ronald Rivera 04/17/2018 Interpretation: The patient walked for 6 minutes on room air and covered total distance of 413 meters. On the Alex scale at baseline, reported dyspnea was 1 and fatigue was 3. At the end of the study, the Alex reported dyspnea was 4 and fatigue was 3. There was also hip pain reported and oxygen saturation remained above 95% throughout the test. IMPRESSION: 1. Total 6 minute walk distance is 413 meters, which is above the lower limit of normal of 207 meters for this patient. 2. Compared to prior study on 05/16/14, the patients 6 minute walk distance has decreased 7 meters. Terry Mccord DO Pulmonary & Critical Care Fellow Division of Pulmonary, Critical Care and Sleep Medicine [facility] Pager: [phone] ATTENDING PHYSICIAN ATTESTATION/GHULAM VAZQUEZ M.D.: I have personally reviewed and interpreted the above test and I have made the necessary changes if needed to the above interpretation. Narrative Ghulam Vazquez MD - 04/20/2018 1:56 AM CDT Julian Mccord DO 04/17/2018 4:41 PM Moi Champagne MD RESPIRATORY THER APY ORDERABLES * MRI BRAIN WWO CONTRAST (02/11/2018 2:02 PM CDT) Anatomical Region Laterality Modality Head Magnetic Resonan ce 02/11/2018 2:25 PM CDT Impressions 02/11/2018 4:38 PM CDT IMPRESSION: 1. 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 This report was approved by Martin Alfredo on 02/11/2018 4:16 PM . I, Dr. TUTU SZYMANSKI have personally reviewed and interpreted this examination/study. This report was electronically signed by TUTU SZYMANSKI on 02/11/2018 4:38 PM . Narrative 02/11/2018 4:38 PM CDT EXAMINATION: Magnetic resonance imaging (MRI) of the brain without and with contrast HISTORY: Right vestibular schwannoma TECHNIQUE: MRI of the brain was performed prior to and following the uneventful administration of 20 mL MultiHance intravenous gadolinium contrast according to a dedicated internal auditory canal (IAC) protocol. This included detailed coronal and axial imaging through the intracranial course of cranial nerves five through eight. FINDINGS: Comparison is made with an [facility] MRI of the internal auditory canal dated 06/06/2017. The cerebellopontine angles appear normal. The left internal auditory canal appears normal. There is an enhancing 2 mm lesion along the course of the right cranial nerve 7/8 complex within the internal auditory canal, consistent with a vestibular schwannoma. The internal auditory canal is not dilated. The signal within the bony labyrinth appears normal on both sides. Small volume of fluid is present within the right mastoid air cells. Periventricular and subcortical white matter FLAIR hyperintensities likely represent sequelae of chronic small vessel disease. There is age-appropriate mild cerebral volume loss. The ventricles are nondilated. The posterior fossa and brainstem appear normal. The patient is status post bilateral cataract extractions. Procedure Note Tutu Szymanski MD - 02/11/2018 EXAMINATION: Magnetic resonance imaging (MRI) of the brain without and with contrast HISTORY: Right vestibular schwannoma TECHNIQUE: MRI of the brain was performed prior to and following the uneventful administration of 20 mL MultiHance intravenous gadolinium contrast according to a dedicated internal auditory canal (IAC)protocol. This included detailed coronal and axial imaging through theintracranial course of cranial nerves five through eight. FINDINGS: Comparison is made with an [facility] MRI of theinternal auditory canal dated 06/06/2017. The cerebellopontine angles appear normal. The left internal auditory canal appears normal. There is an enhancing 2 mm lesion along the course of the right cranial nerve 7/8 complex within the internal auditorycanal, consistent with a vestibular schwannoma. The internal auditory canal is not dilated. The signal within the bony labyrinth appears normal on both sides. Small volume of fluid is present within the right mastoid air cells. Periventricular and subcortical white matter FLAIR hyperintensitieslikely represent sequelae of chronic small vessel disease. There is age-appropriate mild cerebral volume loss. The ventricles arenondilated. The posterior fossa and brainstem appear normal. The patient is status post bilateral cataract extractions. IMPRESSION: 1. 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 This report was approved by Martin Alfredo on 02/11/2018 4:16 PM . I, Dr. TUTU SZYMANSKI have personally reviewed and interpreted this examination/study. This report was electronically signed by TUTU SZYMANSKI on 02/11/2018 4:38 PM . Glenn Tran MD MR ORDERABLES * (ABNORMAL) EARLY SJOGREN'S SYNDROME PROFILE (01/07/2018 8:10 AM [employer]ULAWAY DRIVER) Salivary Protein 1 Antibody IgG 34.1(H) EU/ml [facility] ([facility]) Comment: Reference Range: Negative: <20 EU/ml Positive: =>20 EU/ml Salivary Protein 1 Antibody IgA 15.4 EU/ml [facility] ([facility]) Comment: Reference Range: Negative: <20 EU/ml Positive: =>20 EU/ml Salivary Protein 1 Antibody IgM 2.1 EU/ml [facility] ([facility]) Comment: Reference Range: Negative: <20 EU/ml Positive: =>20 EU/ml Carbonic Anhydrase Antibody IgG 9.2 EU/ml [facility] ([facility]) Comment: Reference Range: Negative: <20 EU/ml Positive: =>20 EU/ml Carbonic Anhydrase Antibody IgA 9.5 EU/ml [facility] ([facility]) Comment: Reference Range: Negative: <20 EU/ml Positive: =>20 EU/ml Carbonic Anhydrase Antibody IgM 12.9 EU/ml [facility] ([facility]) Comment: Reference Range: Negative: <20 EU/ml Positive: =>20 EU/ml Parotid Spec Protein Antibody IgG 1.7 EU/ml [facility] ([facility]) Comment: Reference Range: Negative: <20 EU/ml Positive: =>20 EU/ml Parotid Spec Protein Antibody IgA 7.8 EU/ml [facility] ([facility]) Comment: Reference Range: Negative: <20 EU/ml Positive: =>20 EU/ml Parotid Spec Protein Antibody IgM 5.1 EU/ml [facility] ([facility]) Comment: Reference Range: Negative: <20 EU/ml Positive: =>20 EU/ml See Note See Below [facility] ([facility]) Comment: The novel antibodies salivary gland protein 1 (SP-1), carbonic anhydrase 6 (CA ) and parotid secretory protein (PSP) have shown to be present in animal models for Sjogren's syndrome (SS) and patients with the disease. The antibodies SP-1, CA and PSP occurred earlier in the course of the disease than antibodies to Ro or La. These antibodies were found in 45% of patients meeting the criteria for SS who lacked antibodies to Ro or La. Furthermore, in patients with idiopathic xerostomia and xerophthalmia for less than 2 years, 76% had antibodies to SP-1 and/or CA while only 31% had antibodies to Ro or La. Antibodies to SP-1, CA and PSP may be useful markers for identifying patients with SS at early stages of the disease or those that lack antibodies to either Ro or La. The presence of the antibodies to SP-1, CA and PSP should be correlated with clinical (dry mouth, dry eyes), serological (Ro, La, LUZ, RF) and histological (positive lymphocytic focus scores) findings in establishing a definitive diagnosis for SS. María Tracey. et al. (2010). A role of lymphotxin in primary sjogren's syndrome. J Immunol; 185: 8416-5129. María Tracey. et al. (2012). Novel autoantibodies in Sjogren's syndrome. Clinical Immunology; 145, 251-255. *This test has been developed and performance parameters have been validated by [employer] This test has not been approved by the U.S. Food and Drug Administration (FDA); however, US FDA approval is not required for clinical use. It is not intended that clincal diagnosis and patient management decisions be made using these results alone. This test has been validated using serum samples. The belt brander has not determined the efficacy of this test when performed on CSF, plasma, joint or pleural fluid specimens. The performance characteristics of this test were determined by [employer] Test Performed at: [facility] [address] [place] [address] DR. LUCY JETT 01/07/2018 8:10 AM [employer]ULAWAY DRIVER 01/07/2018 8:13 AM AUTO HAULAWAY DRIVER Xavier Alfred MD LAB - SEROLOGY ORDER ADITYA [facility] ([facility]) [address] * (ABNORMAL) URINALYSIS W/MICROSCOPIC REFLEX TO CULTURE (01/07/2018 8:10 AM AUT[employer] HAULAWAY DRIVER) Only the most recent of9 resultswithin the time period is included. Color UA YELLOW YELLOW [facility] ([facility]) Appearance CLEAR CLEAR [facility] ([facility]) Specific [place] UA 1.011 1.001 - 1.035 [facility] ([facility]) pH Urine 6.5 5.0 - 8.0 [facility] ([facility]) Glucose UA NEGATIVE NEGATIVE [facility] ([facility]) Bilirubin UA NEGATIVE NEGATIVE [facility] ([facility]) Ketone UA NEGATIVE NEGATIVE [facility] ([facility]) Blood UA NEGATIVE NEGATIVE [facility] ([facility]) Protein UA NEGATIVE NEGATIVE [facility] ([facility]) Nitrite UA NEGATIVE NEGATIVE [facility] ([facility]) Leukocyte Esterase TRACE(A) NEGATIVE [facility] ([facility]) WBC Urine NONE SEEN < OR = 5 /HPF [facility] ([facility]) RBC Urine NONE SEEN < OR = 2 /HPF [facility] ([facility]) Squamous Epithelial Cells UA NONE SEEN < OR = 5 /HPF [facility] ([facility]) Bacteria UA NONE SEEN NONE SEEN /HPF [facility] ([facility]) Hyaline Casts UA NONE SEEN NONE SEEN /LPF [facility] ([facility]) Culture Urine Comprehensive CULTURE INDICATED - RESULTS TO FOLLOW [facility] ([facility]) Urine Culture Routine SEE NOTE [facility] ([facility]) Comment: CULTURE, URINE, ROUTINE MICRO NUMBER: [id number] TEST STATUS: FINAL SPECIMEN SOURCE: URINE SPECIMEN QUALITY: ADEQUATE RESULT: Multiple organisms present, each less than 10,000 CFU/mL. These organisms, commonly found on external and internal genitalia, are considered to be colonizers. No further testing performed. Test Performed at: [facility] [id number] [place] [address] GINETTE WU DO,MPH Urine specimen (specimen) 01/07/2018 8:10 AM [employer] HAULAWAY DRIVER 01/07/2018 8:13 AM AUTO HAULAWAY DRIVER Narrative [facility] ([facility]) - 01/26/2018 7:00 PM CDT Specimen Type->Urine Xavier Alfred MD LAB - URINALYSIS ORD ERABLES [facility] ([facility]) [address] * (ABNORMAL) LUPUS ERYTHEMATOSUS PANEL (01/07/2018 8:10 AM AUTO HAULAWAY DRIVER) Only the most recent of4 resultswithin the time period is included. LUZ Screen NEGATIVE NEGATIVE [facility] ([facility]) Comment: LUZ IFA is a first line screen for detecting the presence of up to approximately 150 autoantibodies in various autoimmune diseases. A negative LUZ IFA result suggests LUZ-associated autoimmune diseases are not present at this time. Visit Physician FAQs for interpretation of all antibodies in the [place], prevalence, and association with diseases at http://education.Adbrain.com/ faq/BSI319 dsDNA Antibody <1 IU/mL [facility] ([facility]) Comment: IU/mL Interpretation < or = 4 Negative 5-9 Indeterminate > or = 10 Positive Sjogren's Antibodies (SSA) <1.0 NEG <1.0 NEG AI [facility] ([facility]) Sjogren's Antibodies (SSB) <1.0 NEG <1.0 NEG AI [facility] ([facility]) RADHA Hdez (SM) Antibody <1.0 NEG <1.0 NEG AI [facility] ([facility]) RADHA HEAVY EQUIPMENT TECHNICIAN Antibody >8.0 POS(A) <1.0 NEG AI [facility] ( [facility]) Chromatin Nucleosomal <1.0 NEG <1.0 NEG AI [facility] ([facility]) Complement C3 151 83 - 193 mg/dL [facility] ([facility]) Complement C4 34 15 - 57 mg/dL [facility] ([facility]) Complement Total CH50 >60(H) 31 - 60 U/mL [facility] ([facility]) Comment: Test Performed at: [facility] [id number] TechnologiesBRECK[email or web address] [address] GINETTE WU DO,MPH 01/07/2018 8:10 AM [employer]ULAWAY DRIVER 01/07/2018 8:13 AM AUTO HAULAWAY DRIVER Xavier Alfred MD LAB - SEROLOGY ORDER ADITYA Performing Organization Address City/[facility]/ZIP Co de Phone Number [facility] ([facility]) [id number] [place] [address] * TSH HI LOW REFLEX FREE T4 (01/07/2018 8:10 AM AUTO HAULAWAY DRIVER) TSH 2.15 0.40 - 4.50 mIU/L [facility] ([facility]) Comment: Test Performed at: [facility] [id number] [email or web address] [address] GINETTE WU DO,MPH 01/07/2018 8:10 AM AUTO HAULAWAY DRIVER 01/07/2018 8:13 AM AUTO HAULAWAY DRIVER Xavier Alfred MD LAB - CHEMISTRY ORDE RABGIOVANNY [facility] ([facility]) [address] * COMPLETE PFT W/WO BRONCHODILATOR (04/16/2017 12:25 PM CDT) Impressions [facility] - 04/16/2017 12:25 PM CDT [facility] DEPARTMENT OF PULMONARY, CRITICAL CARE, AND SLEEP MEDICINE PULMONARY FUNCTION TESTS Ronald María Miguel 04/16/2017 INTERPRETATION Please see technologist's comments mentioned above. SPIROMETRY: Forced vital capacity is normal. FEV1 is normal. FEV1/FVC ratio is normal. There is no significant response to bronchodilator administration. The inspection of the patient's flow-volume loops shows normal configuration of the inspiratory and expiratory limbs. LUNG VOLUMES: Lung volumes by body plethysmography shows normal TLC and increased RV. Decreased ERV. DLCO: Diffusing capacity adjusted for Hb and COHb is within normal limits. AIRWAY RESISTANCE: The airway resistance and the specific conductance are normal. ARTERIAL BLOOD GAS ANALYSIS: ABG drawn on RA revealed normal oxygenation and normal acid-base balance. IMPRESSION: 1. Normal spirometry. 2. There is no significant response to bronchodilator administration. This does not preclude the use of bronchodilator therapy if clinically indicated. 3. Moderate air trapping without hyperinflation. 4. There is a significant decreased in expiratory reserve volume due to obesity. 5. ABG drawn on room air revealed normal oxygenation and acid base balance. 6. Compared to the study dated 03/12/2016, there is no significant change in FVC, FEV1, TLC, or DLCO. Mario Hernandez MD I have personally reviewed the test and revised the interpretation. Landry Simon M.D., [facility] Narrative Procedure Note Provider, MD Fabricio - 04/10/2018 IMPRESSION [facility] DEPARTMENT OF PULMONARY, CRITICAL CARE, AND SLEEP MEDICINE PULMONARY FUNCTION TESTS Ronald María Miguel 04/16/2017 INTERPRETATION Please see technologist's comments mentioned above. SPIROMETRY: Forced vital capacity is normal. FEV1 is normal. FEV1/FVC ratio is normal. There is no significant response to bronchodilator administration. The inspection of the patient's flow-volume loops shows normalconfiguration of the inspiratory and expiratory limbs. LUNG VOLUMES: Lung volumes by body plethysmography shows normal TLC andincreased RV. Decreased ERV. DLCO: Diffusing capacity adjusted for Hb and COHb is within normallimits. AIRWAY RESISTANCE: The airway resistance and the specific conductance arenormal. ARTERIAL BLOOD GAS ANALYSIS: ABG drawn on RA revealed normal oxygenationand normal acid-base balance. IMPRESSION: 1. Normal spirometry. 2. There is no significant response to bronchodilator administration.This does not preclude the use of bronchodilator therapy if clinicallyindicated. 3. Moderate air trapping without hyperinflation. 4. There is a significant decreased in expiratory reserve volume due toobesity. 5. ABG drawn on room air revealed normal oxygenation and acid basebalance. 6. Compared to the study dated 03/12/2016, there is no significant changein FVC, FEV1, TLC, or DLCO. Mario Hernandez MD I have personally reviewed the test and revised the interpretation. Landry Simon M.D., [facility] Ryan Red MD RESPIRATORY THERAPY ORDERABLES Performing Organization Address City/[facility]/ZIP Co de Phone Number [facility] * (ABNORMAL) BLOOD GASES ART - PFT (04/16/2017 10:08 AM CDT) pH Arterial 7.42 7.35 - 7.45 [facility] pCO2 Arterial 36 35 - 45 mmHg [facility] pO2 Arterial 67(L) 71 - 95 mmHg [facility] HCO3 Arterial 22.7 22.0 - 26.0 mmol/L [facility] TCO2 Arterial 23.7(L) 25.0 - 29.0 mmol/L [facility] Base Excess Arterial -0.9 -2.0 - 2.0 mmol/L [facility] Hemoglobin Arterial 12.8 12.0 - 15.5 g/dL [facility] Oxyhemoglobin Arterial 94.4(L) 95.0 - 100.0 % [facility] Carboxyhemoglobin 1.6 0.0 - 3.0 % [facility] Methemoglobin 0.0 0.0 - 2.0 % [facility] FI O2 Arterial 21.0 % [facility] Blood specimen (specimen) (Blood Line - Arterial) 04/16/2017 10:08 AM CDT 04/16/2017 10:41 AM CDT Narrative [facility] - 04/16/2017 10:42 AM CDT FiO2->21 Ryan Red MD LAB - BLOOD GASES O RDERABLES Performing Organization Address City/[facility]/ZIP Co de Phone Number [address] [phone] * METHYLMALONIC ACID BLOOD (03/21/2017 10:16 AM CDT) Only the most recent of2 resultswithin the time period is included. Methylmalonic Acid 278 87 - 318 nmol/L [facility] Comment: Test Performed at: [employer]/[address] [address] EUFEMIA SENIOR MD,PHD Blood specimen (specimen) BLOOD SPECIMEN / Unknown 03/21/2017 10:16 AM CDT 03/21/2017 10:17 AM CDT Nita A Dettenmeier AP-[employer] TECHNICIAN LAB - CH EMISTRY ORDERABLES Performing Organization Address [facility]/ZIP Co de Phone Number [facility] * IRON BLOOD (03/21/2017 10:16 AM CDT) Iron 84 45 - 160 mcg/dL [facility] Comment: Test Performed at: [facility] [id number] [facility] [address] GINETTE WU DO,MPH Blood specimen (specimen) BLOOD SPECIMEN / Unknown 03/21/2017 10:16 AM CDT 03/21/2017 10:17 AM CDT Nita A Dettendcier [facility]-[employer] TECHNICIAN LAB - CH EMISTRY ORDERABLES Performing Organization Address [facility] de Phone Number [facility] * FERRITIN (03/21/2017 10:16 AM CDT) Only the most recent of2 resultswithin the time period is included. Ferritin 61 20 - 288 ng/mL [facility] Comment: REPORT COMMENT: FASTING:YES Test Performed at: [facility] [id number] [employer] [id number] GINETTE WU DO,MPH Blood specimen (specimen) BLOOD SPECIMEN / Unknown 03/21/2017 10:16 AM CDT 03/21/2017 10:17 AM CDT Nita A Dettenmeier [facility]-[employer] TECHNICIAN LAB - CH EMISTRY ORDERABLES Performing Organization Address [facility]/ZIP Co de Phone Number [facility] * XR PELVIS W BILAT HIP 2VW (07/01/2016 1:46 PM CDT) Anatomical Region Laterality Modality Pelvis, Lower Extremity Other Impressions 07/02/2016 8:18 AM CDT IMPRESSION: 1. Status post right hip arthroplasty without evidence of failure. 2. Minimal left hip degenerative change. Dictated by Zach Leone MD (supervisor residential). This report was approved by Zach Leone on 07/02/2016 8:07 AM . IDr. TREVON MD have personally reviewed and interpreted this examination/study. This report was electronically signed by TREVON SAWANT MD on 07/02/2016 8:18 AM . Narrative 07/02/2016 8:18 AM CDT EXAMINATION: XR HIPS BILAT 3-4 VW W/ PELVIS HISTORY: Back and right hip pain, right total hip arthroplasty in 2011 COMPARISON: No prior study is available for comparison. FINDINGS: The patient is status post right hip arthroplasty. The instrumentation appears intact and well aligned without evidence of loosening. No acute fracture or dislocation is identified. Mild enthesophyte formation is noted at the left greater trochanter. The left hip joint space is normal. There is mild degenerative sclerosis in the left acetabular roof. The pubic symphysis is intact. The osseous architecture and density are otherwise normal. The sacroiliac joints are normal. Procedure Note Trevon Sawant MD - 01/31/2018 EXAMINATION: XR HIPS BILAT 3-4 VW W/ PELVIS HISTORY: Back and right hip pain, right total hip arthroplasty in 2011 COMPARISON: No prior study is available for comparison. FINDINGS: The patient is status post right hip arthroplasty. The instrumentationappears intact and well aligned without evidence of loosening. No acutefracture or dislocation is identified. Mild enthesophyte formation isnoted at the left greater trochanter. The left hip joint space is normal. There is mild degenerative sclerosis inthe left acetabular roof. The pubic symphysis is intact. The osseousarchitecture and density are otherwise normal. The sacroiliac joints arenormal. IMPRESSION IMPRESSION: 1. Status post right hip arthroplasty without evidence of failure. 2. Minimal left hip degenerative change. Dictated by Zach Leone MD (supervisor residential). This report was approved by Zach Leone on 07/02/2016 8:[address] TREVON Lozano MD have personally reviewed and interpreted thisexamination/study. This report was electronically signed by TREVON SAWANT MD on 07/02/20168:18 AM . Deep Ambrosio MD DIAGNOSTIC IMAGING O RDERABLES * XR LUMBAR SPINE 2 OR 3VW (07/01/2016 12:54 PM CDT) Anatomical Region Laterality Modality Spine Other Impressions 07/01/2016 2:50 PM CDT IMPRESSION: Multilevel mild to moderate degenerative disc and joint disease, most prominent at L4-5. Dictated by Zach Leone MD (supervisor residential). This report was approved by Zach Leone on 07/01/2016 2:[address] TREVON Lozano MD have personally reviewed and interpreted this examination/study. This report was electronically signed by TREVON SAWANT MD on 07/01/2016 2:50 PM . Narrative 07/01/2016 2:50 PM CDT EXAMINATION: XR SPINE LUMBAR 2 OR 3 VW HISTORY: Back pain COMPARISON: Comparison is made with a study from 01/30/2016. FINDINGS: The vertebral bodies are normally aligned. There is no acute fracture or compression deformity. The intervertebral disc spaces are maintained. Mild to moderate multilevel degenerative changes are seen in the thoracolumbar spine. Multilevel facet hypertrophy is most prominent in the lower lumbar spine. The sacroiliac joints are normal. Cholecystectomy clips are seen in the right upper abdomen. Procedure Note Trevon Sawant MD - 01/31/2018 EXAMINATION: XR SPINE LUMBAR 2 OR 3 VW HISTORY: Back pain COMPARISON: Comparison is made with a study from 01/30/2016. FINDINGS: The vertebral bodies are normally aligned. There is no acute fracture orcompression deformity. The intervertebral disc spaces are maintained. Mildto moderate multilevel degenerative changes are seen in the thoracolumbarspine. Multilevel facet hypertrophy is most prominent in the lower lumbar spine. The sacroiliacjoints are normal. Cholecystectomy clips are seen in the right upperabdomen. IMPRESSION IMPRESSION: Multilevel mild to moderate degenerative disc and joint disease, mostprominent at L4-5. Dictated by Zach Leone MD (supervisor residential). This report was approved by Zach Leone on 07/01/2016 2:[address] TREVON Lozano MD have personally reviewed and interpreted thisexamination/study. This report was electronically signed by TREVON SAWANT MD on 07/01/20162:50 PM . Deep Ambrosio MD DIAGNOSTIC IMAGING O RDERABLES * CT CHEST WO CONT AND HIRES (04/29/2016 10:23 AM CDT) Only the most recent of3 resultswithin the time period is included. Anatomical Region Laterality Modality Other Impressions 05/01/2016 2:19 PM CDT IMPRESSION: Minimal groundglass opacities and reticulation with subpleural sparing in the lower lobes, minimally increased since the prior CT chest dated 10/17/2014. 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 This report has been dictated by Sandra Davalos M.D. (Resident). IDr. KALYAN M.D. have personally reviewed and interpreted this examination/study. This report was electronically signed by KALYAN NASSAR M.D. on 05/01/2016 2:19 PM . Narrative 05/01/2016 2:19 PM CDT EXAMINATION: Computed tomography (CT) of the chest without contrast DATE: 04/29/2016 HISTORY: 70-year-old female with mixed connective tissue disease who presents with shortness of breath. TECHNIQUE: 5 mm contiguous axial images of the chest were obtained. Utilizing a high-resolution algorithm, 1 mm noncontiguous axial images of the chest were performed in inspiration and expiration. COMPARISON: CT chest with high resolution dated 10/17/2014 FINDINGS: The trachea is patent and midline. The lower lobes demonstrate minimal groundglass opacities and reticulation with subpleural sparing, minimally increased since the prior study. There is no pleural effusion or pneumothorax. No pulmonary nodules are seen. Minimal bronchiectasis in the lower lobes without bronchial wall thickening may represent mild chronic aspiration. No architectural distortion or honeycombing is visible. The expiratory images demonstrate atelectasis without significant air trapping. The heart size is normal. No pericardial effusion is present. No mediastinal, hilar, supraclavicular, or axillary lymphadenopathy is seen. Calcified mediastinal and left hilar lymph nodes are sequela of prior granulomatous disease. The right thyroid lobe demonstrates subtle heterogenous attenuation without a discrete lesion, unchanged. There is a left-sided aortic arch. The aorta and main pulmonary arteries are normal in course and caliber. Atherosclerotic calcification is visible in the imaged aorta and the coronary arteries. The remaining unenhanced vascular structures appear normal. Visualized portions of the liver, spleen, adrenals, kidneys, stomach, and bowel are normal within the limits of a noncontrast examination. The gallbladder surgically absent. The pancreas is atrophic. Bone windows demonstrate no suspicious lytic or blastic lesions. The visible osseous structures are intact. Mild degenerative changes are present in the imaged spine. Procedure Note Kalyan Nassar MD - 01/31/2018 EXAMINATION: Computed tomography (CT) of the chest without contrast DATE: 04/29/2016 HISTORY: 70-year-old female with mixed connective tissue disease whopresents with shortness of breath. TECHNIQUE: 5 mm contiguous axial images of the chest were obtained.Utilizing a high-resolution algorithm, 1 mm noncontiguous axial images ofthe chest were performed in inspiration and expiration. COMPARISON: CT chest with high resolution dated 10/17/2014 FINDINGS: The trachea is patent and midline. The lower lobes demonstrate minimal groundglass opacities and reticulationwith subpleural sparing, minimally increased since the prior study. Thereis no pleural effusion or pneumothorax. No pulmonary nodules are seen.Minimal bronchiectasis in the lower lobes without bronchial wall thickening may represent mild chronicaspiration. No architectural distortion or honeycombing is visible. Theexpiratory images demonstrate atelectasis without significant airtrapping. The heart size is normal. No pericardial effusion is present. No mediastinal, hilar, supraclavicular, or axillary lymphadenopathy isseen. Calcified mediastinal and left hilar lymph nodes are sequela ofprior granulomatous disease. The right thyroid lobe demonstrates subtle heterogenous attenuationwithout a discrete lesion, unchanged. There is a left-sided aortic arch. The aorta and main pulmonary arteriesare normal in course and caliber. Atherosclerotic calcification is visiblein the imaged aorta and the coronary arteries. The remaining unenhancedvascular structures appear normal. Visualized portions of the liver, spleen, adrenals, kidneys, stomach, andbowel are normal within the limits of a noncontrast examination. Thegallbladder surgically absent. The pancreas is atrophic. Bone windows demonstrate no suspicious lytic or blastic lesions. Thevisible osseous structures are intact. Mild degenerative changes arepresent in the imaged spine. IMPRESSION IMPRESSION: Minimal groundglass opacities and reticulation with subpleural sparing inthe lower lobes, minimally increased since the prior CT chest dated112/18/2013. 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 This report has been dictated by Sandra Davalos M.D. (Resident). I, Dr. KALYAN NASSAR M.D. have personally reviewed and interpreted thisexamination/study. This report was electronically signed by KALYAN NASSAR M.D. on05/01/2016 2:19 PM . Landry Simon MD CT ORDERABLES * COMPLETE PFT W/WO BRONCHODILATOR (03/12/2016 10:46 AM CDT) Impressions [facility] - 03/12/2016 10:46 AM CDT [facility] DEPARTMENT OF PULMONARY, CRITICAL CARE, AND SLEEP MEDICINE PULMONARY FUNCTION TESTS Ronald Rivera 03/12/2016 INTERPRETATION Please see technologist's comments mentioned above. SPIROMETRY: Forced vital capacity is normal. FEV1 is normal. FEV1/FVC ratio is normal. The inspection of the patient's flow-volume loops shows normal configuration of the inspiratory and expiratory limbs. LUNG VOLUMES: Lung volumes by body plethysmography are within normal limits. DLCO: Diffusing capacity unadjusted for Hb and COHb is within normal limits. AIRWAY RESISTANCE: The airway resistance and the specific conductance are normal. IMPRESSION: 1. Normal Pulmonary Function Test. 2. No significant response to bronchodilator administration. This does not preclude the clinical use of bronchodilators. 3. Normal unadjusted DLCO. 4. Compared to the study done 04/24/2015, there are no significant Changes in FEV1 and FVC, but the DLCO significantly decreased by 3.47 ml/min/mmHg. Salazar Gibson MD (Fellow) Division of Pulmonary, Critical Care, & Sleep Medicine [facility] Pager 03/12/2016 11:46 AM I have personally reviewed the test and agreed with the interpretation. Landry Simon M.D., [facility] Narrative Procedure Note Provider, MD Fabricio - 04/10/2018 IMPRESSION [facility] DEPARTMENT OF PULMONARY, CRITICAL CARE, AND SLEEP MEDICINE PULMONARY FUNCTION TESTS Ronald Rivera 03/12/2016 INTERPRETATION Please see technologist's comments mentioned above. SPIROMETRY: Forced vital capacity is normal. FEV1 is normal. FEV1/FVC ratio is normal. The inspection of the patient's flow-volume loops shows normal configuration of the inspiratory and expiratory limbs. LUNG VOLUMES: Lung volumes by body plethysmography are within normal limits. DLCO: Diffusing capacity unadjusted for Hb and COHb is within normal limits. AIRWAY RESISTANCE: The airway resistance and the specific conductance are normal. IMPRESSION: 1. Normal Pulmonary Function Test. 2. No significant response to bronchodilator administration. This does not preclude the clinical use of bronchodilators. 3. Normal unadjusted DLCO. 4. Compared to the study done 04/24/2015, there are no significant Changes in FEV1 and FVC, but the DLCO significantly decreased by 3.47 ml/min/mmHg. Salazar Gibson MD (Fellow) Division of Pulmonary, Critical Care, & Sleep Medicine [facility] Pager 03/12/2016 11:46 AM I have personally reviewed the test and agreed with the interpretation. Landry Simon M.D., [facility] José Smart MD RESPIRATORY THERAPY ORDERABLES [facility] * XR LUMBAR SPINE 4VW OR MORE (01/30/2016 2:55 PM CDT) Anatomical Region Laterality Modality Spine Other Impressions 01/31/2016 9:25 AM CDT Impression: Mild to moderate degenerative disc and joint disease most prominent at the L4-L5 level. Report dictated by Geeta Alexander M.D. (supervisor residential). This report was approved by Geeta Alexander M.D. on 01/31/2016 8:47 AM . I, Dr. TREVON SAWANT MD have personally reviewed and interpreted this examination/study. This report was electronically signed by TREVON SAWANT MD on 01/31/2016 9:25 AM . Narrative 01/31/2016 9:25 AM CDT Exam: XR SPINE LUMBAR 4 VW MIN Date: 01/30/2016 2:55 PM History: Pain in buttocks and radiates down right leg. Comparison: No prior studies available. Findings: 5 nonrib-bearing lumbar vertebra are seen. There is mild straightening of the normal lumbar lordosis. There is no subluxation on neutral, flexion, or extension views. There is no fracture. Vertebral body heights are maintained. Mild to moderate degenerative disc disease with decreased disc space and mild facet osteoarthritis is seen most prominently at the L4-L5 level. Cholecystectomy clips are seen in the soft tissues of the right upper quadrant. Right hip arthroplasty is partially imaged. Procedure Note Soo Flannery MD - 01/31/2018 Exam: XR SPINE LUMBAR 4 VW MIN Date: 01/30/2016 2:55 PM History: Pain in buttocks and radiates down right leg. Comparison: No prior studies available. Findings: 5 nonrib-bearing lumbar vertebra are seen. There is mild straightening ofthe normal lumbar lordosis. There is no subluxation on neutral, flexion,or extension views. There is no fracture. Vertebral body heights aremaintained. Mild to moderate degenerative disc disease with decreased disc space and mild facetosteoarthritis is seen most prominently at the L4-L5 level.Cholecystectomy clips are seen in the soft tissues of the right upperquadrant. Right hip arthroplasty is partially imaged. IMPRESSION Impression: Mild to moderate degenerative disc and joint disease most prominent at theL4-L5 level. Report dictated by Geeta Alexander M.D. (supervisor residential). This report was approved by Geeta Alexander M.D. on 01/31/2016 8:47 AM. I, Dr. TREVON SAWANT MD have personally reviewed and interpreted thisexamination/study. This report was electronically signed by TREVON SAWANT MD on 01/31/20169:25 AM . Xavier Alfred MD DIAGNOSTIC IMAGING O RDERABLES * LDH ISOENZYMES+LDH TOTAL (08/25/2015 9:58 AM CDT) LDH Total 169 120 - 250 U/L [facility] LD-1 20 19 - 38 % [facility] LD-2 34 30 - 43 % [facility] LD-3 24 16 - 26 % [facility] LD-4 10 3 - 12 % [facility] LD-5 12 3 - 14 % [facility] Comment: Interpretation of Most LD Isoenzyme Results Condition LD Isoenzyme Increased AMI 1 and 2 Acute renal cortical infarction 1 and 2 Pernicious anemia 1 Sickle cell crisis 1 and 2 Electrical and thermal burn, trauma 5 Mother carrying erythro- blastotic child 4 and 5 AMI with acute congestion of liver 1 and 5 Early hepatitis 5 (may become normal even when SGPT is still rising) Malignant lymphoma 3 and 4 (may even in- crease 2) (reflects effect of chemo- therapy) SLE 3 and 4 Dermatomyositis 5 Carcinoma of prostate 5 Pulmonary embolus and infarction 2 and 3 Pulmonary embolus with acute cor pulmonale causing acute congestion of liver 3 and 5 Test Performed at: [facility] [facility] [place] [address] [place] [address] SHELIA PRUETT MD PHD Blood specimen (specimen) BLOOD SPECIMEN / Unknown 08/25/2015 9:58 AM CDT 08/25/2015 9:58 AM CDT Xavier Alfred MD LAB - CHEMISTRY ERA DE Performing Organization Address [facility] Co de Phone Number [facility] * CULTURE URINE REFLEXED (08/25/2015 9:58 AM CDT) Only the most recent of6 resultswithin the time period is included. Pathologist [facility] [place] Culture Urine Comprehensive NO CULTURE INDICATED [facility] Comment: Test Performed at: [facility] [address] [place] [address] GINETTE WU DO,MPH 08/25/2015 9:58 AM CDT 08/25/2015 9:58 AM CDT Xavier Alfred MD LAB - MICROBIOLOGY O RDERABLES [facility] * PATHOLOGY TISSUE (06/15/2015 3:26 PM CDT) Surgical Pathology Tissue CLINICAL HISTORY: Cholelithiasis. OPERATIVE PROCEDURE: Laparoscopic cholecystectomy with IOC. FINAL DIAGNOSIS: GALLBLADDER, LAPAROSCOPIC CHOLECYSTECTOMY: - CHRONIC CHOLECYSTITIS AND CHOLITHIASIS GROSS DESCRIPTION: The specimen is received fixed in formalin in one container, labeled with the patient's name Ronald Rivera and gallbladder , and consists of a complete gallbladder specimen measuring 6.8 cm from the cystic duct to the fundus, 2.5 cm in width and 1.6 cm in diameter. The gallbladder weighs 10.3 grams. A distal portion of the cystic duct is identified and is not stapled and is inked in black. The surface of the gallbladder is sud-gewtf-krwthb and smooth. There is a defect at the fundus of the gallbladder measuring 0.3 x 0.2 cm. A portion of the gallbladder has a ragged surface consistent with the attachment at the gallbladder fossa. The specimen is opened from the neck of the gallbladder to the fundus and reveals a scant amount of yellow-green thickened material. The mucosal surface has white-yellow speckling grossly consistent with cholesterolosis. There are two szgtbf-xrf-juefv nodular stones present within the fundus of the gallbladder, ranging in size from 0.8 to 1.1 cm in greatest dimension. The gallbladder wall thickness ranges from 0.2 cm at the neck to 0.3 cm at the fundus. A portion of the fundic mucosa is thinned and dilated. A cross-section of the cystic duct, a cross-section of the neck of the gallbladder, and a cross-section of the fundus including the defect and dilated portion, are all submitted in cassette A1. DH/edk MICROSCOPIC DESCRIPTION: Review of the material reveals three sections of gallbladder tissue. There is subacute and chronic inflammation. A portion of the mucosal surface is eroded. The wall is thickened. No evidence of malignancy is seen. SB/ENEIDA/joy The performance characteristics of all immunohistochemical and indirect immunofluorescence stains (if any) cited in this report were determined by the Histopathology Laboratory of [facility]. Some of these tests were developed by our own laboratory and have not been cleared or approved by the US Food and Drug Administration. The FDA does not require this test to go through premarket FDA review. These tests are used for clinical purposes. They should not be regarded as investigational or for research. This laboratory is certified under the Clinical Laboratory Improvement Amendments (CLIA) as qualified to perform high complexity clinical laboratory testing. This case has been personally reviewed and interpreted by the attending (teaching) pathologist. Final Diagnosis performed by Senia Cortes MD. Electronically signed 06/19/2015 [facility] Other (qualifier value) 06/15/2015 3:26 PM CDT 06/16/2015 8:12 AM CDT Narrative [facility] - 06/19/2015 5:13 PM CDT PROBLEM LIST: Patient Active Problem List: MCTD (mixed connective tissue disease) AMY (obstructive sleep apnea) OA (osteoarthritis) Pain in both feet Interstitial pulmonary fibrosis Vitamin B12 deficiency Iron deficiency Encounter for therapeutic drug monitoring [place] (hard of hearing), bilateral Symptomatic cholelithiasis Cholelithiasis PRE-OP DIAGNOSIS: CHOLELITHIASIS OPERATIVE PROCEDURE / FINDINGS: Procedure(s) with comments: LAPAROSCOPIC CHOLECYSTECTOMYW/IOC - 72922 POST-OP DIAGNOSIS: * No post-op diagnosis entered * Collection Date->06/15/15 Collection Time-> 3:04 PM Specimen A->Other 1) gallbladder- perm path Live Beltre MD LAB - PATHOLOGY/CYTO LOGY ORDERABLES [facility] * FL HARJIT SURGERY (06/15/2015 2:46 PM CDT) Anatomical Region Laterality Modality Other Narrative 06/15/2015 2:46 PM CDT Fluoroscopy was used for this exam. Please see the Operative report. Procedure Note Provider, MD Fabricio - 01/31/2018 Fluoroscopy was used for this exam. Please see the Operative report. Live Beltre MD FLUOROSCOPY ORDERABL ES * COMPLETE PFT W/WO BRONCHODILATOR (04/24/2015 1:03 PM CDT) Impressions [facility] - 04/24/2015 1:03 PM CDT [facility] DEPARTMENT OF PULMONARY, CRITICAL CARE, AND SLEEP MEDICINE Ronald Rivera 04/24/2015 INTERPRETATION Please see technologist's comments mentioned above. SPIROMETRY: Forced vital capacity is normal. FEV1 is normal. FEV1/FVC ratio is normal. The inspection of the patient's flow-volume loops shows normal configuration of the inspiratory and expiratory limbs. LUNG VOLUMES: Lung volumes by body plethysmography are within normal limits. DLCO: Diffusing capacity unadjusted for Hb and COHb is normal. AIRWAY RESISTANCE: The airway resistance and the specific conductance are normal. IMPRESSION: 1. Normal Pulmonary Function Test 2. In comparison to previous study on 10/17/2014 there is no significant change in FEV 1, FVC, TLC and DLCO. Dr Alex Jackson MD Pulmonary / Critical Care Fellow Division of Pulmonary, Critical Care, & Sleep Medicine [facility] Pager 04/24/2015 1:32 PM ATTENDING PHYSICIAN ATTESTKENYA/GHULAM VAZQUEZ M.D.: I have personally reviewed and interpreted the above test and I have made the necessary changes if needed to the above interpretation. Narrative Procedure Note ProviderFabricio MD - 04/10/2018 IMPRESSION [facility] DEPARTMENT OF PULMONARY, CRITICAL CARE, AND SLEEP MEDICINE Ronald Rivera 04/24/2015 INTERPRETATION Please see technologist's comments mentioned above. SPIROMETRY: Forced vital capacity is normal. FEV1 is normal. FEV1/FVC ratio is normal. The inspection of the patient's flow-volume loops shows normal configuration of the inspiratory and expiratory limbs. LUNG VOLUMES: Lung volumes by body plethysmography are within normal limits. DLCO: Diffusing capacity unadjusted for Hb and COHb is normal. AIRWAY RESISTANCE: The airway resistance and the specific conductance are normal. IMPRESSION: 1. Normal Pulmonary Function Test 2. In comparison to previous study on 10/17/2014 there is no significant change in FEV 1, FVC, TLC and DLCO. Dr Alex Jackson MD Pulmonary / Critical Care Fellow Division of Pulmonary, Critical Care, & Sleep Medicine [facility] Pager 04/24/2015 1:32 PM ATTENDING PHYSICIAN ATTKLEBER/GHULAM VAZQUEZ M.D.: I have personally reviewed and interpreted the above test and I have made the necessary changes if needed to the above interpretation. José Smart MD RESPIRATORY THERAPY ORDERABLES Performing Organization Address [facility] Co de Phone Number [facility] * CULTURE URINE (03/15/2015 7:58 AM CDT) Only the most recent of2 resultswithin the time period is included. Urine Culture Routine SEE NOTE [facility] ([facility]) Comment: CULTURE, URINE, ROUTINE MICRO NUMBER: [id number] TEST STATUS: FINAL SPECIMEN SOURCE: URINE SPECIMEN QUALITY: ADEQUATE RESULT: Multiple organisms present, each less than 10,000 CFU/mL. These organisms, commonly found on external and internal genitalia, are considered to be colonizers. No further testing performed. REPORT COMMENT: SPECIMEN TYPE->URINE FASTING:YES Test Performed at: [facility] [id number] [place] [address] GINETTE WU DO,MPH 03/15/2015 7:58 AM CDT 03/15/2015 7:58 AM CDT Xavier Alfred MD LAB - MICROBIOLOGY O RDERABLES Performing Organization Address [facility] Co de Phone Number [facility] ([facility]) * COMPLETE PFT W/WO BRONCHODILATOR (10/17/2014 11:31 AM AUTO HAULAWAY DRIVER) Impressions [facility] - 10/17/2014 11:31 AM AUTO HAULAWAY DRIVER [facility] DEPARTMENT OF PULMONARY, CRITICAL CARE, AND SLEEP MEDICINE PULMONARY FUNCTION TESTS Ronald Daniel Miguel 10/17/2014 INTERPRETATION Please see technologist's comments mentioned above. SPIROMETRY: Forced vital capacity is normal. FEV1 is normal. FEV1/FVC ratio is normal. There is no significant response to bronchodilator therapy. The inspection of the patient's flow-volume loops shows normal configuration of the inspiratory and expiratory limbs. LUNG VOLUMES: Lung volumes by body plethysmography shows a significant reduction in expiratory reserve volume. DLCO: Diffusing capacity unadjusted for Hb and COHb is within normal limits. AIRWAY RESISTANCE: The airway resistance and the specific conductance are normal. IMPRESSION: 1. Normal Pulmonary Function Test 2. There is no significant response to bronchodilator therapy. This does not preclude the use of bronchodilator therapy if clinically indicated. 3. Significant reduction in expiratory reserve volume, likely secondary to the patient's obesity. 4. There is no previous study available for comparison. Medardo Black MD I have reviewed this study and agree with the interpretation by Dr. Black. José Smart M.D. Web Services Architect of Internal Medicine Division of Pulmonary, Critical Care and Sleep Medicine [facility] Narrative Procedure Note ProviderFabricio MD - 04/10/2018 [facility] DEPARTMENT OF PULMONARY, CRITICAL CARE, AND SLEEP MEDICINE PULMONARY FUNCTION TESTS Ronald Rivera 10/17/2014 INTERPRETATION Please see technologist's comments mentioned above. SPIROMETRY: Forced vital capacity is normal. FEV1 is normal. FEV1/FVC ratio is normal. There is no significant response to bronchodilator therapy. The inspection of the patient's flow-volume loops shows normal configuration of the inspiratory and expiratory limbs. LUNG VOLUMES: Lung volumes by body plethysmography shows a significant reduction in expiratory reserve volume. DLCO: Diffusing capacity unadjusted for Hb and COHb is within normal limits. AIRWAY RESISTANCE: The airway resistance and the specific conductance are normal. IMPRESSION: 1. Normal Pulmonary Function Test 2. There is no significant response to bronchodilator therapy. This does not preclude the use of bronchodilator therapy if clinically indicated. 3. Significant reduction in expiratory reserve volume, likely secondary to the patient's obesity. 4. There is no previous study available for comparison. Medardo Black MD I have reviewed this study and agree with the interpretation by Dr. Black. José Smart M.D. Web Services Architect of Internal Medicine Division of Pulmonary, Critical Care and Sleep Medicine [facility] José Smart MD RESPIRATORY THERAPY ORDERABLES [facility] * VITAMIN B12 (08/05/2014 3:18 PM CDT) Vitamin B12 251 200 - 1,100 pg/mL [facility] ([facility]) Comment: Please Note: Although the reference range for vitamin B12 is 200-1100 pg/mL, it has been reported that between 5 and 10% of patients with values between 200 and 400 pg/mL may experience neuropsychiatric and hematologic abnormalities due to occult B12 deficiency; less than 1% of patients with values above 400 pg/mL will have symptoms. 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 Report dictated by Celestine Angulo MD (resident). This report was approved by CELESTINE ANGULO on 06/21/2014 4:35 PM . I, Dr. MAREK GRIFFITHS M.D. have personally reviewed and interpreted this examination/study. This report was electronically signed by MAREK GRIFFITHS M.D. on 06/21/2014 4:54 PM . Narrative 06/21/2014 4:54 PM CDT Exam: XR SPINE CERVICAL 4 VW MIN Exam Date: 06/21/2014 2:51 PM History: Numbness in hands Comparison: No prior exam is available for comparison. Findings: Bony alignment is normal. The vertebral body heights are preserved. Moderate degenerative changes are seen in the mid and lower cervical spine. No acute fracture or subluxation is present. The prevertebral soft tissues are normal. Neuroforaminal stenosis is seen at C4-5, C5-6, C6-7 on the left and C5-6 on the right. Procedure Note Marek Griffiths MD - 01/31/2018 Exam: XR SPINE CERVICAL 4 VW MIN Exam Date: 06/21/2014 2:51 PM History: Numbness in hands Comparison: No prior exam is available for comparison. Findings: Bony alignment is normal. The vertebral body heights are preserved.Moderate degenerative changes are seen in the mid and lower cervicalspine. No acute fracture or subluxation is present. The prevertebral softtissues are normal. Neuroforaminal stenosis is seen at C4-5, C5-6, C6-7 on the left and C5-6 on the right. IMPRESSION Impression: Moderate degenerative changes of the cervical spine with multilevelneuroforaminal stenosis as described above. Report dictated by Celestine Angulo MD (resident). This report was approved by CELESTINE ANGULO on 06/21/2014 4:35 PM . I, Dr. MAREK GRIFFITHS M.D. have personally reviewed and interpreted thisexamination/study. This report was electronically signed by MAREK GRIFFITHS M.D. on 06/21/20144:54 PM . Xavier Alfred MD DIAGNOSTIC IMAGING O RDERABLES * VITAMIN D 25-HYDROXY D2+D3 BY TANDEM MASS (01/05/2014 10:27 AM AUTO HAULAWAY DRIVER) Vitamin D, 25 Hydroxy Total 32 30 - 100 ng/mL [facility] ([facility]) Comment: 25-OHD3 indicates both endogenous production and supplementation. 25-OHD2 is an indicator of exogenous sources, such as diet or supplementation. Therapy is based on measurement of Total 25-OHD, with levels <20 ng/mL indicative of Vitamin D deficiency, while levels between 20 ng/mL and 30 ng/mL suggest insufficiency. Optimal levels are > or = 30 ng/mL. Vitamin D, 25 Hydroxy D3 17 See Below ng/mL [facility] ([facility]) Comment:Reference Range: Not established Vitamin D, 25 Hydroxy D2 15 See Below ng/mL [facility] ([facility]) Comment: Reference Range: Not established REPORT COMMENT: SPECIMEN TYPE->URINE Test Performed at: [facility] [address] [place] [address] BRIAN PRADO MD,FCAP 01/05/2014 10:2 7 AM [employer] HAULAWAY DRIVER 01/05/2014 10:29 AM AUTO HAULAWAY DRIVER Xavier Alfred MD LAB - CHEMISTRY ERA DE [facility] Organization Address City/State/ZIP Co de Phone Number [facility] ([facility]) * (ABNORMAL) LUZ COMPREHENSIVE PLUS PROFILE (01/05/2014 10:27 AM AUTO HAULAWAY DRIVER) Only the most recent of2 resultswithin the time period is included. LUZ Screen POSITIVE(A) NEGATIVE [facility] ([facility]) Comment: Test Performed at: [facility] [address] [address] SHELIA PRUETT MD PHD LUZ Titer #1 <1:40 titer [facility] ([facility]) Comment: Reference Ranges for Anti-Nuclear Ab Titer: <1:40 Negative 1:40-1:80 Low Antibody Level >1:80 Elevated Antibody Level Test Performed at: [facility] [address] [place] [address] SHELIA PRUETT MD PHD LUZ Pattern #1 NONE DETECTED [facility] ([facility]) Comment: A positive ANAchoice (TM) and a negative LUZ-IFA may still suggest the presence of autoimmune antibodies. Since different test methodologies possess different sensitivities, testing for specific RADHA and DS-DNA antibodies should be considered if clinically indicated. A positive LUZ result may be seen in a variety of diseases and healthy individuals. Its interpretation depends on clinical findings and other laboratory data. Rheumatoid Factor 9 <14 IU/mL [facility] ([facility]) dsDNA Antibody Crithidia IFA NEGATIVE NEGATIVE [facility] ([facility]) Comment: This test was developed and its performance characteristics have been determined by [employer] [facility]. It has not been cleared or approved by the U.S. Food and Drug Administration. The FDA has determined that such clearance or approval is not necessary. Performance characteristics refer to the analytical performance of the test. dsDNA Antibody Crithidia Titer TNP-Reflex testing not required. [facility] ([facility]) Comment: RADHA Hdez (SM) Antibody <1.0 NEG <1.0 NEGATIVE AI [facility] ([facility]) SM/HEAVY EQUIPMENT TECHNICIAN Antibody <1.0 NEG <1.0 NEGATIVE AI [facility] ([facility]) Sjogren's Antibodies (SSA) <1.0 NEG <1.0 NEGATIVE AI [facility] ([facility]) Sjogren's Antibodies (SSB) <1.0 NEG <1.0 NEGATIVE AI [facility]) RADHA SCL-70 Antibody <1.0 NEG <1.0 NEGATIVE AI [facility] ([facility]) Comment: REPORT COMMENT: SPECIMEN TYPE->URINE 01/05/2014 10:2 7 AM AUTO HAULAWAY DRIVER 01/05/2014 10:29 AM AUTO HAULAWAY DRIVER Xavier Alfred MD LAB - CHEMISTRY ERA DE [facility] ([facility]) * TSH (01/05/2014 10:27 AM AUTO HAULAWAY DRIVER) TSH 1.48 0.40 - 4.50 mIU/L [facility] ([facility]) Comment: REPORT COMMENT: SPECIMEN TYPE->URINE Test Performed at: [facility] [address] [place] [address] GINETTE WU DO,MPH Venous blood specimen (specimen) 01/05/2014 10:27 AM AUTO HAULAWAY DRIVER 01/05/2014 10:29 AM AUTO HAULAWAY DRIVER Xavier Alfred MD LAB - CHEMISTRY ERA DE Performing Organization Address [facility] de Phone Number [facility] ([facility]) * COMPLETE PFT W/WO BRONCHODILATOR (11/15/2013 12:16 PM AUTO HAULAWAY DRIVER) Impressions [facility] - 11/15/2013 12:16 PM AUTO HAULAWAY DRIVER [facility] DEPARTMENT OF PULMONARY, CRITICAL CARE AND SLEEP MEDICINE PULMONARY FUNCTION TESTS Ronald Daniel Miguel 11/15/2013 INTERPRETATION Please see technologist's comments mentioned above. SPIROMETRY: Forced vital capacity is normal. FEV1 is normal. FEV1/FVC ratio is normal. The inspection of the patient's flow-volume loops shows normal configuration of the expiratory and inspiratory limbs. LUNG VOLUMES: Lung volumes by body plethysmography are within normal limits. DLCO: Diffusing capacity unadjusted for Hb and COHb is increased. AIRWAY RESISTANCE: The airway resistance is normal and the specific conductance is decreased. IMPRESSION: 1. Normal Pulmonary Function Tests. 2. Comparison study from 08/19/12 shows a nonsignificant increase in FEV1 of 55mL, nonsignificant increase in FVC by 90mL, nonsignificant increase in TLC by 170mL, and a nonsignificant decrease in uncorrected DLCO by 0.82mL/min/mmHg. Blaine Pozo MD Pulmonary/Critical Care Fellow I have reviewed this study and agree with the interpretation by Dr. Pozo. José Smart M.D. Web Services Architect of Internal Medicine Division of Pulmonary, Critical Care and Sleep Medicine [facility] Narrative Procedure Note Provider, MD Fabricio - 04/10/2018 [facility] DEPARTMENT OF PULMONARY, CRITICAL CARE AND SLEEP MEDICINE PULMONARY FUNCTION TESTS Ronald Rivera 11/15/2013 INTERPRETATION Please see technologist's comments mentioned above. SPIROMETRY: Forced vital capacity is normal. FEV1 is normal. FEV1/FVC ratio is normal. The inspection of the patient's flow-volume loops shows normal configuration of the expiratory and inspiratory limbs. LUNG VOLUMES: Lung volumes by body plethysmography are within normal limits. DLCO: Diffusing capacity unadjusted for Hb and COHb is increased. AIRWAY RESISTANCE: The airway resistance is normal and the specific conductance is decreased. IMPRESSION: 1. Normal Pulmonary Function Tests. 2. Comparison study from 08/19/12 shows a nonsignificant increase in FEV1 of 55mL, nonsignificant increase in FVC by 90mL, nonsignificant increase in TLC by 170mL, and a nonsignificant decrease in uncorrected DLCO by 0.82mL/min/mmHg. Blaine Pozo MD Pulmonary/Critical Care Fellow I have reviewed this study and agree with the interpretation by Dr. Pozo. José Smart M.D. Web Services Architect of Internal Medicine Division of Pulmonary, Critical Care and Sleep Medicine [facility] César Tovar MD RESPIRATORY THERAPY ORDERABLES [facility] * NM LUNG QUANT DIFF PERF ONLY (11/15/2013 10:05 AM AUTO HAULAWAY DRIVER) Anatomical Region Laterality Modality Other Impressions 11/15/2013 4:34 PM AUTO HAULAWAY DRIVER Impression: Symmetric tracer distribution to both lungs with differential perfusion as above. This report was approved by Robert Casiano M.D. on 11/15/2013 4:32 PM . I, Dr. DAPHNIE ARCHIBALD D.O. have personally reviewed and interpreted this examination/study. This report was electronically signed by DAPHNIE ARCHIBALD D.O. on 11/15/2013 4:34 PM . Narrative 11/15/2013 4:34 PM AUTO HAULAWAY DRIVER Procedure: Quantitative Perfusion Lung Scan History: 68-year-old female patient with suspected mild pulmonary hypertension on echocardiogram, concern for chronic thromboembolism. Technique: 5.23 mCi Tc-99m MAA was administered IV in the right antecubital vein. Multiple planar perfusion images of the lungs were obtained in the anterior, posterior, and four oblique views. Perfusion to the upper, middle, and lower zone of each lung was quantitated using the anterior and posterior projection images. Findings: No prior studies are available for comparison. Multiple planar perfusion images of the lungs reveal mildly heterogeneous tracer distribution to both lungs with no segmental-appearing defects to suggest chronic pulmonary embolism. Differential perfusion to the lung zones is as follows: Left Right Upper 15% 17% Middle 26% 25% Lower 10% 7% Total 51% 49% Procedure Note Daphnie Archibald, - 01/31/2018 Procedure: Quantitative Perfusion Lung Scan History: 68-year-old female patient with suspected mild pulmonaryhypertension on echocardiogram, concern for chronic thromboembolism. Technique: 5.23 mCi Tc-99m MAA was administered IV in the rightantecubital vein. Multiple planar perfusion images of the lungs wereobtained in the anterior, posterior, and four oblique views. Perfusion tothe upper, middle, and lower zone of each lung was quantitated using the anterior and posterior projection images. Findings: No prior studies are available for comparison. Multiple planar perfusion images of the lungs reveal mildly heterogeneoustracer distribution to both lungs with no segmental-appearing defects tosuggest chronic pulmonary embolism. Differential perfusion to the lungzones is as follows: Left Right Upper 15% 17% Middle 26% 25% Lower 10% 7% Total 51% 49% IMPRESSION Impression: Symmetric tracer distribution to both lungs with differential perfusion asabove. This report was approved by Robert Casiano M.D. on 11/15/2013 4:32 PM. IDr. DAPHNIE D.O. have personally reviewed and interpreted thisexamination/study. This report was electronically signed by DAPHNIE ARCHIBALD D.O. on 11/15/20134:34 PM . César Tovar MD NM ORDERABLES * HIV-1 HIV-2 ANTIBODIES W RFLX REFLEXED (09/28/2013 12:08 PM AUTO HAULAWAY DRIVER) HIV 1/2 EIA Antibody NON-REACTI VE NON-REACT [facility]) Comment: A Nonreactive HIV-1/2 antibody result does not exclude HIV infection since the time frame for seroconversion is variable. If acute HIV infection is suspected, antibody retesting and nucleic acid amplification (HIV DNA/RNA) testing is recommended. Test Performed at: [facility] [id number] [place] [address] GINETTE WU DO,MPH 09/28/2013 12:0 8 PM AUTO HAULAWAY DRIVER 09/28/2013 12:09 PM AUTO HAULAWAY DRIVER César Tovar MD LAB - CHEMISTRY ERA DE Performing Organization Address [facility] Co de Phone Number [facility] ([facility]) * LAB HISTORICAL RESULTS-ONBASE (08/18/2012) Only the most recent of3 resultswithin the time period is included. 08/18/2012 Narrative [facility] - 05/08/2013 6:29 AM CDT Historical Provider LAB - CHEMISTRY Reagan GRAYSON Performing Organization Address [facility] Co de Phone Number [address] * PATHOLOGY/GENETICS HISTORICAL-ONBASE (04/15/2012 9:37 AM CDT) 04/15/2012 9:37 AM CDT Historical Provider LAB - CHEMISTRY Reagan GRAYSON Performing Organization Address [facility] Co de Phone Number [address] * PATHOLOGY REPORTS - HPF HISTORICAL (03/19/2012 2:39 PM CDT) 03/19/2012 2:39 PM CDT Narrative [facility] - 03/19/2012 2:39 PM CDT García Downing MD LAB - PATHOLOGY/CYTO LOGY ORDERABLES [facility] [address] [place] [address], [facility] * PATHOLOGY TISSUE FOR DERMATOLOGY (03/19/2012 12:00 AM CDT) Only the most recent of2 resultswithin the time period is included. 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 GROSS DESCRIPTION: Received is one [employer]'s media filled container labeled with the patient's name and designated right upper back. The specimen consists of a punch biopsy measuring [id number]. The specimen is submitted in whole for direct immunofluorescence testing. MICROSCOPIC DESCRIPTION: Controls were run in parallel. There is IgA, IgG and IgM in the papillary dermis consistent with colloid bodies. Staining is negative with C3. Colloid bodies represent dyskeratotic keratinocytes which can be seen in lichenoid / interface dermatitis as well as in chronic rubbing or scratching. See fixed tissue results. Final Diagnosis performed by Komal Castro M.D. Electronically signed 03/23/2012 4:18:45PM [facility] Comment: Performed at: Dermatopathology Laboratory [facility] - Department of Dermatology [address] [facility] [place] [address] Phone number: [phone] Toll Free: [phone] FAX: [phone] Skin (tissue) specimen (specimen) 03/19/2012 03/20/2012 Narrative [facility] - 03/23/2012 4:42 PM CDT Preferred Lab:->Derm-Path Type:->DIF History->biopsy from thin light pink somewhat edematous papules, also has areas of reticulated vialecous patches on extremities and flanks 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 [phone] Care Teams Software Engineer Relationship Specialty Start Date End Date Faith Shukla DO [address] [place] [address] PCP - General 05/30/20
--- OUTSIDE RECORDS SUMMARY | 2024-12-28 08:49 | XMS_ITS | Clinical Summary ---
Author Organization [facility] Address [facility] [place] [address] Care Team Providers Care Assembling Inspector Name Role Phone DonallizbethFaith lizama Primary Care Provider [phone] Allergies Active Allergy Reactions Criticality Noted Date Comments Celecoxib Nausea And Vomiting 05/17/2019 Clavulanic Acid Rash,Vomiting Medium 04/12/2019 Sulfa (Sulfonamide Antibiotics) Vomiting Low Medications atorvastatin (LIPITOR) 10 mg tabletIndication s:hyperlipidemia Take 1 tablet (10 mg total) by mouth every morning 2 Active cholecalciferol (VITAMIN D-3) 25 mcg (1,000 unit) tablet Take 1 tablet (1,000 Units total) by mouth every morning Active acetaminophen 500 mg capsuleIndicatio ns:Pain Take 2 capsules (1,000 mg total) by mouth every 8 (eight) hours 90 tablet 3 Active meloxicam (MOBIC) 15 mg tabletIndication s:Pain Take 1 tablet (15 mg total) by mouth daily 30 tablet 3 Active apixaban (ELIQUIS) 5 mg tabletIndication s:New onset atrial fibrillation (CMS/HCC) (HCC) Take 1 tablet (5 mg total) by mouth 2 (two) times a day 180 tablet 3 4 Active amoxicillin 500 mg tablet/capsuleIn dications:Prophy lactic antibiotic TAKE 4 PILLS 1 HOUR BEFORE DENTAL APPOINTMENT. 12 tablet/capsu le 4 Active Additional Information Patient not taking.Reported on 09/24/2024 losartan (COZAAR) 100 mg tabletIndication s:Hypertensive heart disease without heart failure Take 1 tablet (100 mg total) by mouth daily 90 tablet 3 4 03/12/20 25 Active carvediloL (COREG) 12.5 mg tablet Take 1 tablet (12.5 mg total) by mouth 2 (two) times a day with meals 180 tablet 3 4 09/24/20 25 Active Active Problems Problem Noted Date Diagnosed Date Hypertensive heart disease without heart failure 11/12/2023 Class 3 obesity 11/12/2023 WHO group 1 pulmonary arterial hypertension 08/03 Diastolic dysfunction 08/19/2023 Carpal tunnel syndrome, right 08/14/2023 Left hip prosthetic joint infection (CMS/HCC) Assessment & Plan (01/07/2023 2:40 PM ULTRASONIC WELDING MACHINE OPERATOR): Ronald Rivera is a 77 y.o. female with PMH of HTN, HLD, COPD, pulmonary HTN, AMY, mixed connective tissue disease, Right hip arthroplasty 2012, Left total hip arthroplasty 11/07/2022 with persistent wound drainage concerning for acute left hip PJI. Initial concern for incisional cellulitis and she was prescribed cephalexin 11/29 and doxycycline on 12/18. Inflammatory markers 12/06/2022: ESR 30, CRP 10.6 Inflammatory markers 12/18/2022: ESR 21, CRP 3.9 Left hip fluid 12/10/2022: 3,396 nucleated cells (in setting of 2.8 million RBCs), 66% neutrophils, 31% lymphocytes Initially no concern for Left hip PJI, but due to nonhealing wound and persistent drainage, she was taken to the OR on 12/31 for I&D, head and liner exchange, placement of antibiotic cement beads. Intraoperatively noted copious yellow/straw appearing fluid. Left hip tissue cultures 12/31: NGTD She c/o discomfort when voiding over the weekend. Urine culture negative for UTI. Redness in perineal area positive for erythema consistent of intertrigo. Started on fluconazole today. We are recommending 2 weeks total of antibiotics to cover superficial hip infection (12/31-01/14) Recommendations: - Discontinue vancomycin IV and ceftriaxone IV (done) - Start cefuroxime 250mg PO BID and doxycycline 100mg PO BID for L. hip soft tissue infection (ordered) - Start fluconazole 200mg PO weekly for 4 weeks for intertrigo (can discontinue before 4 weeks if intertrigo improves) - ID will formally sign-off. Please see sign-off note from 01/07 for complete recommendations Wound drainage 12/24/2022 Overview (12/24/2022): Added automatically from request for surgery [id number] Primary osteoarthritis of left hip 11/07/2022 Abnormal weight gain 10/02/2022 Class 2 obesity due to exces s calories without serious comorbidity with body mass index (BMI) of 39.0 to 39.9 in adult 10/02/2022 Pulmonary air trapping 05/13/2022 Bilateral carpal tunnel syndrome 04/16/2022 Idiopathic peripheral neuropathy 04/16/2022 Osteoporosis 04/16/2022 OA (osteoarthritis) 04/16/2022 Pulmonary HTN 04/16/2022 Leg swelling 01/04/2020 Venous insufficiency 01/04/2020 Overview (04/16/2022): Last Assessment & Plan: Resolved, not tolerating HCTZ previously stopped. Pt monitoring salt and leg elevation with improvement. Elevated serum immunoglobulin free light chains 05/17/2019 NSIP (nonspecific interstitial pneumonia) (CMS/H CC) 04/12/2019 Prediabetes 02/17/2019 Primary osteoarthritis of left knee 09/10/2018 Overview (04/16/2022): Moderate tricompartmental MCTD (mixed connective tissue disease) ([facility]/HCC) 06/30/2018 Epithelial (juvenile) corneal dystrophy 10/16/20 17 Pseudophakia, both eyes 10/16/2017 Conductive hearing loss of both ears 07/02/2017 Obstructive sleep apnea 02/10/2017 Pulmonary fibrosis ([facility]/HCC) 02/10/2017 Overview (04/16/2022): Mild basilar Chronic obstructive lung disease 05/16/2015 Iron deficiency 02/01/2015 Vitamin B12 deficiency 02/01/2015 Metabolic syndrome 12/06/2013 Mixed hyperlipidemia 12/02/2008 Essential (primary) hypertension 09/10/2007 Overview (04/16/2022): Last Assessment & Plan: Per pt report, BP remains above goal. Did not tolerated HCTZ. Swelling improved, did not tolerate change to BID metoprolol she is now back on Metoprolol XL with controled HR. Will add Norvasc 2.5 mg daily and she will call in one week with report on effects of her blood pressure. Follow up with Dr. Walters in 3 months. Resolved Problems Problem Noted Date Diagnosed Date Resolved Date Vitamin D deficiency, unspecified 01/07/2011 08/19/2023 Immunizations Immunization Administration Dates Next Due Influenza, Quadrivalent, Hig h Dose, Preservative Free, Intrr 09/17/2021 Influenza, Quadrivalent, Rec ombinant, Egg Free, Preservative Free, Intramuscular 09/01/2020 Influenza, Trivalent, IM (MDV) 09/10/2007 Influenza, Unspecified 07/22/2022 Pneumococcal Conjugate PCV 13 05/30/2015 Pneumococcal Polysaccharide PPV23 09/06/2010 Tdap 03/27/2017 Surgical History Surgery Date Site/Laterality Comments CATARACT EXTRACTION 2017 CHOLECYSTECTOMY 2018 HYSTERECTOMY 1984 JOINT REPLACEMENT right hip 2013 TUBAL LIGATION 1984 FLUORO GUIDED ASPIRATION HIP LEFT 12/10/2022 Left HIP SURGERY 11/07/2022 Left HIP SURGERY 12/31/2022 Left wasn't healing right; was seeping Medical History Medical History Date Comments Arthritis Hypertension Sleep apnea Autoimmune disease (CMS/HCC) (HCC) PONV (postoperative nausea and vomiting) Reports she stayed overnight in hospital after gallbladder removal IN 2017 due to N/V Family History Medical History Relation Name Comments Heart disease Brother Sky Brandt Stroke Father Gerald Brandt Stroke Maternal Grandfather Terry Chery Heart attack Mother Hetal Brandt Myocardial In farction; Cause of : Myocardial Infarction Hypertension Mother Hetal Brandt Anesthesia problems Neg Hx Malig Hypertension Neg Hx Malig Hyperthermia Neg Hx Pseudochol deficiency Neg Hx Relation Name Status Comments Brother Sky Brandt Father Gerald Brandt Maternal Grandfather Terry Chery Mother Hetal Brandt Social History Tobacco Use Types Packs/Day Years Used Date Smoking Tobacco: Former Cigarettes 0.5 1 1 965 - 1966 Smokeless Tobacco: Never Tobacco Cessation:Counseling Given: Not Answered Comments:smoked very light from age [age] Alcohol Use Standard Drinks/Week Comments Yes 0 (1 standard drink = 0.6 oz pur e alcohol) OASIS D0700: Social Isolation Answer Da te Recorded Frequency of experiencing loneliness or isolatio n Rarely 01/24/2023 OASIS A1250: Transportation Answer Date Recorded Lack of Transportation (Medical) No 01/24/2023 Lack of Transportation (Non-Medical) No 01/24/2023 Patient Unable or Declines to Respond No 01/24/2023 OASIS B1300: Health Literacy Answer Santosh e Recorded Frequency of needing help to read materials from doctor or pharmacy Sometimes 01/24/2023 AUDIT-C Answer Date Recorded Q1: How often do you have a drink containing alc ohol? 2-4 times a month 12/27/2022 Q2: How many drinks containi ng alcohol do you have on a typical day when you are drinking? 1 or 2 12/27/2022 Q3: How often do you have si x or more drinks on one occasion? Never 12/27/2022 Personal Safety Answer Date Recorded Have you ever been in or are you currently in a harmful physical or emotional relationship or is someone making you feel afraid or unsafe? Denies 09/10/2023 Comments No Sex and Gender Information Value Date Recorded Sex Assigned at Not on file Legal Sex Female 1:42 AM ULTRASONIC WELDING MACHINE OPERATOR Gender Identity Female 11/01/2022 1:18 PM ULTRASONIC WELDING MACHINE OPERATOR Sexual Orientation Straight 11/01/2022 1: 18 PM ULTRASONIC WELDING MACHINE OPERATOR Obstetrics History Last Filed Vital Signs Vital Sign Reading Time Taken Comments Blood Pressure 156/74 09/24/2024 1:28 PM ULTRASONIC WELDING MACHINE OPERATOR Pulse 72 09/24/2024 1:28 PM ULTRASONIC WELDING MACHINE OPERATOR Temperature 36.8 C (98.3 F) 12/17/2023 5:18 PM ULTRASONIC WELDING MACHINE OPERATOR Respiratory Rate 20 12/17/2023 5:18 PM ULTRASONIC WELDING MACHINE OPERATOR Oxygen Saturation 94% 09/24/2024 1:28 PM ULTRASONIC WELDING MACHINE OPERATOR Inhaled Oxygen Concentration - - Weight 104.3 kg (230 lb) 09/24/2024 1:28 PM ULTRASONIC WELDING MACHINE OPERATOR Height 162.6 cm (5' 4 ) 09/24/2024 1:28 PM ULTRASONIC WELDING MACHINE OPERATOR Body Mass Index 39.48 09/24/2024 1:28 PM ULTRASONIC WELDING MACHINE OPERATOR Plan of Treatment Health Maintenance Due Date Last Done Comments Depression Screening 1945 Hepatitis C Screening 1945 Osteoporosis Screening-Bone Density Scan 1945 Hepatitis B Screening 1963 Zoster Vaccine (1 of 2) 1995 Well Visit 65+ 2010 Covid-19 Vaccine (4 - 2023-2 5 season) 2024 09/22/2021, 01/04/2021, 11/30/2020 Influenza Vaccine (#1) 2024 2, 09/17/2021, 09/01/2020, Additional history exists Fall Risk Assessment 09/10/2024 09/10/2023 DTaP/Tdap/Td Vaccine (2 - Td or Tdap) 03/27/2027 03/27/2017 Pneumococcal vaccine 65+ Completed 05/30/2015, 02/2010 Medical Devices Implanted Type Area Tan Room Supervisor Device Identifier Shelf Expiration Date Model / Serial / Lot [employer] Shell Acetabular Trident Ii Tritanium D Od50mm Hip 9 Hole Sterile 709-04-50d - Sna - [id number] Implanted:Qty: 1 on 11/07/2022 by Kailash Martinez MD at [facility] Other - see comments Left: Hip [employer] [id number] 12/22/2026 709-04-5 0D / NA / [id number] Description:Implant pause pe rformed. [employer] Insert Trident 0deg 36mm 723-00-36d - Sna - [id number] Implanted:Qty: 1 on 11/07/2022 by Kailash Martinez MD at [facility] Other - see comments Left: Hip [employer] [id number] 09/11/2027 723-00-3 6D / NA / [id number] Description:Implant pause pe rformed. [employer] Stem Insignia Hip Size 4 High Offset 8625-9623 - Sna - [id number] Implanted:Qty: 1 on 11/07/2022 by Kailash Martinez MD at [facility] Other - see comments Left: Hip [employer] [id number] 08/08/2027 7000-660 4 / NA / [id number] Description:Implant pause pe rformed. [employer] V40 36mm Anatomic Hip +2.5mm Offset Taper Head Femoral Biolox 6570-0-536 - Sna - [id number] Implanted:Qty: 1 on 11/07/2022 by Kailash Martinez MD at [facility] Other - see comments Left: Hip [employer] [id number] 07/19/2027 6570-0-5 36 / NA / [id number] Description:Implant pause pe rformed. [employer] Screw Bone Trident Ii L20mm Od6.5mm Low Profile Hexagonal Sterile 4084-7212 - Sna - [id number] Implanted:Qty: 1 on 11/07/2022 by Kailash Martinez MD at [facility] Screw Left: Hip [employer] [id number] 09/29/2027 7030-652 0 / NA / [id number] Description:Implant pause pe rformed. [employer] Screw Bone Trident Ii L30mm Od6.5mm Low Profile Hexagonal Sterile 1208-8191 - Sna - [id number] Implanted:Qty: 1 on 11/07/2022 by Kailash Martinez MD at [facility] Screw Left: Hip [employer] [id number] 09/17/2027 7030-653 0 / NA / [id number] Description:Implant pause pe rformed. Right Hip Replacement Right: Hip [employer] Insert Trident 0deg 36mm 723-00-36d - [id number] Implanted:Qty: 1 on 12/31/2022 by Kailash Martinez MD at [facility] Left: Hip [employer] [id number] 10/17/2027 723-00-3 6D / / [id number] [employer] V40 36mm Anatomic Hip +2.5mm Offset Taper Head Femoral [employer] 6570-0-536 - [id number] Implanted:Qty: 1 on 12/31/2022 by Kailash Martinez MD at [facility] Left: Hip [employer] [id number] 10/09/2027 6570-0-5 36 / / [id number] [employer] Stimulan Rapid Cure Kit Paste Solid Waste Manager 10cc 20cc Bone Void 240130 - [id number] Implanted:Qty: 1 on 12/31/2022 by Kailash Martinez MD at [facility] Left: Hip [employer] [id number] 08/02/2025 192227 / / [id number] [employer] V40 36mm Anatomic Hip +5mm Offset Taper Head Femoral [employer] Delta 6570-0-236 - [id number] Implanted:Qty: 1 on 12/31/2022 by Kailash Martinez MD at [facility] Left: Hip [employer] [id number] 05/20/2027 6570-0-2 36 / / [id number] Procedures Procedure Name Priority Date/Time Associated Diagnosis Comments MAGNESIUM Routine 09/27/2024 10:02 AM ULTRASONIC WELDING MACHINE OPERATOR NSVT (nonsustained ventricular tachycardia) (HCC) BASIC METABOLIC PANEL Routine 09/27/2024 10:02 AM ULTRASONIC WELDING MACHINE OPERATOR NSVT (nonsustained ventricular tachycardia) (HCC) from Last 3 Months Results * Magnesium (09/27/2024 10:02 AM ULTRASONIC WELDING MACHINE OPERATOR) Magnesium 2.2 1.5 - 2.5 mg/dL [facility] Blood 09/27/2024 10:0 2 AM ULTRASONIC WELDING MACHINE OPERATOR 09/27/2024 10:03 AM ULTRASONIC WELDING MACHINE OPERATOR Narrative [facility] - 09/28/2024 5:59 AM ULTRASONIC WELDING MACHINE OPERATOR FASTING:NO FASTING: NO us Silva Mcconnell NP LAB BLOOD ORDERABLES Myriam keysha Result [facility] [address] [address] [place] [id number] * Basic metabolic panel (09/27/2024 10:02 AM ULTRASONIC WELDING MACHINE OPERATOR) Glucose 93 65 - 139 mg/dL [facility] Comment: Non-fasting reference interval BUN 16 7 - 25 mg/dL [facility] Creatinine 0.81 0.60 - 1.00 mg/dL [facility] eGFR 74 > OR = 60 mL/min/1.7 3m2 [facility] BUN/creat ratio SEE NOTE: 6 - 22 (calc) [facility] Comment: Not Reported: BUN and Creatinine are within reference range. Sodium 138 135 - 146 mmol/L [facility] Potassium, pl 4.2 3.5 - 5.3 mmol/L [facility] Chloride 106 98 - 110 mmol/L [facility] CO2 26 20 - 32 mmol/L [facility] Calcium 8.7 8.6 - 10.4 mg/dL [facility] Blood 09/27/2024 10:0 2 AM ULTRASONIC WELDING MACHINE OPERATOR 09/27/2024 10:03 AM ULTRASONIC WELDING MACHINE OPERATOR Narrative [facility] - 09/28/2024 5:59 AM ULTRASONIC WELDING MACHINE OPERATOR FASTING:NO FASTING: NO Silva Mcconnell NP LAB BLOOD ORDERABLES Myriam chopra Result [facility] [address] [place] [address] from Last 3 Months Insurance MEDICARE [facility] MEDICARE [facility] MEDICARE [employer] MEDICARE SUPPLEMENT MEDICARE [facility] Advance Directives For more information, please contact: [phone] * Full Code (Latest Code Status on File) Date Activated Date Inactivated Comments 12/31/2022 9:16 PM 01/09/2023 9:05 PM * Full Code Date Activated Date Inactivated Comments 11/07/2022 4:23 PM 11/08/2022 3:19 PM Care Teams Assembling Inspector Relationship Specialty Start Date End Date Faith Shukla DO PCP - General Family Medicine 03/14/22
--- OUTSIDE RECORDS SUMMARY | 2024-12-28 08:49 | XMS_ITS | Encounter Summary ---
Author Organization [facility] Health Address [address] [place] [address] Care Team Providers Care House Nurse Name Role Phone David Pantoja MD Primary Care Provider [phone] Faith Shukla DO Primary Care Provider [phone] Reason for Visit * Reason Onset Date Comments Appointment 05/03/2019 Encounter Details Date Type Department Care Team (Late Contact Info) Description 05/03/2019 Telephone [facility] [phone] [place], [place] [id number] Linda Hampton Appointment Social History Tobacco Use Types Packs/Day Years [...] on file documented as of this encounter Miscellaneous Notes * Telephone Encounter - Linda Hampton - 05/03/2019 2:06 PM CDT 1st attempt to contact patient to reschedule appointment. No answer vm was left. documented in this encounter Plan of Treatment Upcoming Encounters Date Type Department Care Team ([facility] Contact Info) Description 06/30/2025 10:00 AM CDT Office Visit [facility] [address] [place] [address] Nita Lundy, AZALIA-BOILER TENDER [address] OF [address]MON[facility] [address] documented as of this encounter Goals Goal Patient Goal Type Associated Problems Recent Progress Patient-Stated? Author Safety General On track( 019 2:02 PM CDT) No Nita Anaya, RN Note: Expected end date: ONgonig Interventions: Your nurse will assess your risk for falls/injury each visit Use appropriate and safe transfer methods Medication Management General On track( 2:01 PM CDT) Nita Maria, RN Note: Expected end date: Ongoing Interventions: Take all medications as prescribed Let your doctor know right away about any changes in your medications documented as of this encounter Visit Diagnoses Not on filedocumented in this encounter Care Teams House Nurse Relationship Specialty Start Date End Date David Pantoja MD [address] [place] [address] PCP - General 04/11/12 05/29/20 Faith Shukla DO [address] [place] [place] [id number] PCP - General 05/30/20 documented as of this encounter
--- OUTSIDE RECORDS SUMMARY | 2024-12-28 08:49 | XMS_ITS | Referral Summary ---
Author Organization [facility] Address Formerly [facility], [id number] [place] [address] Care Team Providers Care Restrike Hammer Operator Name Role Phone DonallizbethFaith lizama Primary Care Provider [phone]- [phone] Allergies Active Allergy Reactions Criticality Noted Date [...] (CMS/HCC) Assessment & Plan (01/07/2023 2:40 PM CAN STERILIZER): Ronald Rivera is a 77 y.o. female [...] (12/24/2022): Added automatically from request for surgery [id number] Primary osteoarthritis of left hip 11/07/2022 Abnormal [...] Moderate tricompartmental MCTD (mixed connective tissue disease) ([facility]/HCC) 06/30/2018 Epithelial (juvenile) corneal dystrophy 10/16/20 17 Pseudophakia, both eyes 10/16/2017 Conductive hearing loss of both ears 07/02/2017 Obstructive sleep apnea 02/10/2017 Pulmonary fibrosis ([facility]/HCC) 02/10/2017 Overview (04/16/2022): Mild basilar Chronic obstructive [...] 05/30/2015 Pneumococcal Polysaccharide PPV23 09/06/2010 Tdap 03/27/2017 Social History Tobacco Use Types Packs/Day Years Used Date Smoking Tobacco: Former Cigarettes 0.5 1 1 965 - 0606 Smokeless Tobacco: Never Tobacco Cessation:Counseling Given: Not [...] on file Legal Sex Female 1:42 AM CAN STERILIZER Gender Identity Female 11/01/2022 1:18 PM CAN STERILIZER Sexual Orientation Straight 11/01/2022 1: 18 PM CAN STERILIZER Last Filed Vital Signs Vital Sign Reading Time Taken Comments Blood Pressure 156/74 09/24/2024 1:28 PM CAN STERILIZER Pulse 72 09/24/2024 1:28 PM CAN STERILIZER Temperature 36.8 C (98.3 F) 12/17/2023 5:18 PM CAN STERILIZER Respiratory Rate 20 12/17/2023 5:18 PM CAN STERILIZER Oxygen Saturation 94% 09/24/2024 1:28 PM CAN STERILIZER Inhaled Oxygen Concentration - - Weight 104.3 kg (230 lb) 09/24/2024 1:28 PM CAN STERILIZER Height 162.6 cm (5' 4 ) 09/24/2024 1:28 PM CAN STERILIZER Body Mass Index 39.48 09/24/2024 1:28 PM CAN STERILIZER Plan of Treatment Not on file Medical Devices Implanted Type Area Recreational Vehicle Repairer Device Identifier Shelf Expiration Date Model / Serial / Lot [employer] Shell Acetabular Trident Ii Tritanium D Od50mm Hip 9 Hole Sterile 709-04-50d - Sna - [id number] Implanted:Qty: 1 on 11/07/2022 by Kailash Martinez MD at [facility] Other - see comments Left: Hip [employer] [id number] 12/22/2026 709-04-5 0D / NA / [id number] Description:Implant pause pe rformed. [employer] Insert Trident 0deg 36mm 723-00-36d - Sna - [id number] Implanted:Qty: 1 on 11/07/2022 by Kailash Martinez MD at [facility] Other - see comments Left: Hip [employer] [id number] 09/11/2027 723-00-3 6D / NA / [id number] Description:Implant pause pe rformed. [employer] Stem Insignia Hip Size 4 High Offset 6572-9016 - Sna - [id number] Implanted:Qty: 1 on 11/07/2022 by Kailash Martinez MD at [facility] Other - see comments Left: Hip [employer] [id number] 08/08/2027 7000-660 4 / NA / [id number] Description:Implant pause pe rformed. [employer] V40 36mm Anatomic Hip +2.5mm Offset Taper Head Femoral Biolox 6570-0-536 - Sna - [id number] Implanted:Qty: 1 on 11/07/2022 by Kailash Martinez MD at [facility] Other - see comments Left: Hip [employer] [id number] 07/19/2027 6570-0-5 36 / NA / [id number] Description:Implant pause pe rformed. [employer] Screw Bone Trident Ii L20mm Od6.5mm Low Profile Hexagonal Sterile 3286-4400 - Sna - [id number] Implanted:Qty: 1 on 11/07/2022 by Kailash Martinez MD at [facility] Screw Left: Hip [employer] [id number] 09/29/2027 7030-652 0 / NA / [id number] Description:Implant pause pe rformed. [employer] Screw Bone Trident Ii L30mm Od6.5mm Low Profile Hexagonal Sterile 7497-5535 - Sna - [id number] Implanted:Qty: 1 on 11/07/2022 by Kailash Martinez MD at [facility] Screw Left: Hip [employer] [id number] 09/17/2027 7030-653 0 / NA / [id number] Description:Implant pause pe rformed. Right Hip Replacement Right: Hip [employer] Insert Trident 0deg 36mm 723-00-36d - [id number] Implanted:Qty: 1 on 12/31/2022 by Kailash Martinez MD at [facility] Left: Hip [employer] [id number] 10/17/2027 723-00-3 6D / / [id number] [employer] V40 36mm Anatomic Hip +2.5mm Offset Taper Head Femoral Biolox 6570-0-536 - [id number] Implanted:Qty: 1 on 12/31/2022 by Kailash Martinez MD at [facility] Left: Hip [employer] [id number] 10/09/2027 6570-0-5 36 / / [id number] Biocomposites Stimulan Rapid Cure Kit Paste Early Childhood Associate Teacher 10cc 20cc Bone Void 016233 - [id number] Implanted:Qty: 1 on 12/31/2022 by Kailash Martinez MD at [facility] Left: Hip [employer] [id number] 08/02/2025 192724 / / [id number] [employer] V40 36mm Anatomic Hip +5mm Offset Taper Head Femoral Biolox Delta 6570-0-236 - [id number] Implanted:Qty: 1 on 12/31/2022 by Kailash Martinez MD at [facility] Left: Hip [employer] [id number] 05/20/2027 6570-0-2 36 / / [id number] Procedures Procedure Name Priority Date/Time Associated Diagnosis Comments MAGNESIUM Routine 09/27/2024 10:02 AM CAN STERILIZER NSVT (nonsustained ventricular tachycardia) (HCC) BASIC METABOLIC PANEL Routine 09/27/2024 10:02 AM CAN STERILIZER NSVT (nonsustained ventricular tachycardia) (HCC) from Last 3 Months Results * Magnesium (09/27/2024 10:02 AM CAN STERILIZER) Magnesium 2.2 1.5 - 2.5 mg/dL [facility] Blood 09/27/2024 10:0 2 AM CAN STERILIZER 09/27/2024 10:03 AM CAN STERILIZER Narrative [facility] - 09/28/2024 5:59 AM CAN STERILIZER FASTING:NO FASTING: NO Silva Mcconnell CERTIFIED BREASTFEEDING EDUCATOR LAB BLOOD ORDERABLES Myriam l Result Performing Organization Address [facility]/ZIP Co de Phone Number [facility] [address] [address] [phone] * Basic metabolic panel (09/27/2024 10:02 AM CAN STERILIZER) Pathologist [facility] Glucose 93 65 - 139 mg/dL [facility] Comment: Non-fasting reference interval BUN 16 7 - 25 mg/dL [facility] Creatinine 0.81 0.60 - 1.00 mg/dL [facility] eGFR 74 > OR = 60 mL/min/1.7 3m2 [facility] BUN/creat ratio SEE NOTE: (calc) [facility] Comment: Not Reported: [...] [facility] Blood 09/27/2024 10:0 2 AM CAN STERILIZER 09/27/2024 10:03 AM CAN STERILIZER Narrative [facility] - 09/28/2024 5:59 AM CAN STERILIZER FASTING:NO FASTING: NO Silva Mcconnell CERTIFIED BREASTFEEDING EDUCATOR LAB BLOOD ORDERABLES Myriam l Result Performing Organization Address City/[facility]/ZIP Co de Phone Number [facility] [address] [address] [phone] from Last 3 Months Insurance MEDICARE [facility] MEDICARE [facility] MEDICARE BLUE CROSS MEDICARE SUPPLEMENT MEDICARE [facility] Advance Directives For more information, please contact: [phone] * Full Code (Latest Code Status on File) Date Activated Date Inactivated Comments 12/31/2022 9:16 PM 01/09/2023 9:05 PM * Full Code Date Activated Date Inactivated Comments 11/07/2022 4:23 PM 11/08/2022 3:19 PM Care Teams Restrike Hammer Operator Relationship Specialty Start Date End Date Faith Shukla DO PCP - General Family Medicine 03/14/22
[2024-12-28 10:13] LABS: Add Urine Microscopic? YES; Appearance Urine Clear (Clear); Bacteria Urine None Seen /hpf; Bilirubin Urine Negative (Negative); Blood Urine Negative (Negative); Color Urine Yellow (Yellow); Glucose Urine UA Negative (Negative); Ketones Urine Negative (Negative); Leukocyte Esterase Ur 2+ LEU/UL (Negative); Nitrate Urine Negative (Negative); Non Pathogenic Casts 0-2; Protein Urine Negative (Negative); RBC Urine 0-2 /hpf (0-2); Specific Grav Ur 1.015 (1.001-1.035); Squamous Epithelial Cell Urine Occasional /hpf (Few); Urobilinogen Urine 0.2 mg/dL (<2.0); pH Urine 6.5 (5.0-9.0)
[2024-12-28 10:23] LABS: Alanine Aminotransferase 19 U/L (6-35); Albumin Level 4.3 g/dL (3.5-5.1); Alkaline Phosphatase 110 U/L (38-126); Anion Gap 11 mmol/L (4-12); Aspartate Amino Transferase 38 U/L (14-36); Bilirubin,Total 0.8 mg/dL (0.2-1.3); Blood Urea Nitrogen 16 mg/dL (7-17); Calcium 9.5 mg/dL (8.4-10.2); Carbon Dioxide 26 mmol/L (22-30); Chloride 105 mmol/L (98-107); Cholesterol 133 mg/dL (0-200); Estimated Glomerular Filt Rate > 60; Glucose 100 mg/dL (65-110); HDL Direct 40 mg/dL; Potassium 4.1 mmol/L (3.4-5.0); Sodium 142 mmol/L (137-145); Triglycerides 102 mg/dL (<150)
[2024-12-28 10:34] LABS: LDL Cholesterol Direct 57 mg/dL
[2024-12-28 10:37] LABS: Vitamin D 25 Hydroxy 43.8 ng/mL
[2024-12-28 14:27] LABS: Hemoglobin A1C 5.7 % (<5.7)
== END 2024-12-28 08:35 | disposition home or self-care (01) ==
PROVIDERS: PCP Family Medicine; Visit Provider Nurse Practitioner
DX: R82.90 Unspecified abnormal findings in urine (principal); E78.2 Mixed hyperlipidemia; R73.03 Prediabetes; E55.9 Vitamin D deficiency, unspecified
CPT/HCPCS: 36415; 80053; 80061; 81001; 82306; 83036; 87086

== ENCOUNTER 2025-02-08 15:22 | Outpatient (CLI) | payer MEDICARE, SELFPAY ==
--- NOTE | ~2025-02-08 | XR_ITS ---
Supine and upright views of the abdomen Clinical history: UTI Findings: Bowel gas pattern is nonspecific. No evidence for obstruction or free air. No abnormal mass lesion or calcification is seen. Cholecystectomy clips are present. Bilateral hip arthroplasties are present. Impression: No significant abnormality is seen. Reviewed, dictated and [place] [facility] Impression: No significant abnormality is seen.
== END 2025-02-08 15:23 | disposition home or self-care (01) ==
PROVIDERS: PCP Family Medicine; Visit Provider Family Medicine
DX: N39.0 Urinary tract infection, site not specified (principal)
CPT/HCPCS: 74018

== ENCOUNTER 2025-03-31 12:30 | Emergency (ER) | payer MEDICARE, SELFPAY ==
--- NOTE | ~2025-03-31 | CT_ITS ---
History: Fall PROCEDURE: CT cervical spine and facial bones without intravenous contrast. COMPARISON: None TECHNIQUE: Multiple contiguous axial images of the cervical spine and facial bones. Were performed without the a dministration of intravenous contrast. DLP: 492 mGy-cm FINDINGS: Straightening of the normal curvature of the cervical spine is identified, likely muscular in origin. Significant degenerative disease is identified with osteophyte formation, disc narrowing, endplate ch anges and facet arthropathy. No acute fractures are present within the cervical spine or within the facial bones. Biapical scarring, right greater than left. No soft tissue abnormality is present. The airway is patent. Air-fluid level within the right maxillary sinus. Remaining paranasal sinuses are unremarkable. Impression: Straightening of the normal curvature of the cervical spine, likely muscular in origin. Significant degenerative disease without acute fracture within the cervical spine. Air-fluid level within the right maxillary sinus. Remaining paranasal sinuses are clear. No acute facial bone fracture is present. Reviewed, dictated and finalized at location A. Impression: Straightening of the normal curvature of the cervical spine, likely muscular in origin. Significant degenerative disease without acute fracture within the cervical spi ne. Air-fluid level within the right maxillary sinus. Remaining paranasal sinuses a re clear. No acute facial bone fracture is present.
--- NOTE | ~2025-03-31 | CT_ITS ---
History: Fall PROCEDURE: CT head without contrast. COMPARISON: None TECHNIQUE: Axial imaging of the head performed from the skull base to the vertex without IV contrast. Sagittal a nd coronal reformations obtained. DLP: 605 mGy-cm FINDINGS: The ventricles are enlarged. The dilatation of the ventricles is proportional to the degree of sulcal prominence, not uncommon in the senescent brain. Decreased attenuation is identified within the periventricular white matter, likely secondary to micr ovascular ischemic disease, in a patient of this age. There is no mass, mass effect or midline shift. There is no abnormal extra-axial fluid collection or intracranial hemorrhage. Visualized paranasal sinuses are clear. The mastoid air cells are well aerated. No acute displaced fractures within the overlying cranium. Impression: No acute intracranial hemorrhage or suspicious mass effect. Reviewed, dictated and finalized at location A. Impression: No acute intracranial hemorrhage or suspicious mass effect.
--- NOTE | ~2025-03-31 | XR_ITS ---
EXAMINATION: XR shoulder RT min 2V DATE: 03/31/2025 13:17 INDICATION: Right shoulder injury post fall TECHNIQUE: AP internally and externally rotated, AP oblique externally rotated and transscapular Y vi ews of the right shoulder were obtained. COMPARISON: None FINDINGS: Normal alignment. No fracture.Moderate to severe glenohumeral joint space narrowing with moderate si ze marginal osteophytes along the inferomedial aspect of the humeral head. This osteochondral bodies extending along the long head biceps tendon sheath. Moderate acromioclavicular osteoarthritis. Visual ized portion of the lungs are clear. IMPRESSION: Moderate acromioclavicular and moderate to severe glenohumeral osteoarthritis. No acute osseous abnor mality. Reviewed, dictated and finalized at location A. IMPRESSION: Moderate acromioclavicular and moderate to severe glenohumeral osteoarthritis. No acute osseous abnormality.
[2025-03-31 12:30] VITALS: BP 188/76; PULSE 80; RESP 16; TEMP 37; O2SAT 98
--- OUTSIDE RECORDS SUMMARY | 2025-03-31 12:32 | XMS_ITS | Clinical Summary ---
Author Organization [facility] Address [facility] [place] [address] Care Team Providers Care Food Service Agent Name Role Phone DonallizbethFaith lizama Primary Care Provider [phone]- [phone] Allergies Active Allergy Reactions Criticality Noted Date Comments Celecoxib Nausea And Vomiting 05/17/2019 Clavulanic Acid Rash,Vomiting Medium 04/12/2019 Sulfa (Sulfonamide Antibiotics) Vomiting Low Medications atorvastatin (LIPITOR) 10 mg tabletIndicatio ns:hyperlipidem ia Take 1 tablet (10 mg total) by mouth every morning 02/03/20 22 Active cholecalciferol (VITAMIN D-3) 25 mcg (1,000 unit) tablet Take 1 tablet (1,000 Units total) by mouth every morning Active acetaminophen 500 mg capsuleIndicati ons:Pain Take 2 capsules (1,000 mg total) by mouth every 8 (eight) hours 90 tablet 01/10/20 23 Active meloxicam (MOBIC) 15 mg tabletIndicatio ns:Pain Take 1 tablet (15 mg total) by mouth daily 30 tablet 01/10/20 23 Active amoxicillin 500 mg tablet/capsuleI ndications:Prop hylactic antibiotic TAKE 4 PILLS 1 HOUR BEFORE DENTAL APPOINTMENT. 12 tablet/caps ule 02/03/20 24 Active Additional Information Patient not taking.Reported on 03/24/2025 apixaban (ELIQUIS) 5 mg tabletIndicatio ns:New onset atrial fibrillation (HCC) Take 1 tablet (5 mg total) by mouth 2 (two) times a day 180 tablet 3 12/28/19 25 Active losartan (COZAAR) 100 mg tabletIndicatio ns:Hypertensive heart disease without heart failure TAKE 1 TABLET(100 MG) BY MOUTH DAILY 90 tablet 03/04/20 25 Active carvediloL (COREG) 25 mg tabletIndicatio ns:Hypertensive heart disease without heart failure Take 1 tablet (25 mg total) by mouth 2 (two) times a day with meals 60 tablet 11 03/24/20 25 2025 Active losartan (COZAAR) 100 mg tabletIndicatio ns:Hypertensive heart disease without heart failure Take 1 tablet (100 mg total) by mouth daily 90 tablet 3 03/12/20 24 2024 Discontinued carvediloL (COREG) 12.5 mg tablet Take 1 tablet (12.5 mg total) by mouth 2 (two) times a day with meals 180 tablet 3 09/24/20 24 2024 Discontinued(O ther) Active Problems Problem Noted Date Diagnosed Date Hypertensive heart disease without heart failure 11/12/2023 Class 3 obesity 11/12/2023 WHO group 1 pulmonary arterial hypertension 08/03 Diastolic dysfunction 08/19/2023 Carpal tunnel syndrome, right 08/14/2023 Left hip prosthetic joint infection 01/01/2023 Assessment & Plan (01/07/2023 2:40 PM BEHAVIORAL HEALTH WORKER): Ronald Rivera is a 77 y.o. 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 17 Pseudophakia, both eyes 10/16/2017 Conductive hearing loss of both ears 07/02/2017 Obstructive sleep apnea 02/10/2017 Pulmonary fibrosis 02/10/2017 Overview (04/16/2022): Mild basilar Chronic obstructive [...] Date Vitamin D deficiency, unspecified 01/07/2011 08/19/2023 Encounters Date Type Department Care Team Description 03/25/2025 Results Follow-Up [facility] Cardiology [address] [facility] [address] [place] [address] Silva Mcconnell NP CBC with auto differential, Thyroid Function [place] 03/24/2025 1:30 PM CDT Office Visit [facility] Cardiology [address] [facility] [address] [place] [address] Silva Mcconnell NP Fatigue, unspecified type (Primary Dx); Chronic anticoagulation; Hypertensive heart disease without heart failure; Paroxysmal atrial fibrillation (HCC) from Last 3 Months Immunizations Immunization Administration Dates Next Due Influenza, [...] Comments Arthritis Hypertension Sleep apnea Autoimmune disease PONV (postoperative nausea and vomiting) Reports she stayed overnight in hospital after gallbladder removal [place] 2017 due to N/V Family History Medical History Relation Name Comments Heart disease Brother Sky Brandt Stroke Father Gerald Brandt Stroke Maternal Grandfather Terry Chery Heart attack [facility] [facility] Cause of : Myocardial Infarction Hypertension Mother [...] on file Legal Sex Female 1:42 AM BEHAVIORAL HEALTH WORKER Gender Identity Female 11/01/2022 1:18 PM BEHAVIORAL HEALTH WORKER Sexual Orientation Straight 11/01/2022 1: 18 PM BEHAVIORAL HEALTH WORKER Obstetrics History Last Filed Vital Signs Vital Sign Reading Time Taken Comments Blood Pressure 160/66 03/24/2025 1:35 PM CDT Pulse 75 03/24/2025 1:35 PM CDT Temperature 36.8 C (98.3 F) 12/17/2023 5:18 PM BEHAVIORAL HEALTH WORKER Respiratory Rate 20 12/17/2023 5:18 PM BEHAVIORAL HEALTH WORKER Oxygen Saturation 97% 03/24/2025 1:35 PM CDT Inhaled Oxygen Concentration - - Weight 105.7 kg (233 lb) 03/24/2025 1:35 PM CDT Height 162.6 cm (5' 4) 03/24/2025 1:35 PM CDT Body Mass Index 39.99 03/24/2025 1:35 PM CDT Plan of Treatment Health Maintenance Due Date Last Done Comments Depression Screening 1945 Hepatitis C Screening 1945 Osteoporosis Screening-Bone Density Scan 1945 Hepatitis B Screening 1963 Zoster Vaccine (1 of 2) 1995 Well Visit 65+ 2010 Covid-19 Vaccine (2023-2 5 season) 2024 09/22/2021, 01/04/2021, 11/30/2020 Fall Risk Assessment 09/10/2024 09/10/2023 Influenza Vaccine (Season Ended) 2025 07/22/2022, 09/17/2021, 09/01/2020, Additional history exists DTaP/Tdap/Td Vaccine (2 - Td or Tdap) 03/27/2027 03/27/2017 Pneumococcal vaccine 65+ Completed 05/30/2015, 02/2010 Medical Devices Implanted Type Area Ciaio Counter Molder Device Identifier Shelf Expiration Date Model / Serial / Lot [employer] Shell Acetabular Trident Ii Tritanium D Od50mm Hip 9 Hole Sterile 709-04-50d - Sna - [id number] Implanted:Qty: 1 on 11/07/2022 by Kailash Martinez MD at [facility] Other - see comments Left: Hip [employer] [id number] 12/22/2026 709-04-5 0D / NA / [id number] Description:Implant pause pe rformed. [employer] Insert Trident 0deg 36mm 723-00-36d - Sna - [id number] Implanted:Qty: 1 on 11/07/2022 by Kailash Martinez MD at [facility] Other - see comments Left: Hip [employer] [id number] 09/11/2027 723-00-3 6D / NA / [id number] Description:Implant pause pe rformed. [employer] Stem Insignia Hip Size 4 High Offset 6010-3837 - Sna - [id number] Implanted:Qty: 1 on 11/07/2022 by Kailash Martinez MD at [facility] Other - see comments Left: Hip [employer] [id number] 08/08/2027 7000-660 4 / NA / [id number] Description:Implant pause pe rformed. [employer] V40 36mm Anatomic Hip +2.5mm Offset Taper Head Femoral Biolox 6570-0-536 - Sna - [id number] Implanted:Qty: 1 on 11/07/2022 by Kailash Martinez MD at [facility] Other - see comments Left: Hip [employer] [id number] 07/19/2027 6570-0-5 36 / NA / [id number] Description:Implant pause pe rformed. [employer] Screw Bone Trident Ii L20mm Od6.5mm Low Profile Hexagonal Sterile 8268-3414 - Sna - [id number] Implanted:Qty: 1 on 11/07/2022 by Kailash Martinez MD at [facility] Screw Left: Hip [employer] [id number] 09/29/2027 7030-652 0 / NA / [id number] Description:Implant pause pe rformed. [employer] Screw Bone Trident Ii L30mm Od6.5mm Low Profile Hexagonal Sterile 7917-5411 - Sna - [id number] Implanted:Qty: 1 on 11/07/2022 by Kailash Martinez MD at [facility] Screw Left: Hip [employer] [id number] 09/17/2027 7030-653 0 / NA / [id number] Description:Implant pause pe rformed. Right Hip Replacement Right: Hip [employer] Insert Trident 0deg 36mm 723-00-36d - [id number] Implanted:Qty: 1 on 12/31/2022 by Kailash Martinez MD at [facility] Left: Hip [employer] [id number] 10/17/2027 723-00-3 6D / / [id number] [employer] V40 36mm Anatomic Hip +2.5mm Offset Taper Head Femoral [employer]ox 6570-0-536 - [id number] Implanted:Qty: 1 on 12/31/2022 by Kailash Martinez MD at [facility] Left: Hip [employer] [id number] 10/09/2027 6570-0-5 36 / / [id number] [employer] Stimulan Rapid Cure Kit Paste Motor Builder Winder 10cc 20cc Bone Void 582115 - [id number] Implanted:Qty: 1 on 12/31/2022 by Kailash Martinez MD at [facility] Left: Hip [employer] [id number] 08/02/2025 661960 / / [id number] [employer] V40 36mm Anatomic Hip +5mm Offset Taper Head Femoral [employer]ox Delta 6570-0-236 - [id number] Implanted:Qty: 1 on 12/31/2022 by Kailash Martinez MD at [facility] Left: Hip [employer] [id number] 05/20/2027 6570-0-2 36 / / [id number] Procedures Procedure Name Priority Date/Time Associated Diagnosis Comments THYROID FUNCTION CASCADE Routine 03/24/2025 2:39 PM CDT Fatigue, unspecified type CBC WITH AUTO DIFFERENTIAL Routine 03/24/2025 2:39 PM CDT Chronic anticoagulation LIPID PANEL Routine 03/21/2025 from Last 3 Months Results * Thyroid Function [place] (03/24/2025 2:39 PM CDT) TSH 1.16 0.40 - 4.50 mIU/L [facility] Blood 03/24/2025 2:39 PM CDT 03/24/2025 2:39 PM CDT us Silva Mcconnell NP LAB BLOOD ORDERABLES Myriam chopra Result [facility] [address] [place] [address] * (ABNORMAL) CBC with auto differential (03/24/2025 2:39 PM CDT) WBC 9.6 3.8 - 10.8 Thousand/u L [facility] RBC, POC 4.09 3.80 - 5.10 Million/uL [facility] Hgb 11.9 11.7 - 15.5 g/dL [facility] Hct 37.5 35.0 - 45.0 % [facility] MCV 91.7 80.0 - 100.0 fL [facility] MCH 29.1 27.0 - 33.0 pg [facility] MCHC 31.7(L) 32.0 - 36.0 g/dL [facility] Comment: For adults, a slight decrease in the calculated MCHC value (in the range of 30 to 32 g/dL) is most likely not clinically significant; however, it should be interpreted with caution in correlation with other red cell parameters and the patient's clinical condition. Rdw 13.7 11.0 - 15.0 % [facility] Platelets 346 140 - 400 Thousand/u L [facility] MPV 9.8 7.5 - 12.5 fL [facility] Neutrophils, abs 6,461 1,500 - 7,800 cells/uL [facility] Lymphocytes, abs 1,690 850 - 3,900 cells/uL [facility] Monocyte abs 864 200 - 950 cells/uL [facility] Eosinophils, abs 490 15 - 500 cells/uL [facility] Basophils, abs 96 0 - 200 cells/uL [facility] Neutrophils 67.3 % [facility] Lymphocyte pct 17.6 % [facility] Monocytes 9.0 % [facility] Eosinophils 5.1 % [facility] Basophils 1.0 % [facility] Blood 03/24/2025 2:39 PM CDT 03/24/2025 2:39 PM CDT Silva Mcconnell NP LAB BLOOD ORDERABLES Myriam chopra Result [facility] [address] [place] [address] * Lipid panel (03/21/2025) SCRIBED Cholesterol, Total 134 30 - 199 mg/dL [facility] SCRIBED Triglycerides 104 <=149 mg/dL [facility] SCRIBED HDL 44 >=40 mg/dL [facility] SCRIBED LDL 71 <=129 mg/dL [facility] Scribed Non-HDL Cholesterol 90 NONE mg/dL [facility] SCRIBED Total Cholesterol/HDL Ratio 3 NONE [facility] Blood 03/21/2025 Historical Provider MD LAB BLOOD ORDERABLES Myriam chopra Result [facility] from Last 3 Months Insurance MEDICARE [facility] MEDICARE [facility] MEDICARE BLUE CROSS MEDICARE SUPPLEMENT MEDICARE [facility] Advance Directives For more information, please contact: [phone] * Full Code (Latest Code Status on File) Date Activated Date Inactivated Comments 12/31/2022 9:16 PM 01/09/2023 9:05 PM * Full Code Date Activated Date Inactivated Comments 11/07/2022 4:23 PM 11/08/2022 3:19 PM Care Teams Food Service Agent Relationship Specialty Start Date End Date Faith Shukla DO PCP - General Family Medicine 03/14/22
--- OUTSIDE RECORDS SUMMARY | 2025-03-31 12:32 | XMS_ITS | Encounter Summary ---
Author Organization [facility] Health Address [address] [place] [address] Care Team Providers Care Machine Clerical Verifier Name Role Phone David Pantoja MD Primary Care Provider [phone] Faith Shukla DO Primary Care Provider [phone] Reason for Visit * Reason Onset Date Comments Appointment 05/03/2019 Encounter Details Date Type Department Care Team (Late st Contact Info) Description 05/03/2019 Telephone [facility] [address] [place], [place] [id number] Linda [place] Appointment Social History Tobacco Use Types Packs/Day Years Used Date Smoking Tobacco: Former Cigarettes 0.5 2 1 963 - 11/03/1964 Smokeless Tobacco: Never Alcohol Use Standard Drinks/Week Comments Yes 0 (1 standard drink = 0.6 oz pur e alcohol) Ocassional drink Comments No Sex and Gender Information Value Date Recorded Sex Assigned at Not on file Legal Sex Female 5:13 PM SODA ROOM OPERATOR Gender Identity Not on file Sexual Orientation Not on file Occupation Industry Job Start Date Job End Date retired Not on file Not on file Not on file documented as of this [...] [facility] [address] [place] [address] Nita Lundy, APNP-BOAT ASSEMBLER [address] DIV OF PULMONARY/[place] [address] documented as of this encounter Goals Goal [...] on filedocumented in this encounter Care Teams Machine Clerical Verifier Relationship Specialty Start Date End Date David Pantoja MD [address] [place] [address] PCP - General 04/11/12 05/29/20 Faith Shukla DO [address] [place] [address] PCP - General 05/30/20 documented as of this encounter
--- OUTSIDE RECORDS SUMMARY | 2025-03-31 12:32 | XMS_ITS | Referral Summary ---
Author Organization [facility] Address [address] [place] [address] Care Team Providers Care Glassine Machine Tender Name Role Phone DonallizbethFaith lizama Primary Care Provider [phone] Encounters Date Type Department Care Team Description 03/25/2025 Results Follow-Up [facility] Cardiology [address] [facility] [address] [place] [address] Silva Mcocnnell NP CBC with auto differential, Thyroid Function Bullock 03/24/2025 1:30 PM CDT Office Visit [facility] Cardiology [address] [facility] [address] [place] [address] Silva Mcconnell NP Fatigue, unspecified type (Primary Dx); Chronic anticoagulation; Hypertensive heart disease without heart failure; Paroxysmal atrial fibrillation (HCC) from Last 3 Months Allergies Active Allergy Reactions Criticality Noted Date Comments Celecoxib Nausea And Vomiting 05/17/2019 Clavulanic Acid Rash,Vomiting Medium 04/12/2019 Sulfa (Sulfonamide Antibiotics) Vomiting Low Medications atorvastatin (LIPITOR) 10 mg tabletIndicatio ns:hyperlipidem ia Take 1 tablet (10 mg total) by mouth every morning 02/03/20 Active cholecalciferol (VITAMIN D-3) 25 mcg (1,000 [...] 01/01/2023 Assessment & Plan (01/07/2023 2:40 PM BUSINESS BANKING OFFICER): Ronald Rivera is a 77 y.o. female [...] (12/24/2022): Added automatically from request for surgery [id number] Primary osteoarthritis of left hip 11/07/2022 Abnormal [...] on file Legal Sex Female 1:42 AM BUSINESS BANKING OFFICER Gender Identity Female 11/01/2022 1:18 PM BUSINESS BANKING OFFICER Sexual Orientation Straight 11/01/2022 1: 18 PM BUSINESS BANKING OFFICER Last Filed Vital Signs Vital Sign Reading Time Taken Comments Blood Pressure 160/66 03/24/2025 1:35 PM CDT Pulse 75 03/24/2025 1:35 PM CDT Temperature 36.8 C (98.3 F) 12/17/2023 5:18 PM BUSINESS BANKING OFFICER Respiratory Rate 20 12/17/2023 5:18 PM BUSINESS BANKING OFFICER Oxygen Saturation 97% 03/24/2025 1:35 PM CDT Inhaled Oxygen Concentration - - Weight 105.7 kg (233 lb) 03/24/2025 1:35 PM CDT Height 162.6 cm (5' 4) 03/24/2025 1:35 PM CDT Body Mass Index 39.99 03/24/2025 1:35 PM CDT Plan of Treatment Not on file Medical Devices Implanted Type Area Stone Unloader Device Identifier Shelf Expiration Date Model / Serial / Lot [employer] Shell Acetabular Trident Ii Tritanium D Od50mm Hip 9 Hole Sterile 709-04-50d - Sna - [id number] Implanted:Qty: 1 on 11/07/2022 by Kailash Martinez MD at [facility] Other - see comments Left: Hip [employer] [id number] 12/22/2026 709-04-5 0D / NA / [id number] Description:Implant pause pe rformed. [employer] Insert Trident 0deg 36mm 723-00-36d - Sna - [id number] Implanted:Qty: 1 on 11/07/2022 by Kailash Martinez MD at [facility] Other - see comments Left: Hip [employer] [id number] 09/11/2027 723-00-3 6D / NA / [id number] Description:Implant pause pe rformed. [employer] Stem Insignia Hip Size 4 High Offset 3207-6735 - Sna - [id number] Implanted:Qty: 1 on 11/07/2022 by Kailash Martinez MD at [facility] Other - see comments Left: Hip [employer] [id number] 08/08/2027 7000-660 4 / NA / [id number] Description:Implant pause pe rformed. [employer] V40 36mm Anatomic Hip +2.5mm Offset Taper Head Femoral Biolox 6570-0-536 - Sna - [id number] Implanted:Qty: 1 on 11/07/2022 by Kailash Martinez MD at [facility] Other - see comments Left: Hip [employer] [id number] 07/19/2027 6570-0-5 36 / NA / [id number] Description:Implant pause pe rformed. [employer] Screw Bone Trident Ii L20mm Od6.5mm Low Profile Hexagonal Sterile 4428-2567 - Sna - [id number] Implanted:Qty: 1 on 11/07/2022 by Kailash Martinez MD at [facility] Screw Left: Hip [employer] [id number] 09/29/2027 7030-652 0 / NA / [id number] Description:Implant pause pe rformed. [employer] Screw Bone Trident Ii L30mm Od6.5mm Low Profile Hexagonal Sterile 0735-4368 - Sna - [id number] Implanted:Qty: 1 on 11/07/2022 by Kailash Martinez MD at [facility] Screw Left: Hip [employer] [id number] 09/17/2027 7030-653 0 / NA / [id number] Description:Implant pause pe rformed. Right Hip Replacement Right: Hip [employer] Insert Trident 0deg 36mm 723-00-36d - [id number] Implanted:Qty: 1 on 12/31/2022 by Kailash Martinez MD at [facility] Left: Hip [employer] [id number] 10/17/2027 723-00-3 6D / / [id number] [employer] V40 36mm Anatomic Hip +2.5mm Offset Taper Head Femoral [employer]ox 6570-0-536 - [id number] Implanted:Qty: 1 on 12/31/2022 by Kailash Martinez MD at [facility] Left: Hip [employer] [id number] 10/09/2027 6570-0-5 36 / / [id number] [employer] Stimulan Rapid Cure Kit Paste Classifier Operator 10cc 20cc Bone Void 210565 - [id number] Implanted:Qty: 1 on 12/31/2022 by Kailash Martinez MD at [facility] Left: Hip [employer] [id number] 08/02/2025 116135 / / [id number] [employer] V40 36mm Anatomic Hip +5mm Offset Taper Head Femoral Biolox Delta 6570-0-236 - [id number] Implanted:Qty: 1 on 12/31/2022 by Kailash Martinez MD at [facility] Left: Hip [employer] [id number] 05/20/2027 6570-0-2 36 / / [id number] Procedures Procedure Name Priority Date/Time Associated Diagnosis Comments THYROID FUNCTION CASCADE Routine 03/24/2025 2:39 PM CDT Fatigue, unspecified type CBC WITH AUTO DIFFERENTIAL Routine 03/24/2025 2:39 PM CDT Chronic anticoagulation LIPID PANEL Routine 03/21/2025 from Last 3 Months Results * Thyroid Function Bullock (03/24/2025 2:39 PM CDT) TSH 1.16 0.40 - 4.50 mIU/L [facility] Blood 03/24/2025 2:39 PM CDT 03/24/2025 2:39 PM CDT us Silva Mcconnell BUILDING ENGINEER LAB BLOOD ORDERABLES Myriam l Result [facility] [address] [place] [address] * (ABNORMAL) CBC with auto differential (03/24/2025 [...] BLOOD ORDERABLES Myriam chopra Result [facility] [address] [place] [address] * Lipid panel (03/21/2025) SCRIBED Cholesterol, Total 134 30 - 199 mg/dL [facility] SCRIBED Triglycerides 104 <=149 mg/dL [facility] SCRIBED HDL 44 >=40 mg/dL [facility] SCRIBED LDL 71 <=129 mg/dL [facility] Scribed Non-HDL Cholesterol 90 NONE mg/dL [facility] SCRIBED Total Cholesterol/HDL Ratio 3 NONE [facility] Blood 03/21/2025 Historical Provider LAB BLOOD ORDERABLES Myriam l Result [facility] from Last 3 Months Insurance MEDICARE [facility] MEDICARE [facility] MEDICARE BLUE CROSS MEDICARE SUPPLEMENT MEDICARE [facility] Advance Directives For more information, please contact: [phone] * Full Code (Latest Code Status on File) Date Activated Date Inactivated Comments 12/31/2022 9:16 PM 01/09/2023 9:05 PM * Full Code Date Activated Date Inactivated Comments 11/07/2022 4:23 PM 11/08/2022 3:19 PM Care Teams Glassine Machine Tender Relationship Specialty Start Date End Date Faith Shukla DO PCP - General Family Medicine 03/14/22
--- OUTSIDE RECORDS SUMMARY | 2025-03-31 12:32 | XMS_ITS | Encounter Summary ---
Author Organization [facility] Health Address [address] [place] [address] Care Team Providers Care Mentally Impaired Teacher Name Role Phone Faith Shukla DO Primary Care Provider [phone] Reason for Visit * Reason Onset Date Comments Results 09/19/2020 BMP Encounter Details Date Type Department Care Team (Late Contact Info) Description 09/19/2020 Telephone [facility] [address] [place] [address] [place] [address] [place] [id number] Results (BMP) Social History Tobacco Use Types Packs/Day Years Used Date Smoking Tobacco: Former Cigarettes 0.5 2 1 963 - 11/03/1964 Smokeless Tobacco: Never Alcohol Use Standard Drinks/Week Comments Yes 0 (1 standard drink = 0.6 oz pur e alcohol) Ocassional drink Comments No Sex and Gender Information Value Date Recorded Sex Assigned at Not on file Legal Sex Female 5:13 PM VICE PRESIDENT LENDING Gender Identity Not on file Sexual Orientation Not on file Occupation Industry Job Start Date Job End Date retired Not on file Not on file Not on file documented as of this encounter Plan of Treatment Upcoming Encounters Date Type Department Care Team ([facility] Contact Info) Description 06/30/2025 10:00 AM CDT Office Visit [facility] - Sleep Services [address] [place] [address] Nita Lundy, APNP-CABIN AGENT [address] OF PULMONARY/[place] [address] documented as of this encounter Goals Goal [...] on filedocumented in this encounter Care Teams Mentally Impaired Teacher Relationship Specialty Start Date End Date Faith Shukla DO [address] [place] [address] PCP - General 05/30/20 documented as of this encounter
--- OUTSIDE RECORDS SUMMARY | 2025-03-31 12:32 | XMS_ITS | Encounter Summary ---
Author Organization [facility] Healthcare Address [address] [place] [address] Care Team Providers Care Ruby Software Developer Name Role Phone Faith Shukla DO Primary Care Provider [phone] Encounter Details Date Type Department Care Team (Late st Contact Info) Description 03/25/2025 Results Follow-Up [facility] Cardiology [address] [facility] [address] [place] [address] Silva Mcconnell, OBED [address] [place] [address] CBC with auto differential, Thyroid Function [place] Social History Tobacco Use Types Packs/Day Years Used Date Smoking Tobacco: Former Cigarettes 0.5 1 1 965 - 1260 Smokeless Tobacco: Never Comments:smoked very light f rom age [age] Alcohol Use Standard Drinks/Week Comments [...] on file Legal Sex Female 1:42 AM FUR CUTTING MACHINE OPERATOR Gender Identity Female 11/01/2022 1:18 PM FUR CUTTING MACHINE OPERATOR Sexual Orientation Straight 11/01/2022 1: 18 PM FUR CUTTING MACHINE OPERATOR documented as of this encounter Plan of Treatment Not on file documented as of this encounter Visit Diagnoses Not on filedocumented in this encounter Care Teams Ruby Software Developer Relationship Specialty Start Date End Date Faith Shukla DO PCP - General Family Medicine 03/14/22 documented as of this encounter
--- OUTSIDE RECORDS SUMMARY | 2025-03-31 12:32 | XMS_ITS | Continuity of Care Document ---
Author Organization [facility] Address [address] [place] [address] Phone Care Team Providers Care Ladle Cleaner Name Role Phone Leni OD OD, Juarez Unavailable Unavailabl e Advance Directives Directive Yes / No Effective Date File Name No Information Encounters Encounter Description Practice Location Reason(s) For Visit Diagnoses Date Provider Providers Copied on Encounter [facility], [address], [place], [place], [id number], [place] tel:[phone] [facility] No Information Leni OD Juarez. [address] [place], [place], [address], [place]. tel:[phone] Family History Family Member Type Diagnosis Age At Onset No Information Payers Payer name Insurance type Covered democrat ID Authoriza tion(s) No Information Social History [...]
--- OUTSIDE RECORDS SUMMARY | 2025-03-31 12:32 | XMS_ITS | Clinical Summary ---
Author Organization [facility] Address [address] [address] Care Team Providers Care Timber Framer Helper Name Role Phone Faith Shukla DO Primary Care Provider [phone] Source Comments [facility],non-owned Affiliates and Associated Physician Practices is amultiple site organization consisting of ambulatory clinics and hospital sitesin [place], [place], [place] and [place]. This disclosure is being madepursuant to the Care Everywhere program and may not contain all information available regarding this patient. Last updated 18.[facility] Allergies Active Allergy Reactions Criticality Noted Date Comments Amoxicillin-Pot Clavulanate Rash,Nausea and/or Vomiting High 10/20/2019 Augmentin Nausea and/or Vomiting 03/19/2019 Celecoxib Nausea and/or Vomiting 05/17/2019 Clavulanic Acid Rash,Vomiting Medium 04/12/2019 Sulfa Drugs Nausea and/or Vomiting Low 06/23/2012 Medications * Be aware that medications may not be up to date on this document. Alwaysverify current medications with the patient. meloxicam (MOBIC) 15 MG tablet Take 1 (one) tablet by mouth once daily 3 12/30/19 18 Active atorvastatin (LIPITOR) 10 MG tablet Take 1 (one) tablet by mouth once daily 06/25/20 21 Active Cholecalciferol (VITAMIN D3) 1.25 MG (77483 UT) capsule Take 1 (one) capsule by mouth every 7 days Active hydroxypropyl methylcellulose (Genteal; Genteal Mild To Moderate) 0.3 % ophthalmic solution 1 drop by Ophthalmic route once daily as needed Active carvedilol (Coreg) 6.25 MG tablet Take 1 (one) tablet by mouth every 12 hours 01/24/20 23 Active acetaminophen (Tylenol) 500 MG capsule Take 2 (two) capsules by mouth every 8 hours 01/10/20 23 Active Eliquis 5 MG tablet Take 1 (one) tablet by mouth 2 times daily 01/20/20 24 Active losartan (Cozaar) 100 MG tablet Take 1 (one) tablet by mouth once daily 03/12/20 24 Active Active Problems Problem Noted Date Diagnosed [...] 09/10/2007 Assessment & Plan (12/26/2020 2:39 PM IMAGING AIDE): Per pt report, BP remains above goal. [...] peripheral neuropathy Bilateral carpal tunnel syndrome Immunizations Immunization Administration Dates Next Due INFLUENZA VACCINE, TRIV. [...] Date Recorded PHQ2 TOTAL SCORE 0 03/18/2022 Comments No Sex and Gender Information Value Date Recorded Sex Assigned at Not on file Legal Sex Female 5:13 PM IMAGING AIDE Gender Identity Not on file Sexual Orientation Not on file Occupation Industry Job Start Date Job End Date retired Not on file Not on file Not on file Last Filed Vital Signs [...] 4:00 PM CDT Height 165.1 cm (5' 5) 06/30/2024 4:00 PM CDT Body Mass Index 38.94 06/30/2024 4:00 PM CDT Plan of Treatment Upcoming Encounters Date Type Department Care Team (Late st Contact Info) Description 06/30/2025 10:00 AM CDT Office Visit [facility] Physician Group - Sleep Services [address] [place] [address] Nita Lundy, APNP-HAIR BLENDER [address] OF PULMONARY/[place] [address] Health Maintenance Due Date Last Done Comments BONE DENSITY TESTING 1945 MEDICARE AWV 12 MONTHS 1945 ZOSTER VACCINE (1 of 2) 1995 Respiratory Syncytial Virus (RSV) Vaccine Pt: or over 60 yrs (1 - 1-dose 75+ series) 2020 COVID-19 VACCINE ( season) 2024 09/22/2021, 01/04/2021, 11/30/2020 DEPRESSION SCREENING 11/03/2024 07/17/2022 INFLUENZA VACCINE (Season Ended) 2025 07/22/2022, 09/17/2021, 09/01/2020, Additional history exists DTAP/TDAP/TD VACCINES (2 - Td or Tdap) [...] complete this topic MENINGOCOCCAL (Group B) VACCINE SHARED DECISION-MAKING Aged Out No longer eligible based on patient's age to complete this topic MENINGOCOCCAL GROUPS A/C/Y/W VACCINE Aged Out No longer eligible based on patient's age to complete this topic Goals Goal Patient Goal Type Associated Problems Recent Progress Patient-Stated? Author Safety General On track( 019 2:02 PM CDT) No Nita Anaya RN Note: Expected end date: ONgonig Interventions: Your nurse will assess your risk for falls/injury each visit Use appropriate and safe transfer methods Medication Management General On track( 2:01 PM CDT) No Nita Anaya, JILLIAN Note: Expected end date: Ongoing Interventions: Take all medications as prescribed Let your doctor know right away about any changes in your medications Insurance MEDICARE ANTHEM ANTHEM Advance Directives Documents on File Type Date Recorded Patient Hog Trader Expl anation Advance Directives and Livin g Will 06/15/2015 12:00 AM Care Teams Timber Framer Helper Relationship Specialty Start Date End Date Faith Shukla DO [address] [place] [address] PCP - General 05/30/20
--- NOTE | 2025-03-31 13:36 | ED_ITS ---
HPI - Fall General Chief Complaint: Fall Stated Complaint: fall Time Seen by Provider: 03/31/25 13:36 Focused HPI: This is a 79 year old female that presents to the ER for a fall today. Reports she fell going up the steps. Reports she hit her head on the corner of a brick wall. Reports pain in her right shoulder. Reports she feels like her vision is blurry. Denies vomiting, numbness, weakness. GENERAL: Elderly, well-nourished, and in no acute distress. HEAD: Normocephalic. Contusion over the right cheek CHEST: Clear to auscultation. ?No respiratory distress. HEART: Regular rate and rhythm.? NEURO: ?Alert and oriented x3. Patient screened in triage and initial orders placed.? ?Additional care and disposition to be based upon?diagnostic testing and treatment. Related Data Home Medications ?Medication ?Instructions ?Recorded ?Confirmed ?Last Taken ?Type acetaminophen 500 mg capsule 500 mg PO Q6H PRN 04/20/24 03/02/25 Unknown History apixaban 5 mg tablet (Eliquis) 5 mg PO BID 04/20/24 03/02/25 Unknown History cholecalciferol (vitamin D3) 25 25 mcg PO DAILY 04/20/24 03/02/25 Unknown History mcg (1,000 unit) capsule losartan 100 mg tablet 100 mg PO DAILY 04/20/24 03/02/25 Unknown History carvedilol 12.5 mg tablet 12.5 mg PO BID 12/28/24 03/02/25 Unknown History Allergies Allergy/AdvReac Type Severity Reaction Status Date / Time clavulanic acid (From Allergy nausea and Verified 03/02/25 08:40 Augmentin) vomitting Sulfa (Sulfonamide AdvReac Intermediate sick to Verified 03/02/25 08:40 Antibiotics) her stomach Review of Systems Review of Systems: All systems reviewed & are unremarkable except as noted in HPI and below PMFSH Past Medical History Medical History Mixed connective tissue disease Hypertension Afib Surgical History Surgical History History of hip surgery H/O tubal ligation (1979) H/O: hysterectomy (1987) vaginal H/O cataract extraction 09-03-13, 10-03-13 H/O hernia repair (06/03/15) Hx of cholecystectomy (06/03/15) Family History Family History Mother Hypertension Family history of coronary artery disease Family history of heart disease in male family member before age 55 Father Family history of emphysema Social History Social History Smoking status: Former smoker Smoking end date: 11/03/1965 Alcohol intake: never Substance use: never Do You Feel Safe in your Home?: Yes Lack of Transportation: No Lack of Food: Never True Current Housing: I Have Housing Concerned About Future Housing: No Difficulty Paying Gas/Electric Bills: No Difficulty Paying for Meds: No Currently Unemployed: No Education: Associate Degree Difficulty w/ Childcare or Family Care: No Gender identity (if verbalized by the patient): Female Exam Narrative: GENERAL: Well-appearing, well-nourished, and in no acute distress. HEAD: Normocephalic. Right cheek contusion EYES: PERRLA and EOMI. ENT: Nares clear, no rhinorrhea or epistaxis. Mucous membranes moist. Oropharynx without tonsillar hypertrophy exudate or other lesions. Bilateral TMs pearly anderson non-bulging NECK: Supple. No adenopathy or masses. CHEST: Clear to auscultation. No respiratory distress. No wheezes rales or rhonchi HEART: Regular rate and rhythm. No murmur heard. Normal peripheral pulses. EXTREMITIES: Normal range of motion. No edema. SKIN: Warm, dry, no rash. NEURO: No focal deficits. Alert and oriented x3. CN II-XII grossly intact PSYCH: Normal mood and affect Course Vital Signs Vital signs: Vital Signs Temperature 98.6 F 03/31/25 12:30 Pulse Rate 80 03/31/25 12:30 Respiratory Rate 16 03/31/25 12:30 Blood Pressure 188/76 H 03/31/25 12:30 Pulse Oximetry 98 03/31/25 12:30 Temperature 98.6 F 03/31/25 12:30 Pulse Rate 80 03/31/25 12:30 Respiratory Rate 16 03/31/25 12:30 Blood Pressure 188/76 H 03/31/25 12:30 Pulse Oximetry 98 03/31/25 12:30 MDM - Fall MDM Narrative Medical decision making narrative: Patient Presents to the emergency department after a fall today with head injury. She is neurologically intact. CT brain and cervical spine without acute findings. Also endorsing right shoulder pain. Shoulder x-ray is without acute osseous abnormalities. Patient updated on her workup and agrees with plan of care. She is to follow up with primary provider. She was given warnings to return to the ER Differential Diagnosis Differential diagnosis: Likely compression fracture, concussion without loss of consciousness and other (shoulder sprain, contusion, facial bone fracture) Imaging Data Radiologist's impression: ITS Impressions Head CT 03/31/25 13:18 Impression: No acute intracranial hemorrhage or suspicious mass effect. Head/Cervical Spine/Facial Bones CT 03/31/25 13:48 Impression: Straightening of the normal curvature of the cervical spine, likely muscular in origin. Significant degenerative disease without acute fracture within the cervical spine. Air-fluid level within the right maxillary sinus. Remaining paranasal sinuses are clear. No acute facial bone fracture is present. Shoulder X-Ray 03/31/25 13:49 IMPRESSION: Moderate acromioclavicular and moderate to severe glenohumeral osteoarthritis. No acute osseous abnormality. Critical Care Time Critical Care Time Critical Care Time: No Discharge Plan Discharge Clinical Impression: Head injury, Acute pain of right shoulder Patient Disposition: Home Condition: Stable Instructions: Head Injury (ED) Additional Instructions: Return to the emergency department if you experience fever, chest pain, shortness of breath, abdominal pain with nausea and vomiting, weakness, numbness, or any other symptoms that are concerning to you. Rest. Ice to the area. Over the counter pain medication as needed Follow up with primary care doctor Patient Language: [place] Prescriptions: New lidocaine 5 % adhesive patch,medicated 1 patch topical DAILY Qty: 15 0RF Rx Instructions: leave on most painful area for up to 12 hrs No Action carvedilol 12.5 mg tablet 12.5 mg PO BID losartan 100 mg tablet 100 mg PO DAILY Eliquis 5 mg tablet 5 mg PO BID acetaminophen 500 mg capsule 500 mg PO Q6H PRN cholecalciferol (vitamin D3) 25 mcg (1,000 unit) capsule 25 mcg PO DAILY (DME) CPAP See Rx Instructions .Route .MEDSUPPLY Qty: 1 0RF Rx Instructions: Rx: Resmed AirSense 10 AutoPAP 13-20 cm H2O, CPAP mask/tubing/filters DME: IV & Resp Care meloxicam 15 mg tablet 15 mg PO DAILY Qty: 90 1RF atorvastatin 10 mg tablet 10 mg PO DAILY Qty: 90 1RF Follow-up/Referrals: Faith Shukla DO [Primary Care Provider] -
--- OUTSIDE RECORDS SUMMARY | 2025-03-31 16:16 | XMS_ITS | Encounter Summary ---
Author Organization [facility] Health Address [address] [place] [address] Care Team Providers Care Debone Supervisor Name Role Phone David Pantoja MD Primary Care Provider [phone] Faith Shukla DO Primary Care Provider [phone] Reason for Visit * Reason Onset Date Comments Appointment 05/03/2019 Encounter Details Date Type Department Care Team (Late st Contact Info) Description 05/03/2019 Telephone [facility] [address] [place], [place] [id number] Linda Hampton Appointment Social History Tobacco Use Types Packs/Day Years Used Date Smoking Tobacco: Former Cigarettes 0.5 2 1 963 - 11/03/1964 Smokeless Tobacco: Never Alcohol Use Standard Drinks/Week Comments Yes 0 (1 standard drink = 0.6 oz pur e alcohol) Ocassional drink Comments No Sex and Gender Information Value Date Recorded Sex Assigned at Not on file Legal Sex Female 5:13 PM CNC SPECIALIST Gender Identity Not on file Sexual Orientation [...] [facility] [address] [address] Nita Lundy, APNP-ELEVATOR MECHANIC APPRENTICE [address] DIV OF PULMONARY/[place] [address] documented as of this encounter Goals Goal [...] on filedocumented in this encounter Care Teams Debone Supervisor Relationship Specialty Start Date End Date David Pantoja MD [address] [place] [address] PCP - General 04/11/12 05/29/20 Faith Shukla DO [address] [place] [address] PCP - General 05/30/20 documented as of this encounter
--- OUTSIDE RECORDS SUMMARY | 2025-03-31 16:16 | XMS_ITS | Encounter Summary ---
Author Organization [facility] Healthcare Address [address] [place] [address] Care Team Providers Care Equipment Installation Professional Name Role Phone Faith Shukla DO Primary Care Provider [phone] Encounter Details Date Type Department Care Team (Late st Contact Info) Description 03/25/2025 Results Follow-Up [facility] Medical Group Cardiology [address] [facility] [place] [address] Silva Mcconnell, OBED [address] [place] [address] CBC with auto differential, Thyroid Function [place] Social History Tobacco Use Types Packs/Day Years Used Date Smoking Tobacco: Former Cigarettes 0.5 1 1 965 - 1094 Smokeless Tobacco: Never Comments:smoked very light f [...] on file Legal Sex Female 1:42 AM YARD CLERK Gender Identity Female 11/01/2022 1:18 PM YARD CLERK Sexual Orientation Straight 11/01/2022 1: 18 PM YARD CLERK documented as of this encounter Plan of Treatment Not on file documented as of this encounter Visit Diagnoses Not on filedocumented in this encounter Care Teams Equipment Installation Professional Relationship Specialty Start Date End Date Faith Shukla DO PCP - General Family Medicine 03/14/22 documented as of this encounter
--- OUTSIDE RECORDS SUMMARY | 2025-03-31 16:16 | XMS_ITS | Continuity of Care Document ---
Author Organization [facility] Address [address] [place] [address] Phone Care Team Providers Care Diesel Mechanic Helper Name Role Phone Leni OD OD, Juarez Unavailable Unavailabl e Advance Directives Directive Yes / No Effective Date File Name No Information Encounters Encounter Description Practice Location Reason(s) For Visit Diagnoses Date Provider Providers Copied on Encounter [facility], [address], [place], [place], [id number], [place] tel:[phone] [facility] No Information Leni OD Juarez. [address] [place], [place], [address], [place]. tel:[phone] Family History Family Member Type Diagnosis Age At Onset No Information Payers Payer name Insurance type Covered libertarian ID Authoriza tion(s) No Information Social History [...]
--- OUTSIDE RECORDS SUMMARY | 2025-03-31 16:16 | XMS_ITS | Clinical Summary ---
Author Organization [facility] Address [facility] [place] [address] Care Team Providers Care Chemistry Associate Name Role Phone DonallizbethFaith lizama Primary Care Provider [phone] Allergies Active Allergy Reactions Criticality Noted Date [...] 01/01/2023 Assessment & Plan (01/07/2023 2:40 PM SOLAR ENERGY TECHNICIAN): Ronald Rivera is a 77 y.o. female [...] (12/24/2022): Added automatically from request for surgery [id number] Primary osteoarthritis of left hip 11/07/2022 Abnormal [...] her blood pressure. Follow up with Dr. Waletrs in 3 months. Resolved Problems Problem Noted Date Diagnosed Date Resolved Date Vitamin D deficiency, unspecified 01/07/2011 08/19/2023 Encounters Date Type Department Care Team Description 03/25/2025 Results Follow-Up [facility] Medical Group Cardiology [address] [facility] [address] [place] [address] Silva Mcconnell NP CBC with auto differential, Thyroid Function [place] 03/24/2025 1:30 PM CDT Office Visit [facility] Medical Group Cardiology [address] [facility] [address] [place] [address] Silva Mcconnell NP Fatigue, unspecified type (Primary [...] Heart attack Mother Hetal Brandt [facility]; Cause of : Myocardial Infarction Hypertension Mother [...] on file Legal Sex Female 1:42 AM SOLAR ENERGY TECHNICIAN Gender Identity Female 11/01/2022 1:18 PM SOLAR ENERGY TECHNICIAN Sexual Orientation Straight 11/01/2022 1: 18 PM SOLAR ENERGY TECHNICIAN Obstetrics History Last Filed Vital Signs Vital Sign Reading Time Taken Comments Blood Pressure 160/66 03/24/2025 1:35 PM CDT Pulse 75 03/24/2025 1:35 PM CDT Temperature 36.8 C (98.3 F) 12/17/2023 5:18 PM SOLAR ENERGY TECHNICIAN Respiratory Rate 20 12/17/2023 5:18 PM SOLAR ENERGY TECHNICIAN Oxygen Saturation 97% 03/24/2025 1:35 PM CDT [...] 05/30/2015, 02/2010 Medical Devices Implanted Type Area Lean Six Sigma Black Belt Device Identifier Shelf Expiration Date Model / Serial / Lot [employer] Shell Acetabular Trident Ii Tritanium D Od50mm Hip 9 Hole Sterile 709-04-50d - Sna - [id number] Implanted:Qty: 1 on 11/07/2022 by Kailash Martinez MD at [facility] Other - see comments Left: Hip [employer] [id number] 12/22/2026 709-04-5 0D / NA / [id number] Description:Implant pause pe rformed. [employer] Insert Trident 0deg 36mm 723-00-36d - Sna - [id number] Implanted:Qty: 1 on 11/07/2022 by Kailash Martinez MD at [facility] Other - see comments Left: Hip [employer] [id number] 09/11/2027 723-00-3 6D / NA / [id number] Description:Implant pause pe rformed. [employer] Stem Insignia Hip Size 4 High Offset 5160-4011 - Sna - [id number] Implanted:Qty: 1 on 11/07/2022 by Kailash Martinez MD at [facility] Other - see comments Left: Hip [employer] [id number] 08/08/2027 7000-660 4 / NA / [id number] Description:Implant pause pe rformed. [employer] V40 36mm Anatomic Hip +2.5mm Offset Taper Head Femoral Biolox 6570-0-536 - Sna - [id number] Implanted:Qty: 1 on 11/07/2022 by Kailash Martinez MD at [facility] Other - see comments Left: Hip [employer] [id number] 07/19/2027 6570-0-5 36 / NA / [id number] Description:Implant pause pe rformed. [employer] Screw Bone Trident Ii L20mm Od6.5mm Low Profile Hexagonal Sterile 2397-9171 - Sna - [id number] Implanted:Qty: 1 on 11/07/2022 by Kailash Martinez MD at [facility] Screw Left: Hip [employer] [id number] 09/29/2027 7030-652 0 / NA / [id number] Description:Implant pause pe rformed. [employer] Screw Bone Trident Ii L30mm Od6.5mm Low Profile Hexagonal Sterile 3128-4150 - Sna - [id number] Implanted:Qty: 1 on 11/07/2022 by Kailash Martinez MD at [facility] Screw Left: Hip [employer] [id number] 09/17/2027 7030-653 0 / NA / [id number] Description:Implant pause pe rformed. Right Hip Replacement Right: Hip [employer] Insert Trident 0deg 36mm 723-00-36d - [id number] Implanted:Qty: 1 on 12/31/2022 by Kailash Martinez MD at [facility] Left: Hip [employer] [id number] 10/17/2027 723-00-3 6D / / [id number] [employer] V40 36mm Anatomic Hip +2.5mm Offset Taper Head Femoral Biolox 6570-0-536 - [id number] Implanted:Qty: 1 on 12/31/2022 by Kailash Martinez MD at [facility] Left: Hip [employer] [id number] 10/09/2027 6570-0-5 36 / / [id number] Bi[employer]posites Stimulan Rapid Cure Kit Paste Wind Turbine Design Engineer 10cc 20cc Bone Void 112736 - [id number] Implanted:Qty: 1 on 12/31/2022 by Kailash Martinez MD at [facility] Left: Hip [employer] [id number] 08/02/2025 498916 / / [id number] [employer] V40 36mm Anatomic Hip +5mm Offset Taper Head Femoral Biolox Delta 6570-0-236 - [id number] Implanted:Qty: 1 on 12/31/2022 by Kailash Martinez MD at [facility] Left: Hip [employer] [id number] 05/20/2027 6570-0-2 36 / / [id number] Procedures Procedure Name Priority Date/Time Associated Diagnosis Comments THYROID FUNCTION CASCADE Routine 03/24/2025 2:39 PM CDT Fatigue, unspecified type CBC WITH AUTO DIFFERENTIAL Routine 03/24/2025 2:39 PM CDT Chronic anticoagulation LIPID PANEL Routine 03/21/2025 from Last 3 Months Results * Thyroid Function [place] (03/24/2025 2:39 PM CDT) TSH 1.16 0.40 - 4.50 mIU/L [facility] Blood 03/24/2025 2:39 PM CDT 03/24/2025 2:39 PM CDT us Silva Mcconnell NP LAB BLOOD ORDERABLES Myriam chopra Result [facility] [address] [place] [address] * (ABNORMAL) CBC with auto differential (03/24/2025 [...] BLOOD ORDERABLES Myriam chopra Result [facility] [address] [place] [address] * Lipid panel (03/21/2025) SCRIBED Cholesterol, Total 134 30 - 199 mg/dL [facility] SCRIBED Triglycerides 104 <=149 mg/dL [facility] SCRIBED HDL 44 >=40 mg/dL [facility] SCRIBED LDL 71 <=129 mg/dL [facility] Scribed Non-HDL Cholesterol 90 NONE mg/dL [facility] SCRIBED Total Cholesterol/HDL Ratio 3 NONE [facility] Blood 03/21/2025 Historical Provider MD LAB BLOOD ORDERABLES Myriam chopra Result [facility] from Last 3 Months Insurance MEDICARE [facility] MEDICARE [facility] MEDICARE BLUE CROSS MEDICARE SUPPLEMENT MEDICARE [facility] Advance Directives For more information, please contact: [phone] * Full Code (Latest Code Status on File) Date Activated Date Inactivated Comments 12/31/2022 9:16 PM 01/09/2023 9:05 PM * Full Code Date Activated Date Inactivated Comments 11/07/2022 4:23 PM 11/08/2022 3:19 PM Care Teams Chemistry Associate Relationship Specialty Start Date End Date Faith Shukla DO PCP - General Family Medicine 03/14/22
--- OUTSIDE RECORDS SUMMARY | 2025-03-31 16:16 | XMS_ITS | Clinical Summary ---
Author Organization [facility] Address [address] [place] [address] Care Team Providers Care Upholstery Covers Inspector Name Role Phone Faith Shukla DO Primary Care Provider [phone] Source Comments [facility],non-owned Affiliates and Associated Physician Practices is amultiple site organization consisting of ambulatory clinics and hospital sitesin [place], [place], [place]. This disclosure is being madepursuant to the Care Everywhere program and may not contain all information available regarding this patient. Last updated 18.[facility] Allergies Active Allergy Reactions Criticality Noted Date [...] 21 Active Cholecalciferol (VITAMIN D3) 1.25 MG (95398 UT) capsule Take 1 (one) capsule by [...] 09/10/2007 Assessment & Plan (12/26/2020 2:39 PM MACHINE CHOCOLATE MOLDER): Per pt report, BP remains above goal. [...] on file Legal Sex Female 5:13 PM MACHINE CHOCOLATE MOLDER Gender Identity Not on file Sexual Orientation [...] Description 06/30/2025 10:00 AM CDT Office Visit [facility] - [facility] [address] [place] [address] Nita Lundy, APNP-CLOTH WINDER MACHINE OPERATOR [address] OF PULMONARY/[place] [address] Health Maintenance Due Date Last Done Comments [...] Documents on File Type Date Recorded Patient Paperhanger Contractor Expl anation Advance Directives and Livin g Will 06/15/2015 12:00 AM Care Teams Upholstery Covers Inspector Relationship Specialty Start Date End Date Faith Shukla DO [address] [place] [address] PCP - General 05/30/20
--- OUTSIDE RECORDS SUMMARY | 2025-03-31 16:16 | XMS_ITS | Encounter Summary ---
Author Organization [facility] Health Address [address] [place] [address] Care Team Providers Care Personal Property Appraiser Name Role Phone Faith Shukla DO Primary Care Provider [phone] Reason for Visit * Reason Onset Date Comments Results 09/19/2020 BMP Encounter Details Date Type Department Care Team (Late Contact Info) Description 09/19/2020 Telephone [facility] [address] [place] [address] [place] [address] [place] [address] Results (BMP) Social History Tobacco Use Types Packs/Day Years Used Date Smoking Tobacco: Former Cigarettes 0.5 2 1 963 - 11/03/1964 Smokeless Tobacco: Never Alcohol Use Standard Drinks/Week Comments Yes 0 (1 standard drink = 0.6 oz pur e alcohol) Ocassional drink Comments No Sex and Gender Information Value Date Recorded Sex Assigned at Not on file Legal Sex Female 5:13 PM COBBLER APPRENTICE Gender Identity Not on file Sexual Orientation Not on file Occupation Industry Job Start Date Job End Date retired Not on file Not on file Not on file documented as of this encounter Plan of Treatment Upcoming Encounters Date Type Department Care Team ([facility] Contact Info) Description 06/30/2025 10:00 AM CDT Office Visit [facility] - [facility] Services [address] [place] [address] Nita Lundy, APNP-BSA OFFICER [address] OF PULMONARY/[place] [address] documented as of this encounter Goals Goal [...] on filedocumented in this encounter Care Teams Personal Property Appraiser Relationship Specialty Start Date End Date Faith Shukla DO [address] [place] [address] PCP - General 05/30/20 documented as of this encounter
--- OUTSIDE RECORDS SUMMARY | 2025-03-31 16:16 | XMS_ITS | Referral Summary ---
Author Organization [facility] Address [address] [place] [address] Care Team Providers Care Ui Developer With Angular Js Name Role Phone DonallizbethFaith lizama Primary Care Provider [phone] Encounters Date Type Department Care Team Description 03/25/2025 Results Follow-Up [facility] Medical [facility] Cardiology [address] [facility] [address] [place] [address] Silva Mcconnell NP CBC with auto differential, Thyroid Function [place] 03/24/2025 1:30 PM CDT Office Visit [facility] Medical [facility] Cardiology [address] [facility] [address] [place] [address] Silva Mcconnell NP Fatigue, unspecified [...] 01/01/2023 Assessment & Plan (01/07/2023 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 female [...] (12/24/2022): Added automatically from request for surgery [id number] Primary osteoarthritis of left hip 11/07/2022 Abnormal [...] on file Legal Sex Female 1:42 AM SUPERVISOR MOTOR VEHICLE ASSEMBLY Gender Identity Female 11/01/2022 1:18 PM SUPERVISOR MOTOR VEHICLE ASSEMBLY Sexual Orientation Straight 11/01/2022 1: 18 PM SUPERVISOR MOTOR VEHICLE ASSEMBLY Last Filed Vital Signs Vital Sign Reading Time Taken Comments Blood Pressure 160/66 03/24/2025 1:35 PM CDT Pulse 75 03/24/2025 1:35 PM CDT Temperature 36.8 C (98.3 F) 12/17/2023 5:18 PM SUPERVISOR MOTOR VEHICLE ASSEMBLY Respiratory Rate 20 12/17/2023 5:18 PM SUPERVISOR MOTOR VEHICLE ASSEMBLY Oxygen Saturation 97% 03/24/2025 1:35 PM CDT Inhaled Oxygen Concentration - - Weight 105.7 kg (233 lb) 03/24/2025 1:35 PM CDT Height 162.6 cm (5' 4) 03/24/2025 1:35 PM CDT Body Mass Index 39.99 03/24/2025 1:35 PM CDT Plan of Treatment Not on file Medical Devices Implanted Type Area Supervisor Vendor Quality Device Identifier Shelf Expiration Date Model / Serial / Lot [employer] Shell Acetabular Trident Ii Tritanium D Od50mm Hip 9 Hole Sterile 709-04-50d - Sna - [id number] Implanted:Qty: 1 on 11/07/2022 by Kailash Martinez MD at [facility] Other - see comments Left: Hip [employer] [id number] 12/22/2026 709-04-5 0D / NA / [id number] Description:Implant pause pe rformed. [employer] Insert Trident 0deg 36mm 723-00-36d - Sna - [id number] Implanted:Qty: 1 on 11/07/2022 by Kailash Martinez MD at [facility] Other - see comments Left: Hip [employer] [id number] 09/11/2027 723-00-3 6D / NA / [id number] Description:Implant pause pe rformed. [employer] Stem Insignia Hip Size 4 High Offset 5192-3229 - Sna - [id number] Implanted:Qty: 1 on 11/07/2022 by Kailash Martinez MD at [facility] Other - see comments Left: Hip [employer] [id number] 08/08/2027 7000-660 4 / NA / [id number] Description:Implant pause pe rformed. [employer] V40 36mm Anatomic Hip +2.5mm Offset Taper Head Femoral Biolox 6570-0-536 - Sna - [id number] Implanted:Qty: 1 on 11/07/2022 by Kailash Martinez MD at [facility] Other - see comments Left: Hip [employer] [id number] 07/19/2027 6570-0-5 36 / NA / [id number] Description:Implant pause pe rformed. [employer] Screw Bone Trident Ii L20mm Od6.5mm Low Profile Hexagonal Sterile 4529-6455 - Sna - [id number] Implanted:Qty: 1 on 11/07/2022 by Kailash Martinez MD at [facility] Screw Left: Hip [employer] [id number] 09/29/2027 7030-652 0 / NA / [id number] Description:Implant pause pe rformed. [employer] Screw Bone Trident Ii L30mm Od6.5mm Low Profile Hexagonal Sterile 9037-9914 - Sna - [id number] Implanted:Qty: 1 on 11/07/2022 by Kailash Martinez MD at [facility] Screw Left: Hip [employer] [id number] 09/17/2027 7030-653 0 / NA / [id number] Description:Implant pause pe rformed. Right Hip Replacement Right: Hip [employer] Insert Trident 0deg 36mm 723-00-36d - [id number] Implanted:Qty: 1 on 12/31/2022 by Kailash Martinez MD at [facility] Left: Hip [employer] [id number] 10/17/2027 723-00-3 6D / / [id number] [employer] V40 36mm Anatomic Hip +2.5mm Offset Taper Head Femoral Biolox 6570-0-536 - [id number] Implanted:Qty: 1 on 12/31/2022 by Kailash Martinez MD at [facility] Left: Hip [employer] [id number] 10/09/2027 6570-0-5 36 / / [id number] [employer] Stimulan Rapid Cure Kit Paste Short Piece Handler 10cc 20cc Bone Void 367540 - [id number] Implanted:Qty: 1 on 12/31/2022 by Kailash Martinez MD at [facility] Left: Hip [employer] [id number] 08/02/2025 649884 / / [id number] [employer] V40 36mm Anatomic Hip +5mm Offset Taper Head Femoral Biolox Delta 6570-0-236 - [id number] Implanted:Qty: 1 on 12/31/2022 by Kailash Martinez MD at [facility] Left: Hip [employer] [id number] 05/20/2027 6570-0-2 36 / / [id number] Procedures Procedure Name Priority Date/Time Associated Diagnosis Comments THYROID FUNCTION CASCADE Routine 03/24/2025 2:39 PM CDT Fatigue, unspecified type CBC WITH AUTO DIFFERENTIAL Routine 03/24/2025 2:39 PM CDT Chronic anticoagulation LIPID PANEL Routine 03/21/2025 from Last 3 Months Results * Thyroid Function [place] (03/24/2025 2:39 PM CDT) TSH 1.16 0.40 - 4.50 mIU/L [facility] Blood 03/24/2025 2:39 PM CDT 03/24/2025 2:39 PM CDT us Silva Mcconnell LAB TECHNICIAN LAB BLOOD ORDERABLES Myriam l Result [facility] [address] [place] [address] * (ABNORMAL) CBC with auto differential (03/24/2025 [...] BLOOD ORDERABLES Myriam chopra Result [facility] [address] [place] [address] * Lipid panel (03/21/2025) SCRIBED Cholesterol, Total 134 30 - 199 mg/dL [facility] SCRIBED Triglycerides 104 <=149 mg/dL [facility] SCRIBED HDL 44 >=40 mg/dL [facility] SCRIBED LDL 71 <=129 mg/dL [facility] Scribed Non-HDL Cholesterol 90 NONE mg/dL [facility] SCRIBED Total Cholesterol/HDL Ratio 3 NONE [facility] Blood 03/21/2025 Historical Provider LAB BLOOD ORDERABLES Myriam l Result [facility] from Last 3 Months Insurance MEDICARE [employer] MEDICARE [facility] MEDICARE BLUE CROSS MEDICARE SUPPLEMENT MEDICARE [facility] Advance Directives For more information, please contact: [phone] * Full Code (Latest Code Status on File) Date Activated Date Inactivated Comments 12/31/2022 9:16 PM 01/09/2023 9:05 PM * Full Code Date Activated Date Inactivated Comments 11/07/2022 4:23 PM 11/08/2022 3:19 PM Care Teams Ui Developer With Angular Js Relationship Specialty Start Date End Date Faith Shukla DO PCP - General Family Medicine 03/14/22
== END 2025-03-31 17:09 | disposition home or self-care (01) ==
LOC: ANHED 16:14
PROVIDERS: Emergency Provider Physician Assistant; PCP Family Medicine
DX: S00.83XA Contusion of other part of head, initial encounter (principal); S49.91XA Unspecified injury of right shoulder and upper arm, initial encounter; I10 Essential (primary) hypertension; I48.91 Unspecified atrial fibrillation; M35.1 Other overlap syndromes; Z90.710 Acquired absence of both cervix and uterus; Z79.01 Long term (current) use of anticoagulants; Z79.899 Other long term (current) drug therapy; M19.011 Primary osteoarthritis, right shoulder; W10.9XXA Fall (on) (from) unspecified stairs and steps, initial encounter
CPT/HCPCS: 70450; 70486; 72125; 73030; 99284

== ENCOUNTER 2025-09-13 13:59 | Outpatient (CLI) | payer MEDICARE, SELFPAY ==
--- NOTE | ~2025-09-13 | MM_ITS ---
EXAMINATION: MM screening freddy BI w cameron HISTORY: Screening TECHNIQUE: Craniocaudal and mediolateral oblique 3-D tomosynthesis images were obtained and synthetic 2-D images were generated. CAD analysis was submitted and interpreted. COMPARISON: Comparison to multiple prior studies sequentially, with oldest reviewed study dated 04/09/2017. BREAST PARENCHYMAL COMPOSITION: Not dense: There are scattered areas of fibroglandular density. FINDINGS: There is a mass in the upper outer quadrant of the right breast with eggshell calcification. There are also developing internal pleomorphic calcifications extending into the adjacent soft tissues. The left breast is stable without evidence for malignancy. IMPRESSION: 1. Chronic mass upper outer quadrant of the right breast with new developing pleomorphic calcifications along the margin. 2. Additional mammographic views and possible breast ultrasound are recommended. BI-RADS Category 0: Incomplete: Needs additional imaging evaluation. Reviewed, dictated and finalized at location B. A ACCOUNT EXECUTIVE IMPRESSION: 1. Chronic mass upper outer quadrant of the right breast with new developing pl eomorphic calcifications along the margin. 2. Additional mammographic views and possible breast ultrasound are recommended . BI-RADS Category 0: Incomplete: Needs additional imaging evaluation.
--- NOTE | ~2025-09-13 | DEXA_ITS ---
Bone Density Report Name: KANCHAN BUTLER Age: 80 Sex: Female Ethnicity: White Date of : 1945 Indication: postmenopausal; screening for osteoporosis; parental hip fracture; height loss; hysterectomy; Referring Provider: ABBY GRAVES Study: Bone densitometry was performed. Exam Date: September 13, 2025 Accession number: [id number] Bone Density: Region BMD T-score Z-score Classification AP Spine(L1-L4) 1.333 2.6 5.3 Normal World Health Organization criteria for BMD impression classify patients as: Normal (T-score at or above -1.0), Osteopenia (T-score between -1.0 and -2.5), or Osteoporosis (T-score at or below -2.5). Previous Exams: Region Exam Age BMD T-score BMD Change BMD Change Date g/cm2 vs Baseline vs Previous AP Spine (L1-L4) 09/13/2025 80 1.333 2.6 0.186 (16.2%)# 0.186 (16.2%)# 06/22/2013 68 1.147 0.9 *Denotes significance at 95% confidence level, LSC for AP Spine = 0.022 g/cm2 # Denotes dissimilar scan types or analysis methods Clinical Information Provided by Patient: Parent has had a hip fracture Has the following medical conditions: Hysterectomy Patient maximum height was 65 No regular weight bearing exercise Drinks caffeinated beverages Onset of menses at age 14 Number of children 2 Impression: The patient has normal bone mass. The patient has risk factors, including: parental hip fracture. No significant bone loss was observed. Discussion: LOW RISK OF FRACTURE; BONE DENSITY IS WELL ABOVE THE MINIMUM DESIRABLE LEVEL AND ABOVE AVERAGE FOR AGE AND SEX AT ALL SKELETAL SITES TESTED. This person's bone density is above expected limits for age and sex. This is rarely clinically significant, but should be pursued if there are significant musculoskeletal complaints. The patient should follow a healthful lifestyle (good nutrition with adequate calcium and vitamin D, and appropriate weight-bearing exercise). Follow-Up: Consider repeating this study in 5 years or sooner if there is some new clinical indication. Reported by: ALVIN on 09/13/2025 2:41:00 PM. Reviewed, dictated and finalized at location A.
--- OUTSIDE RECORDS SUMMARY | 2025-09-13 14:07 | XMS_ITS | Clinical Summary ---
Author Organization [facility] [employer] Address [address] [place] [address] Care Team Providers Care Director Appointment Name Role Phone Faith Shukla DO Primary Care Provider [phone] Source Comments [facility] [employer],non-owned Affiliates and Associated Physician Practices is amultiple site organization consisting of ambulatory clinics and hospital sitesin [place], [place], [place] and [place]. This disclosure is being madepursuant to the Care Everywhere program and may not contain all information available regarding this patient. Last updated 18.[facility] [employer] Allergies Active Allergy Reactions Criticality Noted Date [...] 21 Active Cholecalciferol (VITAMIN D3) 1.25 MG (58118 UT) capsule Take 1 (one) capsule by [...] 09/10/2007 Assessment & Plan (12/26/2020 2:39 PM RESIDENTIAL SUPERVISOR): Per pt report, BP remains above goal. [...] Idiopathic peripheral neuropathy Bilateral carpal tunnel syndrome Encounters Date Type Department Care Team Description 06/24/2025 Telephone [facility] - Rheumatology [address] [place] [phone] Xavier Alfred MD LABS ONLY 06/24/2025 Orders Only [facility] - [facility]ology [address] [place] [phone] Xavier Alfred MD MCTD (mixed connective tissue disease) ([facility]) 06/23/2025 Telephone [facility] - Rheumatology [address] [place] [phone] Xavier Alfred MD LABS ONLY from Last 3 Months Immunizations Immunization Administration Dates Next Due INFLUENZA [...] on file Legal Sex Female 5:13 PM RESIDENTIAL SUPERVISOR Gender Identity Not on file Sexual Orientation [...] Care Team (Late st Contact Info) Description 10/10/2025 1:40 PM RESIDENTIAL SUPERVISOR Office Visit [facility] - Rheumatology [address] [facility] [place] [address] Xavier Alfred MD [address] [facility] [address] [facility] [place] [address] Health Maintenance Due Date Last Done Comments BONE DENSITY TESTING 1945 MEDICARE AWV 12 MONTHS 1945 ZOSTER VACCINE (1 of 2) 1995 Respiratory Syncytial Virus (RSV) Vaccine Pt: or over 60 yrs (1 - 1-dose 75+ series) 2020 DEPRESSION SCREENING 11/03/2024 07/17/2022 COVID-19 VACCINE ( season) 2025 09/22/2021, 01/04/2021, 11/30/2020 INFLUENZA VACCINE (#1) 2025 2, 09/17/2021, 09/01/2020, Additional history exists DTAP/TDAP/TD VACCINES [...] General On track( 019 2:01 PM CDT) No Nita Anaya RN Note: Expected end date: Ongoing Interventions: Take all medications as prescribed Let your doctor know right away about any changes in your medications Procedures Procedure Name Priority Date/Time Associated Diagnosis Comments SCLEROSIS 12 ANTIBODY PNL Routine 06/29/2025 9:12 AM CDT MCTD (mixed connective tissue disease) (HCC) LUZ PANEL COMPREHENSIVE Routine 06/29/2025 9:12 AM CDT MCTD (mixed connective tissue disease) ([facility]) URINALYSIS W/MICROSCOPIC NO CULTURE Routine 06/29/2025 9:12 AM CDT MCTD (mixed connective tissue disease) (HCC) ERYTHROCYTE SEDIMENTATION RATE Routine 06/29/2025 9:12 AM CDT MCTD (mixed connective tissue disease) (HCC) C-REACTIVE PROTEIN Routine 06/29/2025 9: 12 AM CDT MCTD (mixed connective tissue disease) ([facility]) COMPREHENSIVE METABOLIC PANEL Routine 06/29/2025 9:12 AM CDT MCTD (mixed connective tissue disease) (HCC) CK BLOOD Routine 06/29/2025 9:12 AM CDT MCTD (mixed connective tissue disease) (HCC) CBC W/O DIFFERENTIAL Routine 06/29/2025 9:12 AM CDT MCTD (mixed connective tissue disease) ([facility]) ALDOLASE Routine 06/29/2025 9:12 AM CDT MCTD (mixed connective tissue disease) (HCC) from Last 3 Months Results * (ABNORMAL) SCLEROSIS 12 ANTIBODY PNL (06/29/2025 9:12 AM CDT) SCL-70 <11 <11 SI [facility] Centromere protein A Antibody <11 <11 SI [facility] Centromere protein B Antibody <11 <11 [facility] RP11 <11 <11 [facility] RP11 <11 <11 [facility] U1 small nuclear ribonucleoprotein A Antibody 60(H) <11 SI [facility] U1 small nuclear ribonucleoprotein C Antibody <11 <11 [facility] U1 small nuclear ribonucleoprotein 70kD Antibody <11 <11 SI [facility] Fibrillarin <11 <11 [facility] TH/TO <11 <11 [facility] PM/SCL 100 <11 <11 [facility] PM/SCL 75 <11 <11 [facility] Comment: The [place] [employer] (ACR) considers anti-Scl-70 (also [...] patients and anti-RP155 antibodies in about 8%. Bcmx-I5-veARV antibodies are associated with SSc and inflammatory myopathy overlap syndromes. Three major components of U1-snRNP are tested: U1-snRNP LEASING ASSOCIATE A, U1-snRNP LEASING ASSOCIATE C, U1-snRNP LAM86td. The presence of U1-snRNP antibodies occur in [...] Fibrillarin antibodies are found more frequently in -[place] patients and when seen in this population, [...] is directed to one of two proteins: PM/Buu103 and/or PM/Scl75. More information can be found at https://www.[employer]/testcenter/testguide.action ?dc=CF-SystScler This test was developed and its analytical performance characteristics have been determined by [employer]. It has not been cleared or approved by the FDA. This assay has been validated pursuant to the CLIA regulations and is used for clinical purposes. Test Performed at: [facility] [address] [place] [address] PADMINI ANDERSON MD,PHD,ERNIE Blood BLOOD SPECIMEN / Unknown 06/29/2025 9:12 AM CDT 06/29/2025 9:13 AM CDT us Xavier Alrfed MD LAB - SEROLOGY ORDERABLES Final Result [facility] [address] [place] [address] * URINALYSIS W/MICROSCOPIC NO CULTURE (06/29/2025 9:12 AM CDT) Color UA YELLOW YELLOW [facility] Appearance CLEAR CLEAR [facility] Specific [place] UA 1.007 1.001 - 1.035 [facility] pH UA 6.0 5.0 - 8.0 [facility] Glucose UA NEGATIVE NEGATIVE [facility] Bilirubin UA NEGATIVE NEGATIVE [facility] Ketone UA NEGATIVE NEGATIVE [facility] Blood UA NEGATIVE NEGATIVE [facility] Protein UA NEGATIVE NEGATIVE [facility] Nitrite UA NEGATIVE NEGATIVE [facility] Leukocyte UA NEGATIVE NEGATIVE [facility] WBC UA NONE SEEN < OR = 5 /HPF [facility] RBC UA NONE SEEN < OR = 2 /HPF [facility] Epithelial Cell UA NONE SEEN < OR = 5 /HPF [facility] Transitional Epithelial Cells [facility] Renal Epithelial Cells [facility] Bacteria UA NONE SEEN NONE SEEN /HPF [facility] Calcium Oxalate Crystals [facility] Triple Phosphate Crystals [facility] Uric Acid Crystals [facility] Amorphous UA [facility] Crystals UA [facility] Hyaline Casts NONE SEEN NONE SEEN /LPF [facility] Granular Casts [facility] Casts UA [facility] Yeast [facility] Comments [facility] Note See Below [facility] Comment: This urine was analyzed for the presence of WBC, RBC, bacteria, casts, and other formed elements. Only those elements seen were reported. Test Performed at: [employer] [address] [place] [address] JACOBO PUTNAM MD Urine URINE SPECIMEN OBTAINED BY CLEAN CATCH PROCEDURE / Unknown 06/29/2025 9:12 AM CDT 06/29/2025 9:13 AM CDT Xavier Alfred MD LAB - URINALYSIS ORDERABLES Myriam chopra Result [facility] [address] [place] [address] * LUZ PANEL COMPREHENSIVE (06/29/2025 9:12 AM CDT) LUZ Screen NEGATIVE NEGATIVE [facility] Comment: LUZ [...] AC-0: Negative International Consensus on LUZ Patterns (https://doi.org/10.1515/pnne-2070-9682) For additional information, please refer to http://education.[employer]/faq/RAZ692 (This link is being provided for informational/ educational purposes only.) Test Performed at: [facility] [address] [place] [address] JACOBO PUTNAM MD dsDNA Antibody <1 IU/mL [facility] Comment: IU/mL Interpretation < or = 4 Negative 5-9 Indeterminate > or = 10 Positive SCL-70 Antibody <1.0 NEG <1.0 NEG AI [facility] SM Antibody <1.0 NEG <1.0 NEG AI [facility] SM/LEASING ASSOCIATE Antibody <1.0 NEG <1.0 NEG AI [facility] Sjogren's Antibodies (SSA) <1.0 NEG <1.0 NEG AI [facility] Sjogren's Antibodies (SSB) <1.0 NEG <1.0 NEG AI [facility] Comment: Test Performed at: [facility] [address] [place] [address] JACOBO PUTNAM MD Blood BLOOD SPECIMEN / Unknown 06/29/2025 9:12 AM CDT 06/29/2025 9:13 AM CDT us Xavier Alfred MD LAB - SEROLOGY ORDERABLES Final Result Performing Organization Address [facility] Co de Phone Number [facility] [phone] [place] [address] * C-REACTIVE PROTEIN (06/29/2025 9:12 AM CDT) C-Reactive Protein <3.0 <8.0 mg/L [facility] Comment: Test Performed at: [facility] [address] [place] [address] JACOBO PUTNAM MD Blood BLOOD SPECIMEN / Unknown 06/29/2025 9:12 AM CDT 06/29/2025 9:13 AM CDT us Xavier Aflred MD LAB - CHEMISTRY ORDERABLES Final Result Performing Organization Address [facility] [place] [address] * ALDOLASE (06/29/2025 9:12 AM CDT) Aldolase 3.7 < OR = 8.1 U/L [facility] Comment: Test Performed at: [place] [address] JACOBO PUTNAM MD Blood BLOOD SPECIMEN / Unknown 06/29/2025 9:12 AM CDT 06/29/2025 9:13 AM CDT us Xavier Alfred MD LAB - CHEMISTRY ORDERABLES Final Result Performing Organization Address [facility] [place] [address] * ERYTHROCYTE SEDIMENTATION RATE (06/29/2025 9:12 AM CDT) Pathologist [facility] Erythrocyte Sedimentation Rate Westergren 22 < OR = 30 mm/h [facility] Comment: Test Performed at: [facility] [address] [place] [place] [address] JACOBO PUTNAM MD Blood BLOOD SPECIMEN / Unknown 06/29/2025 9:12 AM CDT 06/29/2025 9:13 AM CDT Xavier Alfred MD LAB - HEMATOLOGY ORDERABLES Myriam l Result Performing Organization Address City[facility] Co de Phone Number [facility] [address] [place] [address] * CBC W/O DIFFERENTIAL (06/29/2025 9:12 AM CDT) [facility] White Blood Cell Count 9.2 3.8 - 10.8 Thousand/u L [facility] RBC 4.16 3.80 - 5.10 Million/uL [facility] Hemoglobin 12.3 11.7 - 15.5 g/dL [facility] Hematocrit 38.2 35.0 - 45.0 % [facility] MCV 91.8 80.0 - 100.0 fL [facility] MCH 29.6 27.0 - 33.0 pg [facility] MCHC 32.2 32.0 - 36.0 g/dL [facility] Comment: For adults, a slight decrease in the calculated MCHC value (in the range of 30 to 32 g/dL) is most likely not clinically significant; however, it should be interpreted with caution in correlation with other red cell parameters and the patient's clinical condition. RDW 12.1 11.0 - 15.0 % [facility] Platelet Count 311 140 - 400 Thousand/u L [facility] MPV 9.5 7.5 - 12.5 fL [facility] Comment: Test Performed at: [facility] [address] [place] [address] JACOBO PUTNAM MD Blood BLOOD SPECIMEN / Unknown 06/29/2025 9:12 AM CDT 06/29/2025 9:13 AM CDT us Xavier Alfred MD LAB - HEMATOLOGY ORDERABLES Myriam l Result [facility] [address] [place] [id number] * COMPREHENSIVE METABOLIC PANEL (06/29/2025 9:12 AM CDT) Glucose 95 65 - 99 mg/dL [facility] Comment: Fasting reference interval BUN 19 7 - 25 mg/dL [facility] Creatinine 0.91 0.60 - 0.95 mg/dL [facility] eGFR by Cystatin C 64 > OR = 60 mL/min/1. 73m2 [facility] BUN/Creatinine Ratio SEE NOTE: 6 - 22 (calc) [facility] Comment: Not Reported: BUN and Creatinine are within reference range. Sodium 138 135 - 146 mmol/L [facility] Potassium 4.3 3.5 - 5.3 mmol/L [facility] Chloride 107 98 - 110 mmol/L [facility] CO2 23 20 - 32 mmol/L [facility] Calcium 9.3 8.6 - 10.4 mg/dL [facility] Protein Total 7.0 6.1 - 8.1 g/dL [facility] Albumin 4.4 3.6 - 5.1 g/dL [facility] Globulin Total 2.6 1.9 - 3.7 g/dL (calc) [facility] Albumin/Globulin Ratio 1.7 1.0 - 2.5 (calc) [facility] Bilirubin Total 0.6 0.2 - 1.2 mg/dL [facility] Alkaline Phosphatase 105 37 - 153 U/L [facility] AST 15 10 - 35 U/L [facility] ALT 12 6 - 29 U/L [facility] Comment: Test Performed at: [facility] [employer] [address] JACOBO PUTNAM MD Blood BLOOD SPECIMEN / Unknown 06/29/2025 9:12 AM CDT 06/29/2025 9:13 AM CDT Xavier Alfred MD LAB - CHEMISTRY ORDERABLES Final Result [facility] [address] [place] [id number] * CK BLOOD (06/29/2025 9:12 AM CDT) CK 71 16 - 215 U/L [facility] Comment: Test Performed at: [facility] [employer] [address] JACOBO PUTNAM MD Blood BLOOD SPECIMEN / Unknown 06/29/2025 9:12 AM CDT 06/29/2025 9:13 AM CDT Xavier Alfred MD LAB - CHEMISTRY ORDERABLES Final Result [facility] [address] [place] [address] from Last 3 Months Insurance MEDICARE [facility] Advance Directives Documents on File Type Date Recorded Patient Small Offset Printer Expl anation Advance Directives and Livin g Will 06/15/2015 12:00 AM Care Teams Director Appointment Relationship Specialty Start Date End Date WendyaldaFaith DO [address] [place] [address] PCP - General 05/30/20
--- OUTSIDE RECORDS SUMMARY | 2025-09-13 14:07 | XMS_ITS | Encounter Summary ---
Author Organization [facility] Address [address] [place] [address] Care Team Providers Care Client Application Support Specialist Name Role Phone Faith Shukla DO Primary Care Provider [phone] Reason for Visit * Reason Onset Date Comments Results 09/19/2020 BMP Encounter Details Date Type Department Care Team (Late Contact Info) Description 09/19/2020 Telephone [facility] [address] [place] [address] Keagan Swan MD [address] [place] [address] Results (BMP) Social History Tobacco Use Types Packs/Day Years Used Date Smoking Tobacco: Former Cigarettes 0.5 2 1 963 - 11/03/1964 Smokeless Tobacco: Never Alcohol Use Standard Drinks/Week Comments Yes 0 (1 standard drink = 0.6 oz pur e alcohol) Ocassional drink Comments No Sex and Gender Information Value Date Recorded Sex Assigned at Not on file Legal Sex 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 Gender Identity Not on file Sexual Orientation Not on file Occupation Industry Job Start Date Job End Date retired Not on file Not on file Not on file documented as of this encounter Plan of Treatment Upcoming Encounters Date Type Department Care Team ([facility] Contact Info) Description 10/10/2025 1:40 PM TOOLING ENGINEERING TECH Office Visit [facility] - Rheumatology [address] [place] [phone] Xavier Alfred MD [address] [place] [phone] documented as of this encounter Goals Goal [...] on filedocumented in this encounter Care Teams Client Application Support Specialist Relationship Specialty Start Date End Date Faith Shukla DO [address] [place] [address] PCP - General 05/30/20 documented as of this encounter
--- OUTSIDE RECORDS SUMMARY | 2025-09-13 14:07 | XMS_ITS | Encounter Summary ---
Author Organization [facility] Health Address [address] [facility] [place] [address] Care Team Providers Care Gift Shop Manager Name Role Phone David Pantoja MD Primary Care Provider [phone] Faith Shukla DO Primary Care Provider [phone] Reason for Visit * Reason Onset Date Comments Appointment 05/03/2019 Encounter Details Date Type Department Care Team (Late st Contact Info) Description 05/03/2019 Telephone [facility] [address] [place], [place] [id number] Linda Hampton Appointment Social History Tobacco Use Types Packs/Day Years Used Date Smoking Tobacco: Former Cigarettes 0.5 2 1 963 - 11/03/1964 Smokeless Tobacco: Never Alcohol Use Standard Drinks/Week Comments Yes 0 (1 standard drink = 0.6 oz pur e alcohol) Ocassional drink Comments No Sex and Gender Information Value Date Recorded Sex Assigned at Not on file 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 Gender Identity Not on file Sexual [...] st Contact Info) Description 10/10/2025 1:40 PM MINER OPERATOR Office Visit [facility] - Rheumatology [address] [facility], [place] [phone] Xavier Alfred MD [address] [facility] [address] [place] [address] documented as of this encounter Goals Goal [...] on filedocumented in this encounter Care Teams Gift Shop Manager Relationship Specialty Start Date End Date David Pantoja MD [address] [place] [address] PCP - General 04/11/12 05/29/20 Faith Shukla DO [address] [place] [address] PCP - General 05/30/20 documented as of this encounter
--- OUTSIDE RECORDS SUMMARY | 2025-09-13 14:07 | XMS_ITS | Clinical Summary ---
Author Organization [facility] Address [address] [place] [address] Care Team Providers Care Cartridge Belt Puncher Name Role Phone David Pantoja MD Primary Care Provider [phone] Social History Tobacco Use Types Packs/Day Years [...] 11:33 AM CDT Height 162.6 cm (5' 4) 04/02/2013 11:33 AM CDT Body Mass Index 37.08 04/02/2013 11:33 AM CDT Plan of Treatment Health Maintenance Due Date Last Done Comments DTaP, Tdap and Td Vaccines ( 1 - Tdap) 1964 Pneumococcal Vaccine: 50+ Ye ars (1 of 1 - PCV) 1995 Zoster Vaccines (1 of 2) 1995 Dexa Scan (General) 2010 RSV Immunization or 60+ Years (1 - 1-dose 75+ series) 2020 COVID-19 Vaccine ( - 2024-2 6 season) 2025 Influenza Adult (#1) 2025 Hepatitis A Vaccines Aged Out No long er eligible based on patient's age to complete this topic Meningococcal B Vaccine Aged Out No l onger eligible based on patient's age to complete this topic Meningococcal Vaccine Aged Out No michelle stuart eligible based on patient's age to complete this topic RSV Immunizations Under 20 Months Aged Out No longer eligible based on patient's age to complete this topic Care Teams Cartridge Belt Puncher Relationship Specialty Start Date End Date David Pantoja MD [address] [place] [address] PCP - General 11/06/15
--- OUTSIDE RECORDS SUMMARY | 2025-09-13 14:07 | XMS_ITS | Clinical Summary ---
Author Organization [facility] Address [address] [place] [address] Care Team Providers Care Conflict Resolution Professional Name Role Phone DonallizbethFaith lizama Primary Care Provider [phone] Allergies Active Allergy Reactions Criticality Noted Date Comments Celecoxib Nausea And Vomiting 05/17/2019 Clavulanic Acid Rash,Vomiting Medium 04/12/2019 Sulfa (Sulfonamide Antibiotics) Vomiting Low Medications cholecalciferol (VITAMIN D-3) 25 mcg (1,000 unit) tablet Take 1 tablet (1,000 Units total) by mouth every morning Active acetaminophen 500 mg capsuleIndicatio ns:Pain Take 2 capsules (1,000 mg total) by mouth every 8 (eight) hours 90 tablet 01/10/20 23 Active meloxicam (MOBIC) 15 mg tabletIndication s:Pain Take 1 tablet (15 mg total) by mouth daily 30 tablet 01/10/20 23 Active apixaban (ELIQUIS) 5 mg tabletIndication s:New onset atrial fibrillation (HCC) Take 1 tablet (5 mg total) by mouth 2 (two) times a day 180 tablet 3 12/28/19 25 Active carvediloL (COREG) 25 mg tabletIndication s:Hypertensive heart disease without heart failure Take 1 tablet (25 mg total) by mouth 2 (two) times a day with meals 60 tablet 11 03/24/20 25 026 Active losartan (COZAAR) 100 mg tabletIndication s:Hypertensive heart disease without heart failure TAKE 1 TABLET(100 MG) BY MOUTH DAILY 90 tablet 3 08/31/20 25 Active amLODIPine (NORVASC) 5 mg tablet Take 1 tablet (5 mg total) by mouth daily 30 tablet 2 08/31/20 25 026 Active atorvastatin (LIPITOR) 10 mg tabletIndication s:hyperlipidemia Take 1 tablet (10 mg total) by mouth every morning 02/03/20 22 025 Discontinued(Flaco walls Reported) amoxicillin 500 mg tablet/capsuleIn dications:Prophy lactic antibiotic TAKE 4 PILLS 1 HOUR BEFORE DENTAL APPOINTMENT . 12 tablet/caps ule 02/03/20 24 025 Discontinued(Flaco walls Reported) losartan (COZAAR) 100 mg tabletIndication s:Hypertensive heart disease without heart failure TAKE 1 TABLET(100 MG) BY MOUTH DAILY 90 tablet 06/06/20 25 025 Discontinued Active Problems Problem Noted Date Diagnosed Date Hypertensive heart disease without heart failure 11/12/2023 Class 3 obesity 11/12/2023 WHO group 1 pulmonary arterial hypertension 08/03 Diastolic dysfunction 08/19/2023 Carpal tunnel syndrome, right 08/14/2023 Left hip prosthetic joint infection 01/01/2023 Assessment & Plan (01/07/2023 2:40 PM [employer]): Kanchan Rivera is a 77 y.o. female with [...] (12/24/2022): Added automatically from request for surgery [id number] Primary osteoarthritis of left hip 11/07/2022 Abnormal [...] Encounters Date Type Department Care Team Description 09/07/2025 Results Follow-Up [facility] Cardiology [address] [place] [address] [place] [phone] Silva Montiel NP US Vein Duplex Lower Extremity Right Limited, Unilateral 09/05/2025 3:00 PM [employer] Ancillary Procedure [facility] Vascular and Vein Surgery at [address] [place] [address] Pain in right leg 09/05/2025 Telephone [facility] Vascular and Vein Surgery at [address] [place] [address] Nataliia Lazcano RDMS 09/01/2025 Telephone [facility] Cardiology [address] [place] [address] [address] [place] [phone] Silva Montiel NP 08/31/2025 Orders Only [facility] Cardiology [address] [place] [address] [address] [place] [phone] Genie Zavaleta MA 08/30/2025 1:00 PM CDT Procedure visit [facility] Cardiology [address] [place] [address] Essential (primary) hypertension (Primary Dx) 08/16/2025 1:30 PM CDT Office Visit [facility] Medical [facility] Cardiology [address] [place] [address] Silva Montiel NP Hypertensive heart disease without heart failure (Primary Dx); MCTD (mixed connective tissue disease); Paroxysmal atrial fibrillation (HCC); Chronic anticoagulation 06/23/2025 [facility] ED Outreach [facility] Accountable Care [address] [address] Sherron Coleman MA 06/20/2025 [facility] Outreach [address] [address] Farheen Kline MA 06/17/2025 11:38 AM CDT - 06/17/2025 2:35 PM CDT Emergency [facility] Emergency Department [address] [place] [address] Josef Lee MD Head injury, initial encounter (Primary Dx); Weakness of both lower extremities Discharge Disposition: Discharge to home or self care from Last 3 Months Immunizations Immunization Administration [...] Smoking Tobacco: Former Cigarettes 0.5 1 1 1965 Smokeless Tobacco: Never Tobacco Cessation:Counseling Given: Not [...] making you feel afraid or unsafe? Denies 06/17/2025 Comments No Sex and Gender Information Value Date Recorded Sex Assigned at Not on file Legal Sex Female 1:42 AM [employer] Gender Identity Not on file Sexual Orientation Straight 11/01/2022 1: 18 PM [employer] Last Filed Vital Signs Vital Sign Reading Time Taken Comments Blood Pressure 154/74 08/30/2025 1:38 PM CDT Pulse 63 08/30/2025 1:38 PM CDT Temperature 37.2 C (98.9 F) 06/17/2025 11:15 AM CDT Respiratory Rate 16 06/17/2025 2:23 PM CDT Oxygen Saturation 94% 08/30/2025 1:38 PM CDT Inhaled Oxygen Concentration - - Weight 102.7 kg (226 lb 6.4 oz) 08/16/2025 1:37 PM CDT Height 162.6 cm (5' 4) 08/16/2025 1:37 PM CDT Body Mass Index 38.86 08/16/2025 1:37 PM CDT Plan of Treatment Health Maintenance Due Date Last Done Comments Depression Screening 1945 Osteoporosis Screening-Bone Density Scan 1945 Hepatitis B Screening 1963 Zoster Vaccine (1 of 2) 1995 Well Visit 65+ 2010 Fall Risk Assessment 09/10/2024 09/10/2023 Covid-19 Vaccine (4 - 2024-2 6 season) 2025 09/22/2021, 01/04/2021, 11/30/2020 Influenza Vaccine (#1) 2025 , 07/15/2022, 09/17/2021, Additional history exists DTaP/Tdap/Td Vaccine (2 - Td or Tdap) 03/27/2027 03/27/2017 Pneumococcal vaccine 65+ Completed 05/30/2015, 02/2010 Medical Devices Implanted Type Area Supervisor Refining Device Identifier Shelf Expiration Date Model / Serial / Lot [employer] Shell Acetabular Trident Ii Tritanium D Od50mm Hip 9 Hole Sterile 709-04-50d - Sna - [id number] Implanted:Qty: 1 on 11/07/2022 by Kailash Martinez MD at [facility] Other - see comments Left: Hip [employer] [id number] 12/22/2026 709-04-5 0D / NA / [id number] Description:Implant pause pe rformed. [employer] Insert Trident 0deg 36mm 723-00-36d - Sna - [id number] Implanted:Qty: 1 on 11/07/2022 by Kailash Martinez MD at [facility] Other - see comments Left: Hip [employer] [id number] 09/11/2027 723-00-3 6D / NA / [id number] Description:Implant pause pe rformed. [employer] Stem Insignia Hip Size 4 High Offset 3768-5054 - Sna - [id number] Implanted:Qty: 1 on 11/07/2022 by Kailash Martinez MD at [facility] Other - see comments Left: Hip [employer] [id number] 08/08/2027 7000-660 4 / NA / [id number] Description:Implant pause pe rformed. [employer] V40 36mm Anatomic Hip +2.5mm Offset Taper Head Femoral Biolox 6570-0-536 - Sna - [id number] Implanted:Qty: 1 on 11/07/2022 by Kailash Martinez MD at [facility] Other - see comments Left: Hip [employer] [id number] 07/19/2027 6570-0-5 36 / NA / [id number] Description:Implant pause pe rformed. [employer] Screw Bone Trident Ii L20mm Od6.5mm Low Profile Hexagonal Sterile 6616-2054 - Sna - [id number] Implanted:Qty: 1 on 11/07/2022 by Kailash Martinez MD at [facility] Screw Left: Hip [employer] [id number] 09/29/2027 7030-652 0 / NA / [id number] Description:Implant pause pe rformed. [employer] Screw Bone Trident Ii L30mm Od6.5mm Low Profile Hexagonal Sterile 6131-8894 - Sna - [id number] Implanted:Qty: 1 on 11/07/2022 by Kailash Martinez MD at [facility] Screw Left: Hip [employer] [id number] 09/17/2027 7030-653 0 / NA / [id number] Description:Implant pause pe rformed. Right Hip Replacement Right: Hip [employer] Insert Trident 0deg 36mm 723-00-36d - [id number] Implanted:Qty: 1 on 12/31/2022 by Kailash Martinez MD at [facility] Left: Hip [employer] [id number] 10/17/2027 723-00-3 6D / / [id number] [employer] V40 36mm Anatomic Hip +2.5mm Offset Taper Head Femoral [employer] 6570-0-536 - [id number] Implanted:Qty: 1 on 12/31/2022 by Kailash Martinez MD at [facility] Left: Hip [employer] [id number] 10/09/2027 6570-0-5 36 / / [id number] [employer] Stimulan Rapid Cure Kit Paste Rough Planer Tender 10cc 20cc Bone Void [id number] - [id number] Implanted:Qty: 1 on 12/31/2022 by Kailash Martinez MD at [facility] Left: Hip [employer] [id number] 08/02/2025 [id number] / / [id number] [employer] V40 36mm Anatomic Hip +5mm Offset Taper Head Femoral [employer] Delta 6570-0-236 - [id number] Implanted:Qty: 1 on 12/31/2022 by Kailash Martinez MD at [facility] Left: Hip [employer] [id number] 05/20/2027 6570-0-2 36 / / [id number] Procedures Procedure Name Priority Date/Time Associated Diagnosis Comments US VEIN DUPLEX LOWER EXTREMITY RIGHT LIMITED Schedule Routine, Read Routine (OP Routine) 09/05/2025 2:52 PM [employer] Pain in right leg URINALYSIS AND REFLEX TO MICROSCOPIC AND CULTURE STAT 06/17/2025 12:[address] HEAD WO CONTRAST ED 06/17/2025 1 2:34 PM CDT EGFR STAT 06/17/2025 12:20 PM CDT DIFFERENTIAL AUTO STAT 06/17/2025 12: 20 PM CDT CBC WITH AUTO DIFFERENTIAL STAT 06/17/2025 12:20 PM CDT COMPREHENSIVE METABOLIC PANEL STAT 06/17/2025 12:20 PM CDT from Last 3 Months Results * US Vein Duplex Lower Extremity Right Limited, Unilateral (09/05/2025 2:52 PM [employer]) Anatomical Region Laterality Modality Vascular Right Ultrasound 09/05/2025 2:30 PM [employer] Narrative 09/06/2025 3:43 PM [employer] [facility] [address] [place] [address] Lower Extremity Venous Report Patient Name: KANCHAN RIVERA L : 1945 (80y 2m) Sex: F Study Date: 09/05/2025 02:30:23 PM Pattern Setter: KELLI Location: [facility] Order Provider: SILVA MONTIEL Quality: Adequate Ref Provider: SILVA MONTIEL PROCEDURES: Vascular Report: A non-invasive vascular imaging study of the right lower extremity veins was performed using B-mode ultrasound, color flow, and spectral Doppler. INDICATIONS: Rt posterior thigh and calf pain x 3 weeks. HISTORY: HTN. HLD. Afib. Former smoker. COMPARISONS: No previous exams. FINDINGS: Right: Negative for deep and superficial vein thrombosis in the right lower extremity. Normal compressibility and color filling, spontaneous and phasic flow, and response to distal augmentation is demonstrated in the right common femoral vein, saphenofemoral junction, proximal femoral vein, mid femoral vein, distal femoral vein, profunda vein, popliteal vein, posterior tibial veins, peroneal veins, gastrocnemius veins and soleal veins. For comparison purposes, the left common femoral vein was interrogated. The common femoral vein Doppler flow was phasic, spontaneous and responded normally to distal augmentation. CONCLUSIONS: 1. Negative for deep and superficial vein thrombosis in the right lower extremity. ATTESTATION: I have reviewed and interpreted the pertinent images and measurements of this study. I attest to the conclusions in the final report that is provided above. Electronically Signed By: Costa Sawyer MD 09/06/2025 2:30:36 PM [employer] Procedure Note Costa Sawyer MD - 09/06/2025 [facility] Ve[facility] Surgery [address] [place] [address] Lower Extremity Venous Report Patient Name: KANCHAN RIVERA L : 1945 (80y 2m) Sex: F Study Date: 09/05/2025 02:30:23 PM Pattern Setter: KELLI Location: [facility] Order Provider: SILVA MONTIEL Quality: Adequate Ref Provider: SILVA MONTIEL PROCEDURES: Vascular Report: A non-invasive vascular imaging study of the right lowerextremity veins was performed using B-mode ultrasound, color flow, and spectral Doppler. INDICATIONS: Rt posterior thigh and calf pain x 3 weeks. HISTORY: HTN. HLD. Afib. Former smoker. COMPARISONS: No previous exams. FINDINGS: Right: Negative for deep and superficial vein thrombosis in the rightlower extremity. Normal compressibility and color filling, spontaneous and phasic flow, andresponse to distal augmentation is demonstrated in the right common femoral vein,saphenofemoral junction, proximal femoral vein, mid femoral vein, distal femoral vein,profunda vein, popliteal vein, posterior tibial veins, peroneal veins, gastrocnemiusveins and soleal veins. For comparison purposes, the left common femoral vein wasinterrogated. The common femoral vein Doppler flow was phasic, spontaneous and responded normallyto distal augmentation. CONCLUSIONS: 1. Negative for deep and superficial vein thrombosis in the right lowerextremity. ATTESTATION: I have reviewed and interpreted the pertinent images and measurements ofthis study. I attest to the conclusions in the final report that is provided above. Electronically Signed By: Costa Sawyer MD 09/06/2025 2:30:36 PM [employer] Silva Montiel NP IMG US PROCEDURES Final R esult * Urinalysis reflex to microscopic and culture Urine (06/17/2025 12:47 PM CDT) Color, ur Yellow Yellow Clarity, ur Clear Clear [facility] ([place]) Specific gravity, ur 1.012 1.003 - 1.030 [facility] ([place]) pH, urine 6.5 [facility] ([place]) Comment: Interpretive Data U rine pH is affected by diet, medications, systemic acid-base disturbances, and renal tubular function. pH may affect urinary stone formation. For example, urine pH below 6.0 may help reduce the tendency for calcium phosphate stones and pH greater than 6.0 may reduce the tendency for uric acid stone formation. Source: [employer] Current Interpretive Data was last revised on 2017 Protein, ur ql Negative Negative [facility] ([place]) Glucose, ur ql Negative Negative [facility] ([place]) Ketones, ur Negative Negative [facility] ([place]) Bilirubin, ur Negative Negative [facility] ([place]) Blood, ur Negative Negative [facility] ([place]) Urobilinogen, ur <2.0 <2.0 mg/dL [facility] ([place]) Nitrite, ur Negative Negative [facility] ([facility]) Leukocyte esterase, ur Negative Negative [facility] ([facility]) UA reflex comment Reflex conditions for microscopic UA and culture not met. [facility] ([facility]) Urine 06/17/2025 12:4 7 PM CDT 06/17/2025 1:53 PM CDT us Josef Lee MD LAB MICROBIOLOGY - GENERAL ORD ERABLES Final Result [facility] ([place]) [facility] Department [place] [address] * CT Head WO Contrast (06/17/2025 12:34 PM CDT) Anatomical Region Laterality Modality Head and Neck N/A Computed Tomogra phy 06/17/2025 1:33 PM CDT Narrative 06/17/2025 1:39 PM CDT EXAM DESCRIPTION: CT HEAD WO CONTRAST REASON FOR STUDY: head strike, on eliquis Head injury (hitting head on car door or cabinet) 6 days ago. Per pt she is concerned of a brain bleed due to her legs becoming weak after falling on Friday. Pt reports some dizziness. TECHNIQUE: Axial images acquired through the brain without intravenous contrast. Images stored on PACS. Automated exposure control was used as a dose optimization technique for this examination. COMPARISON: None FINDINGS: BRAIN: No hemorrhage, edema or mass effect. No recent infarct. There are subtle areas of low attenuation in the supratentorial deep cerebral white matter, likely related to chronic microangiopathy. There is mild generalized atrophy. No hydrocephalus. EXTRA-AXIAL SPACES: No fluid collections. No masses. CALVARIUM: No fracture. SINUSES/MASTOIDS: There is partial opacification of the right mastoid air cells. ORBITS: No significant abnormality. OTHER: No other significant abnormality. IMPRESSION: No acute intracranial findings. Partial opacification of the right mastoid air cells which can be seen in mastoid effusion. THIS IS AN ELECTRONICALLY VERIFIED FINAL REPORT 06/17/2025 1:39 PM - Electronically signed by Michael Rivero M.D. AM: AM Report ID: [id number] Reading Location: [id number] Procedure Note Michael Rivero MD - 06/17/2025 EXAM DESCRIPTION: CT HEAD WO CONTRAST REASON FOR STUDY: head strike, on eliquis Head injury (hitting head on car door or cabinet) 6 days ago. Per pt sheis concerned of a brain bleed due to her legs becoming weak after falling on Friday. Pt reports some dizziness. TECHNIQUE: Axial images acquired through the brain without intravenous contrast. Images stored on PACS. Automated exposure control was used asa dose optimization technique for this examination. COMPARISON: None FINDINGS: BRAIN: No hemorrhage, edema or mass effect. No recent infarct. Thereare subtle areas of low attenuation in the supratentorial deep cerebral white matter, likely related to chronic microangiopathy. There is mild generalized atrophy. No hydrocephalus. EXTRA-AXIAL SPACES: No fluid collections. No masses. CALVARIUM: No fracture. SINUSES/MASTOIDS: There is partial opacification of the right mastoidair cells. ORBITS: No significant abnormality. OTHER: No other significant abnormality. IMPRESSION: No acute intracranial findings. Partial opacification of the right mastoid air cells which can be seen in mastoid effusion. THIS IS AN ELECTRONICALLY VERIFIED FINAL REPORT 06/17/2025 1:39 PM - Electronically signed by Michael Rivero M.D. AM: AM Report ID: [id number] Reading Location: [id number] [facility] [place] PROCEDURES Final Result * eGFR (06/17/2025 12:20 PM CDT) eGFR 68 >=60 mL/min/1. 73 m2 Comment: Interpretive Data Reference Interval Normal >/= 90 mL/min/1.73m2 Mildly decreased* 60 - 89 mL/min/1.73m2 Mildly to moderately decreased 45 - 59 mL/min/1.73m2 Moderately to severely decreased 30 - 44 mL/min/1.73m2 Severely decreased 15 - 29 mL/min/1.73m2 Kidney Failure < 15 mL/min/1.73m2 *Relative to young adult level Estimated glomerular filtration rate is determined by the 2020 CKD-EPI equation recommended by the National Kidney Foundation (A Unifying Approach to GFR Estimation: Recommendations of the NKF-ASK Task Force on Reassessing the Inclusion of Race in Diagnosing Kidney Disease, JASN 2020). The CKD-EPI equation should not be used for patients with unstable renal function and has not been validated in children and those over 70. Current interpretive data was last reviewed 2021. Blood 06/17/2025 12:2 0 PM CDT 06/17/2025 12:23 PM CDT us Josef Lee MD LAB BLOOD ORDERABLES Final Res ult [facility] ([place] Department [place] [address] * (ABNORMAL) Differential, auto (06/17/2025 12:20 PM CDT) Neutrophil abs 5.39 1.50 - 6.50 K/cumm Imm gran abs 0.03 0.00 - 0.10 K/cumm [facility] ([place]) Lymphocyte abs 1.46 0.80 - 3.30 K/cumm [facility] ([place]) Monocyte abs 0.84(H) 0.20 - 0.80 K/cumm [facility] ([place]) Eosinophil abs 0.56(H) 0.00 - 0.50 K/cumm [facility] ([place]) Basophil abs 0.07 0.00 - 0.10 K/cumm [facility] ([place]) Neutrophil pct 64.5 % [facility] ([place]) Comment: Interpretive Data Percent cell count reference ranges are not reported, since discordance with absolute values may lead to misinterpretation of CBC data. Current Interpretive Data was last revised on 2018. Imm gran pct 0.4 % [facility] ([place]) Comment: Interpretive Data Percent cell count reference ranges are not reported, since discordance with absolute values may lead to misinterpretation of CBC data. Current Interpretive Data was last revised on 2018. Lymphocyte pct 17.5 % [facility] ([place]) Comment: Interpretive Data Percent cell count reference ranges are not reported, since discordance with absolute values may lead to misinterpretation of CBC data. Current Interpretive Data was last revised on 2018. Monocyte pct 10.1 % [facility] ([place]) Comment: Interpretive Data Percent cell count reference ranges are not reported, since discordance with absolute values may lead to misinterpretation of CBC data. Current Interpretive Data was last revised on 2018. Eosinophil pct 6.7 % [facility] ([place]) Comment: Interpretive Data Percent cell count reference ranges are not reported, since discordance with absolute values may lead to misinterpretation of CBC data. Current Interpretive Data was last revised on 2018. Basophil pct 0.8 % [facility] ([facility]) Comment: Interpretive Data Percent cell count reference ranges are not reported, since discordance with absolute values may lead to misinterpretation of CBC data. Current Interpretive Data was last revised on 2018. Blood 06/17/2025 12:2 0 PM CDT 06/17/2025 12:23 PM CDT us Josef Lee MD LAB BLOOD ORDERABLES Final Res ult [facility] ([place]) [facility] Department [place] [address] * (ABNORMAL) CBC with auto differential (06/17/2025 12:20 PM CDT) WBC 8.35 3.80 - 9.90 K/cumm Hgb 11.7(L) 11.9 - 15.5 g/dL [facility] ([place]) Hct 36.6 35.6 - 45.5 % [facility] ([place]) Plt 292 150 - 400 K/cumm [facility] ([place]) MPV 9.2 9.1 - 12.3 fL [facility] RBC 3.97 3.90 - 5.20 M/cumm [facility] ([place]) MCV 92.2 81.3 - 96.4 fL [facility] ([place]) MCH 29.5 27.1 - 33.3 pg [facility] MCHC 32.0(L) 32.3 - 35.7 g/dL [facility] RDW CV 12.7 11.1 - 14.9 % [facility] ([place]) RDW SD 42.8 35.7 - 48.1 fL [facility] NRBC abs 0.00 0.00 - 0.01 K/cumm [facility] Blood 06/17/2025 12:2 0 PM CDT 06/17/2025 12:23 PM CDT us Josef Lee MD LAB BLOOD ORDERABLES Final Res ult [facility] Department [place] [address] * (ABNORMAL) Comprehensive metabolic panel (06/17/2025 12:20 PM CDT) Sodium 141 135 - 145 mmol/L [facility] Potassium, pl 5.0(H) 3.3 - 4.9 mmol/L [facility] Chloride 107 97 - 110 mmol/L [facility]) CO2 22 22 - 32 mmol/L [facility] ([place]) Anion gap 12 2 - 15 mmol/L [facility] BUN 17 6 - 25 mg/dL [facility] Creatinine 0.86 0.60 - 1.10 mg/dL [facility] ([place]) Glucose 100 70 - 199 mg/dL [facility] Comment: Interpretive Data Fasting glucose >/= 126 mg/dl is diagnostic for diabetes. Fasting is defined as no caloric intake for at least 8 hours. Fasting glucose between 100 mg/dl to 125 mg/dl is diagnostic of prediabetes. In a patient with classic symptoms of hyperglycemia or hyperglycemic crisis, a random glucose >/= 200 mg/dl is diagnostic for diabetes. In the absence of unequivocal hyperglycemia, results should be confirmed by repeat testing. The classification and Diagnosis of Diabetes Diabetes Care 202; 46: S19-S40. Current interpretive data was last revised 2022. Calcium 9.7 8.5 - 10.3 mg/dL [facility] ([facility]) Bilirubin, total 0.3 0.1 - 1.2 mg/dL [facility] ([place]) Protein, pl 7.4 6.5 - 8.5 g/dL [facility] ([place]) Albumin 4.1 3.5 - 5.0 g/dL [facility] ([place]) Alk phos 104 40 - 130 Units/L [facility] ([place]) ALT 20 7 - 45 Units/L [facility] ([place]) AST 29 10 - 45 Units/L [facility] ([place]) Comment:Hemolysis present. Results may be affected. Blood 06/17/2025 12:2 0 PM CDT 06/17/2025 12:23 PM CDT us Josef Lee MD LAB BLOOD ORDERABLES Final Res ult [facility] ([place]) [facility] Department [place] [address] from Last 3 Months Insurance MEDICARE [facility] MEDICARE SUPPLEMENT MEDICARE [facility] [address] [employer] MEDICARE SUPPLEMENT MEDICARE [facility] Advance Directives For more information, please contact: [phone] * Full Code (Latest Code Status on File) Date Activated Date Inactivated Comments 12/31/2022 9:16 PM 01/09/2023 9:05 PM * Full Code Date Activated Date Inactivated Comments 11/07/2022 4:23 PM 11/08/2022 3:19 PM Care Teams Conflict Resolution Professional Relationship Specialty Start Date End Date Faith Shukla DO PCP - General Family Medicine 03/14/22
== END 2025-09-13 14:00 | disposition home or self-care (01) ==
PROVIDERS: PCP Family Medicine; Visit Provider Family Medicine
DX: Z12.31 Encounter for screening mammogram for malignant neoplasm of breast (principal); M85.88 Other specified disorders of bone density and structure, other site; R92.8 Other abnormal and inconclusive findings on diagnostic imaging of breast
CPT/HCPCS: 77063; 77067; 77080